=== PATIENT | male | born 1955 | race Caucasian/White ===

== ENCOUNTER → 2016-12-14 | Outpatient (CLI) | payer MEDICARE ==
--- NOTE | 2016-12-15 09:42 | PE ---
Nuclear medicine PET/CT HISTORY: Lymphoma Patient received 13.6 mCi F-18 FDG intravenously. Delayed scanning performed from the skull base thro ugh the mid thighs. Localization and attenuation correction CT scan was performed, exam correlated to prior nuclear medicine PET/CT 08 June 2016 FINDINGS: Neck and chest: There is no evident adenopathy. Dense carotid artery calcifications are present. No m ediastinal, axillary, or hilar adenopathy. Patient is post median sternotomy, dense coronary artery c alcifications are present. There is no evident lung mass. No significant hypermetabolic uptake is sandra dent. ABDOMEN: No retroperitoneal adenopathy. No hypermetabolic uptake. Patient is post cholecystectomy. Pr ostatic calcifications again seen. Osseous structures are unremarkable. No significant interval change. IMPRESSION: Stable exam. No suspicious hypermetabolic uptake is evident. No evident adenopathy or rec urrent disease.
== END | disposition home or self-care (01) ==
LOC: RADPETMAIN 07:23
PROVIDERS: ATTEND Internal Medicine Hematology & Oncology
DX: C85.19 Unspecified B-cell lymphoma, extranodal and solid organ sites (principal)
CPT/HCPCS: 78815; A9552

== ENCOUNTER → 2017-01-17 | Outpatient (CLI) | payer MEDICARE, BC ==
[2017-01-17 12:20] LABS: EKG EKG PERFORMED
[2017-01-17 12:57] LABS: Basophils % (A) 1 %; CH 32.9; Eosinophils # (A) 0.1 k/uL (0-0.7); Eosinophils % (A) 2 %; HCT 37.9 % (39.0-53.0); HDW 3.29; HGB 12.6 gm/dL (13.0-17.5); Luc # (Auto) 0.11; Luc % (Auto) 3; Lymphocytes # (A) 0.8 k/uL (1.0-4.8); Lymphocytes % (A) 20 %; MCH 32.5 pg (25.0-35.0); MCHC 33.3 g/dL (31.0-37.0); MCV 97.4 fL (80.0-100.0); Mean Platelet Volume 6.9; Monocytes # (A) 0.3 k/uL (0-1.0); Monocytes % (A) 9 %; Neutrophils # (A) 2.5 k/uL (1.3-7.7); Neutrophils % (A) 66 %; RBC 3.88 m/uL (4.30-5.90); RDW 15.1 % (11.5-15.5); WBC 3.8 k/uL (3.8-10.6); WBC (Perox) 3.88
[2017-01-17 13:01] LABS: Appearance,Urine Clear (Clear); Bilirubin,Urine Negative (Negative); Glucose,Urine (UA) Negative (Negative); Ketones,Urine Negative (Negative); Leukocyte Esterase,Urine Negative (Negative); Nitrite,Urine Negative (Negative); Protein,Urine Negative (Negative); Specific Gravity,Urine 1.004 (1.001-1.035); UA Billing (MACRO vs. MICRO) CHEM; Urobilinogen,Urine <2.0 mg/dL (<2.0)
[2017-01-17 13:02] LABS: INR 1.1 (<1.1); Partial Thromboplastin Time 23.3 sec (22.0-30.0); Prothrombin Time 10.7 sec (9.0-12.0)
[2017-01-17 13:19] LABS: ALT 31 U/L (21-72); AST 26 U/L (17-59); Alkaline Phosphatase 55 U/L (38-126); Anion Gap 12 mmol/L; Blood Urea Nitrogen 14 mg/dL (9-20); Calcium 9.3 mg/dL (8.4-10.2); Carbon Dioxide 23 mmol/L (22-30); Chloride 105 mmol/L (98-107); Glucose 89 mg/dL (74-99); Non-African American GFR(MDRD) >60 (>60 ml/min/1.73 sqM); Potassium 4.5 mmol/L (3.5-5.1); Sodium 140 mmol/L (137-145); Total Bilirubin 0.7 mg/dL (0.2-1.3)
== END | disposition home or self-care (01) ==
LOC: LABPAT 12:09
PROVIDERS: ATTEND Orthopaedic Surgery Sports Medicine
DX: Z01.810 Encounter for preprocedural cardiovascular examination (principal); Z01.812 Encounter for preprocedural laboratory examination; Z51.81 Encounter for therapeutic drug level monitoring; Z79.01 Long term (current) use of anticoagulants
CPT/HCPCS: 80053; 81003; 85025; 85610; 85730; 87070; 93005

== ENCOUNTER 2017-02-06 09:26 | Inpatient (IN) | payer MEDICARE, BC ==
[~2017-02-06 09:26] MED LIST: ACETAMINOPHEN TAB 500 MG TAB PO ONE; DEXAMETHASONE SOD PHOSPHATE 10 MG/ML 1 ML VIAL IV ONE; HYDROmorphone 1 MG/ML 1 ML SYRINGE IVP PRN; LACTATED RINGERS 1,000 ML IV SCH; MELOXICAM 7.5 MG TAB PO ONE; MIDAZOLAM 2 MG/2 ML VIAL IV PRN; ONDANSETRON 4 MG/2 ML VIAL IVP ONE; TRANEXAMIC ACID 1,000 MG in SODIUM CHLORIDE 0.9% 100 ML IVPB ONE; ceFAZolin 2 GM in SODIUM CHLORIDE 0.9% 100 ML IVPB ONE
[2017-02-06] MEDS ORDERED: LIDOCAINE 1% 20 ML VIAL (10MG/ML) FOR IV START INTRADERMA ONE (09:48)
[2017-02-06] MEDS ORDERED: SUCCINYLCHOLINE CHLORIDE 100 MG/5 ML SYR IV ONE (11:00)
[2017-02-06] MEDS ORDERED: TRANEXAMIC ACID 1,000 MG/10 ML VIAL ONE (11:00)
[2017-02-06] MEDS ORDERED: SODIUM CHLORIDE 0.9% 100 ML BAG ONE (11:00)
[2017-02-06] MEDS ORDERED: HYDROmorphone (PF) 1 MG/ML ONE (11:00)
[2017-02-06] MEDS ORDERED: ROCURONIUM BROMIDE 10 MG/ML 10 ML VIAL IV ONE (11:00)
[2017-02-06] MEDS ORDERED: PROPOFOL 10 MG/ML 20 ML VIAL IV ONE (11:00)
[2017-02-06] MEDS ORDERED: MIDAZOLAM 2 MG/2 ML VIAL ONE (11:00)
[2017-02-06] MEDS ORDERED: ePHEDrine 50 MG/ML 1 ML AMP ONE (11:00)
[2017-02-06] MEDS ORDERED: NEOSTIGMINE 1 MG/ML 10 ML VIAL ONE (11:00)
[2017-02-06] MEDS ORDERED: fentaNYL (PF) 50 MCG/ML 2 ML AMP ONE (11:00)
[2017-02-06] MEDS ORDERED: LIDOCAINE 1% INJ 10MG/ML (20 ML MDV) ONE (11:00)
[2017-02-06] MEDS ORDERED: PHENYLEPHRINE-0.9% NACL SYG 1 MG/10 ML SYRINGE ONE (11:00)
[2017-02-06] MEDS ORDERED: GLYCOPYRROLATE 0.2 MG/ML 2 ML VIAL ONE (11:00)
[2017-02-06] MEDS ORDERED: ceFAZolin 3,000 MG in SODIUM CHLORIDE 0.9% IRRIGATIO 3,000 ML IRRIGATION ONE (11:59)
[2017-02-06] MEDS ORDERED: LACTATED RINGERS 1,000 ML IV ONE ×3 (12:36→14:33)
[2017-02-06] MEDS ORDERED: VANCOMYCIN 1,000 MG VIAL MISCELLANE ONE (12:50)
[2017-02-06] MEDS ORDERED: hydrOXYzine PAMOATE 25 MG CAP PO PRN (13:32)
[2017-02-06] MEDS ORDERED: SENNOSIDES-DOCUSATE SODIUM 1 EACH TAB PO PRN (13:32)
[2017-02-06] MEDS ORDERED: PROCHLORPERAZINE SUPPOSITORY 25 MG SUPP RECTAL PRN (13:32)
[2017-02-06] MEDS ORDERED: METOCLOPRAMIDE 5 MG/ML 2 ML VIAL IVP PRN (13:32)
[2017-02-06] MEDS ORDERED: TEMAZEPAM 15 MG CAP PO PRN (13:32)
[2017-02-06] MEDS ORDERED: HYDROcodone/APAP 5-325MG 1 EACH TAB PO PRN (13:32)
[2017-02-06] MEDS ORDERED: HYDROmorphone 1 MG/ML 1 ML SYRINGE IVP PRN ×2 (13:32)
[2017-02-06] MEDS ORDERED: diphenhydrAMINE 25 MG CAP PO PRN (13:32)
[2017-02-06] MEDS ORDERED: ONDANSETRON 4 MG/2 ML VIAL IVP PRN (13:32)
--- NOTE | 2017-02-06 14:13 | XR ---
Right shoulder HISTORY: Postop alignment Single frontal view of the right shoulder, no comparisons Patient is status post right shoulder arthroplasty. There is a surgical drain in place. Alignment lakhwinder ears near anatomic in this single view. Distal right clavicular resection changes noted. Facet arthro chanel and the cervical spine. There are overlying leads. Vascular calcifications noted incidentally. Lucency in the soft tissues likely due to postop state. IMPRESSION: Orthopedic follow-up
[2017-02-06 15:01] VITALS: BMI 30.1
[2017-02-06] MEDS: ceFAZolin 2 GM in SODIUM CHLORIDE 0.9% 100 ML IVPB SCH (17:17)
[2017-02-06] MEDS: LACTATED RINGERS 1,000 ML IV SCH (17:19)
[2017-02-06] MEDS ORDERED: NITROGLYCERIN SL TABS 0.4 MG TAB SUBLINGUAL PRN (18:17)
[2017-02-06] MEDS ORDERED: HYDROCHLOROTHIAZIDE 12.5 MG CAP PO PRN (18:17)
--- NOTE | 2017-02-06 18:43 | P.ONQ ---
Anesthesiology Proc Note - PNB - Peripheral Nerve Block Performed Right Interscalene Single Time Out Performed: Yes Indication: Acute Post-Operative Pain, Requested by physician Sedation Type: Awake Preparation: Sterile Prep Position: Supine Catheter: None Needle Size: 50mm (2") Needle Gauge: 21 Technique: Ultrasound Injectate: 0.5% Ropivacaine (see comment for volume) (ropi .5% 20cc plus xylo2 % with epi 15cc) Blood Aspirated: No Pain Paresthesia on Injection Noted: No Resistance on Injection: Normal Events: Uneventful and Well Tolerated
[2017-02-06] MEDS: HYDROcodone/APAP 5-325MG 1 EACH TAB PO PRN (19:55)
[2017-02-06] MEDS ORDERED: TICAGRELOR 90 MG TAB PO SCH (21:00)
[2017-02-06] MEDS ORDERED: ATORVASTATIN 80 MG TAB PO SCH (21:00)
[2017-02-06] MEDS ORDERED: amLODIPine 5 MG TAB PO SCH (21:00)
[2017-02-06] MEDS ORDERED: FOLIC ACID 1 MG TAB PO SCH (21:00)
[2017-02-06] MEDS: MORPHINE SULFATE IR 15 MG TABLET PO SCH (22:12)
[2017-02-06] MEDS: TICAGRELOR 90 MG TAB PO SCH (22:13)
[2017-02-06] MEDS: DOXYCYCLINE 50 MG CAP PO SCH (22:13)
[2017-02-06] MEDS: ISOSORBIDE MONONITRATE ER 60 MG TAB.ER.24H PO SCH (22:33)
[2017-02-06] MEDS: RANOLAZINE 500 MG TAB.ER.12H PO SCH (22:34)
[2017-02-06] MEDS: GABAPENTIN 300 MG CAP PO SCH (22:34)
[2017-02-06] MEDS: METOPROLOL TARTRATE 50 MG TAB PO SCH (22:34)
--- NOTE | 2017-02-07 00:01 | OP ---
DATE OF SERVICE: 02/06/2017 SURGEON: OMID THOMAS MD CATERER HELPER: Spenser SIDHU PREOPERATIVE DIAGNOSIS: Right shoulder advanced osteoarthrosis. POSTOPERATIVE DIAGNOSIS: Right shoulder advanced osteoarthrosis with large rotator cuff tear. OPERATION: Right reverse total shoulder arthroplasty. ANESTHESIA: General endotracheal. ESTIMATED BLOOD LOSS: 200 mL DRAINS: One deep drain. SPECIMENS REMOVED: COMPLICATIONS: None apparent. DISPOSITION: Post-Anesthesia Care Unit. OPERATIVE FINDINGS: DESCRIPTION OF PROCEDURE: INDICATIONS: Mr. Batres is a very pleasant 61-year-old gentleman with long-standing right shoulder pain. Workup including x-rays and MRI revealed advanced osteoarthritis of the right shoulder with a full-thickness rotator cuff tear. At this point it is felt that he has failed conservative management and he would like to proceed with operative intervention. The risks of the procedure were discussed with him in detail. These risks include but are not limited to risk of infection, nerve damage, bleeding, pain, instability in the shoulder, loosening of implants and deep infection. There is also a risk of deep vein thrombosis which could lead to fatal prominent pulmonary embolism. The patient understood the risks. All of his questions with regards to the risks were answered to his satisfaction. Appropriate informed consent was obtained. DESCRIPTION OF THE PROCEDURE: The patient was identified in the preoperative holding area. The surgical site was marked by both the patient and myself. He was given 2 grams of Ancef IV for prophylactic purposes. He was then transferred to the operative suite, where he was placed supine on the operating room table. General anesthetic was then administered and dosed by the anesthesia department without apparent complication. Examination under anesthesia was then performed of the right shoulder. He had elevation to 120 degrees, external rotation to the side was to 30 degrees. Patient's right upper extremity was then prepped and draped in the usual sterile fashion. Standard surgical pause was then undertaken to ensure that we were operating on the correct site and that appropriate preoperative antibiotics had been given. All staff in the room were in agreement and we proceeded. The acromion, AC joint, clavicle and coracoid were marked with a surgical pen. He had a previous incision over his clavicle extending distally that was also marked with a surgical pen. A planned incision starting at the level of the clavicle, incorporating his previous incision and extending distally over the deltopectoral interval approximately 1 cm lateral to the coracoid, was then marked with a surgical pen. The incision was then made with a 10 blade scalpel. Dissection was then carried down sharply to the deltoid fascia. The deltopectoral interval was identified at the level of the clavicle. A small band retractor was then placed onto the proximal deltoid. I then released the deltoid fascia on the lateral aspect of the cephalic vein. The vein was protected and left in its bed medially. The cephalic vein was protected throughout the rest of the entire case. I then identified the clavipectoral fascia. It was incised proximally to the level of the coracoacromial ligament. The coracoacromial ligament was left intact. I then used my finger to spread the interval between the conjoined tendon and the subscapularis. I felt for the axillary nerve, which was readily palpable. I then cleared the subacromial and subdeltoid spaces of bursal and scar tissue. I then utilized a Kuamr retractor to hold the deltoid and expose the humeral head. I then proceeded with release of the subscapularis and the anterior/inferior shoulder capsule. The rotator cuff was inspected; a very large tear of the supraspinatus. That was retracted to the mid aspect of the humeral head. The course of the biceps tendon was also identified. I then released subscapularis at the base of the coracoid and then out laterally. The subscapularis and the anterior capsule were then released intratendinously. The subscapularis and the capsule release extended distally in a lazy S fashion, approximately 1 cm medial to the bicipital groove. I then continued to release the capsule along the inferior neck in a vertical fashion to about the 6 o'clock position. Great care was taken to ensure that the capsule was always visualized as it was released to avoid injuring the axillary nerve. I then brought a Guzmán channel cementer insole machine with the arm externally rotated and abducted. I continued to release the capsule inferomedially to the 4 o'clock position. The inferior osteophytes were now removed as well. This was done with a rongeur. I then proceeded with preparation of the humerus. I removed all the inferior goat's hartley osteophytes. I then removed the subchondral plate from the superior aspect of the humeral head utilizing a large rongeur. I then used a starter reamer to gain access to the humeral canal. This was approximately 1 cm medial to the rotator cuff insertion and 1 cm posterior to the bicipital groove. I then prepared the humeral canal with hand reaming. I started with a 6 mm reamer and progressed in 1 mm increments until firm resistance was encountered. This was at 13 mm. Reamer handle was then left in place. I then utilized the humeral resection guide set at 30 degrees of retrotorsion. The cutting block was then set at the insertion of the rotator cuff. I then proceeded to osteotomize the head with an oscillating saw. I removed the resection guide and then completed the osteotomy. I then proceeded with trial stem placement, starting with a 6 mm broach up to a 13 mm broach. A 13 mm trial mini stem was then placed. At this point I did release the biceps tendon. This was tenotomized at the level of the superior labrum. Prior to tenotomizing the biceps, I tenodesed it to the soft tissue about the bicipital groove. A bone hook was then utilized to pull the humerus laterally. I then inspected the joint for any loose bodies. The condition of the cuff was again inspected. He had a very large tear of the supraspinatus. Decision at this point was to go forward with a reverse total shoulder arthroplasty. The Batman retractor was then placed onto the posterior glenoid rim. With the arm placed in approximately 70 to 80 degrees of abduction and slight flexion on the Guzmán stand, I proceeded to remove the hypertrophic labrum to definitively identify the actual glenoid. I then identified the center of the glenoid fossa. The mini glenoid baseplate template was then placed against the glenoid and the pin was placed with 10 degrees of inferior tilt in the center of the glenoid. I then proceeded with reaming. I utilized the mini baseplate reamer and reamed. This preferentially reamed the inferior aspect of the glenoid, again accounting for inferior tilt of the baseplate. I then placed the mini glenoid baseplate and proceeded with placing of the central and peripheral screws. The central screw was a 35 mm central screw. It had excellent purchase in bone. I was able to rotate the scapula through the screwdriver once the screw was firmly seated. I then placed the peripheral screws. The superior and inferior screws were 25 mm locking screws. The anterior and posterior screws were 15 mm locking screws. I then proceeded to place the glenosphere. I selected a 36 standard glenosphere. It was then offset maximally to allow for inferior placement of the glenosphere. The glenosphere was then impacted onto the Maldonado taper of the base plate. I then delivered the proximal humerus out of the wound again. The trial stem was removed. I then trialed the shoulder. I placed a 36 standard baseplate and standard poly. It was very difficult to reduce the shoulder. It was stable throughout. A full range of motion with this tension seemed appropriate. There was no undue tension on the conjoined tendon or on the deltoid. It was then re-dislocated utilizing a bone hook to assist in re-dislocating. I then decided to go forward with a standard baseplate and standard poly. The trial stem was then removed. The maintenance representative open a Biomet 13 mini stem, a standard 36 baseplate and a standard 36 poly. The stem was then inserted in 30 degrees of retrotorsion. The standard poly and baseplate were assembled on the back table and then impacted onto the Maldonado taper of the stem. The shoulder was then reduced. Again it was taken through a full range of motion. It was stable. There was no undue tension on the conjoined tendon or the deltoid. There was no impingement noted throughout the range of motion. I then proceeded with closure. Again the wound was thoroughly irrigated with sterile saline solution via pulse lavage. There was antibiotic added to the saline solution. I then felt for the axillary nerve, which was again readily palpable and intact. I then proceeded with closure of the subscapularis. I was able to repair it. This was then repaired with #1 Vicryl interrupted suture. This was done with the arm in approximately 20 degrees of external rotation. I again felt for the axillary nerve, which was readily palpable and intact. The wound was again thoroughly irrigated with sterile saline solution with antibiotic added. A deep drain was then placed and brought out superiorly away from the incision. Approximately 500 mg of vancomycin powder was then placed within the wound. The deltopectoral interval was then closed with 0 Vicryl interrupted suture. Again the wound was thoroughly irrigated with sterile saline solution with antibiotic added. The remaining 500 mg of vancomycin powder was then placed within the wound. Subcutaneous tissue was then closed with 2-0 Vicryl interrupted suture and the skin was closed with a running 3-0 Quill suture. Dermabond was applied to the incision. Sterile compressive dressing was applied. Patient's right upper extremity was placed into a standard sling. Final components were a Biomet mini baseplate, a 36 standard glenosphere, a 13 mini stem, 36 standard baseplate and a 36 standard poly. All sponge and needle counts were deemed correct prior to closure. The patient tolerated the procedure without apparent complication. He was transferred to the recovery room in stable condition.
[2017-02-07] MEDS: HYDROcodone/APAP 5-325MG 1 EACH TAB PO PRN ×2 (01:43→08:17)
[2017-02-07] MEDS: ceFAZolin 2 GM in SODIUM CHLORIDE 0.9% 100 ML IVPB SCH (01:43)
[2017-02-07] MEDS: HYDROmorphone 1 MG/ML 1 ML SYRINGE IVP PRN ×3 (04:05→09:56)
[2017-02-07] MEDS: LACTATED RINGERS 1,000 ML IV SCH ×2 (04:05→09:56)
--- NOTE | 2017-02-07 07:36 | CONS ---
DATE OF CONSULTATION: REASON FOR CONSULTATION: Advice regarding CAD and other medications requested by Orthopedic Surgery. 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 Elliot Grande in the outpatient setting underwent total right shoulder arthroplasty. The patient improved significantly. There is no significant fever, rigors or chills. There is no history of headache, loss of consciousness, no chest pain, palpitations. Past medical history of CAD, history of COPD, hypertension, hyperlipidemia, history of myocardial infarction, history of DJD, history of sleep apnea. Medications prior to admission include Norvasc 5 mg q.h.s., Brilinta 90 mg p.o. b.i.d., Crestor 40 mg q.h.s., Ranexa 1000 mg p.o. b.i.d., Nitrostat 0.4 sublingual p.r.n., MSIR 50 mg p.o. b.i.d., Lopressor 50 mg p.o. b.i.d., Cozaar 50 mg p.o. daily, Imdur is 120 mg p.o. b.i.d., [place] 5 mg 1 tablet q.4 to 6 p.r.n., HydroDIURIL 12.5 p.o. daily p.r.n., Neurontin 300 mg p.o. b.i.d., folic acid 1 mg q.h.s., Ecotrin 81 mg p.o. daily. ALLERGIES: ADHESIVES. FAMILY HISTORY: History of cancer and hypertension in the family. SOCIAL HISTORY: Previous history of smoking. Occasional alcohol intake. REVIEW OF SYSTEMS: ENT: No diminishing hearing. No diminished vision. CARDIOVASCULAR: No angina or palpitation. RESPIRATION: As mentioned earlier. GI: No nausea. : No dysuria. NERVOUS SYSTEM: No numbness or weakness. ALLERGY/IMMUNOLOGY: No asthma or hayfever. MUSCULOSKELETAL: As mentioned earlier. HEMATOLOGY/ONCOLOGY: As mentioned earlier. ENDOCRINE: No history of diabetes or hypothyroidism. CONSTITUTIONAL: As mentioned earlier. DERMATOLOGY: Negative. RHEUMATOLOGY: Negative. PSYCHIATRY: As mentioned earlier. PHYSICAL EXAM: Patient is alert and oriented x3. Pulse if 67, blood pressure 97/53, respirations 16, temperature is normal. Pulse ox is 95% on 2 L. HEENT: Conjunctivae normal. Oral mucosa moist. NECK: No jugular venous distention. No carotid bruit. No lymph node enlargement. CARDIOVASCULAR SYSTEM: S1, S2. RESPIRATORY: Breath sounds diminished at the bases. No rhonchi, no crackles. Abdomen is soft, nontender, no mass palpable. LEGS: No edema, no swelling. NERVOUS SYSTEM: Higher functions as mentioned earlier, moves all 4 limbs. No focal deficits. LYMPHATICS: No lymph node enlargement. SKIN: No ulcer, rash or bleeding. JOINTS: Status post right shoulder arthroplasty. LABS: Hemoglobin 12.6. Otherwise, the coags are normal. Chemistries, sugar is 147, total protein is 6. ASSESSMENT: 1. Status post right shoulder arthroplasty. 2. History of large diffuse B-cell lymphoma. 3. Coronary artery disease, coronary artery bypass grafting, stent history. 4. History of chest pain, angina. 5. History of chronic obstructive pulmonary disease. 6. Hypertension. 7. Hyperlipidemia. 8. History of myocardial infarction. 9. History of degenerative joint disease. 10. History of sleep apnea. 11. History of depression, not otherwise specified. 12. Remote history of nicotine dependence. 13. History of essential hypertension. RECOMMENDATIONS AND DISCUSSION: In this 61-year-old gentleman who presented with multiple complex medical issues, will monitor the patient closely. Continue with the current medications. Continue with the symptomatic treatment. I recommend resume the home medications and DVT prophylaxis and incentive spirometry. Patient may be asked to follow up with Dr. Grande after discharge and will follow the patient closely. Thank you, Dr. Song for letting us participate in the care of this patient. ALLISON
[2017-02-07 07:45] LABS: Basophils % (A) 0 %; CH 32.9; CHCM 33.5; Eosinophils % (A) 0 %; HDW 3.22; HGB 11.2 gm/dL (13.0-17.5); Luc # (Auto) 0.18; Luc % (Auto) 2; Lymphocytes # (A) 0.6 k/uL (1.0-4.8); Lymphocytes % (A) 5 %; MCH 32.4 pg (25.0-35.0); MCHC 32.8 g/dL (31.0-37.0); MCV 98.8 fL (80.0-100.0); Mean Platelet Volume 6.8; Monocytes # (A) 0.9 k/uL (0-1.0); Monocytes % (A) 8 %; Neutrophils # (A) 9.9 k/uL (1.3-7.7); Neutrophils % (A) 85 %; RBC 3.44 m/uL (4.30-5.90); RDW 15.2 % (11.5-15.5); WBC 11.6 k/uL (3.8-10.6); WBC (Perox) 12.06
[2017-02-07] MEDS ORDERED: LOSARTAN 50 MG TAB PO SCH (08:00)
[2017-02-07] MEDS: TICAGRELOR 90 MG TAB PO SCH (08:16)
[2017-02-07] MEDS: RANOLAZINE 500 MG TAB.ER.12H PO SCH (08:16)
[2017-02-07] MEDS: ISOSORBIDE MONONITRATE ER 60 MG TAB.ER.24H PO SCH (08:16)
[2017-02-07] MEDS: GABAPENTIN 300 MG CAP PO SCH (08:16)
[2017-02-07] MEDS: DOXYCYCLINE 50 MG CAP PO SCH (08:16)
[2017-02-07] MEDS: MORPHINE SULFATE IR 15 MG TABLET PO SCH (08:16)
[2017-02-07] MEDS: METOPROLOL TARTRATE 50 MG TAB PO SCH (08:17)
[2017-02-07] MEDS ORDERED: ASPIRIN 81 MG CHEW PO SCH (09:00)
[2017-02-07] MEDS ORDERED: HYDROcodone/APAP 7.5-325MG 1 EACH TAB PO PRN ×2 (09:37)
--- NOTE | 2017-02-07 11:06 | P.PN ---
Subjective Principal diagnosis: Status post reverse total shoulder arthroplasty Patient is a pleasant 61-year-old male seen at bedside this morning. He is postop day #1 from reverse total shoulder arthroplasty in the right. He has pain at the surgical site as expected. He denies new complaints. He denies numbness or tingling in the right upper extremity, hand or fingers. Review of systems is negative for fever, chills, chest pain, shortness breath, nausea, vomiting, dizziness, headaches, slurred speech or other. Objective - Vital Signs Vital signs: Vital Signs Temp 97.3 F L 02/07/17 07:00 Pulse 71 02/07/17 07:00 Resp 16 02/07/17 07:00 BP 109/62 02/07/17 07:00 Pulse Ox 93 L 02/07/17 07:00 Intake & Output 02/06/17 02/07/17 02/07/17 18:59 06:59 18:59 Intake Total 5430 1340 320 Output Total 1150 40 Balance 4280 1340 280 Weight 82.1 kg Intake: IV 4950 Intake, IV Titration 800 Amount Lactated Ringers 1,000 ml 800 @ 100 mls/hr IV .Q10H CLEMENTE Rx#:[id number] Oral 480 540 320 Output: Drainage 40 Right Shoulder 40 Urine 950 Estimated Blood Loss 200 Other: Voiding Method Toilet Toilet Urinal Urinal - Exam Inspection of right upper extremity shows no evidence of active wound bleeding, dehiscence or drainage. Hemovac drain is in place. Upper extremity is neurologically intact with motor and sensation in the elbow, and wrist and fingers. Sensation to light touch is intact with the right upper extremity. 2 + radial pulses present. Less than 2 second cap refill is present. - Constitutional General appearance: Present: no acute distress - Psychiatric Psychiatric: Present: A&O x's 3, appropriate affect, intact judgment & insight - Labs CBC & Chem 7: 02/07/17 07:00 Labs: Abnormal Lab Results - Last 24 Hours (Table) 02/07/17 Range/Units 07:00 WBC 11.6 H (3.8-10.6) k/uL RBC 3.44 L (4.30-5.90) m/uL Hgb 11.2 L (13.0-17.5) gm/dL Hct 34.0 L (39.0-53.0) % Neutrophils # 9.9 H (1.3-7.7) k/uL Lymphocytes # 0.6 L (1.0-4.8) k/uL Assessment and Plan (1) Status post reverse arthroplasty of right shoulder Narrative/Plan: Patient is doing well postop day #1. I held off on discontinuing his Hemovac as the was placed back on his blood thinner and has had a fair amount of output. Wound is benign. Continue to monitor his pain as he was on preoperative pain medications including [place] and morphine. We'll continue to monitor drain output, hemoglobin and hematocrit. Expect that he should be able to discharge to home tomorrow if okay with internal medicine as well. Status: Acute Time with Patient: Less than 30
--- NOTE | 2017-02-07 13:56 | P.DS ---
Providers Date of admission: 02/06/17 09:26 Expected date of discharge: 02/07/17 Attending physician: Varinder Song Consults: 02/06/17 13:32 Consult Physician Routine Consulting Provider: Moreno Malik Consult Reason/Comments: post op medical management Do you want consulting provider notified?: Yes Primary care physician: Elliot Manzanares Harjinder - Discharge Diagnosis(es) (1) Status post reverse arthroplasty of right shoulder Patient was admitted to the OR on 02/06/2017 to undergo reverse right total shoulder arthroplasty per Dr. Song. He had failed conservative measures as an outpatient and desired to proceed with elective surgery after given informed consent. He underwent the above procedure which she tolerated well without complication. On day of discharge he desires discharge to home. On day of discharge he is afebrile, vital signs stable, wound is benign, labs within acceptable ranges, drains were discontinued, neurovascular status intact with motor and sensation of the right upper extremity, 2+ radial pulse present, abdomen soft nontender, calf soft nontender, tolerating by mouth meds and diet, voiding without difficulty, passing flatus, pain controlled with oral pain medication and denying any new complaints. Review of systems negative for fever , chills, chest pain, shortness breath, nausea, vomiting, dizziness, headaches, slurred speech, numbness tingling, abdominal pain, calf pain or other. Current Visit: Yes Status: Acute Priority: Medium Patient Condition at Discharge: Good Plan - Discharge Summary New Discharge Prescriptions: Doxycycline Hyclate 100 mg PO BID #10 tab HYDROcodone/APAP 7.5-325MG [[place] 7.5-325] 1 - 2 tab PO Q6HR PRN #60 tab PRN Reason: Pain Discharge Medication List Folic Acid 1 mg PO HS 02/23/14 [History] Isosorbide Mononitrate [Imdur] 120 mg PO BID@02/23/14 [History] Losartan [Cozaar] 50 mg PO DAILY@79902/23/14 [History] Ranolazine [Ranexa] 1,000 mg PO BID@799,199902/23/14 [History] Rosuvastatin Calcium [Crestor] 40 mg PO HS 02/23/14 [History] Gabapentin [Neurontin] 300 mg PO TID 04/27/15 [History] Aspirin EC [Ecotrin Low Dose] 81 mg PO DAILY #30 tablet. 08/16/15 [Rx] Nitroglycerin Sl Tabs [Nitrostat] 0.4 mg SUBLINGUAL Q5M PRN #25 tab 08/16/15 [Rx ] Ticagrelor [Brilinta] 90 mg PO BID #60 tab 08/16/15 [Rx] Metoprolol Tartrate [Lopressor] 50 mg PO BID 11/06/15 [History] amLODIPine [Norvasc] 5 mg PO HS #30 11/11/15 [Rx] Hydrochlorothiazide [Hydrodiuril] 12.5 mg PO DAILY PRN 02/03/17 [History] Morphine Sulfate Ir [Msir] 15 mg PO BID 02/03/17 [History] Hydrocodone/Acetaminophen [[place] 5-325] 1 - 2 tab PO Q4HR PRN 02/06/17 [History] Doxycycline Hyclate 100 mg PO BID #10 tab 02/07/17 [Rx] HYDROcodone/APAP 7.5-325MG [[place] 7.5-325] 1 - 2 tab PO Q6HR PRN #60 tab [Rx] Follow up Appointment(s)/Referral(s): Varinder Song MD [STAFF PHYSICIAN] - 10 Days Activity/Diet/Wound Care/Special Instructions: Keep wound clean and dry Maintain sling Take meds as directed Follow up with Dr. Song in office and [id number] Nonweightbearing right upper extremity Discharge Disposition: HOME SELF-CARE
[2017-02-07 14:37] VITALS: TEMP 97.9
[2017-02-07 16:16] VITALS: BP 122/53; PULSE 73; RESP 16
--- NOTE | 2017-02-08 09:00 | PN ---
DATE OF SERVICE: 02/07/2017 This 61-year-old gentleman who was admitted after shoulder arthroplasty, improved significantly. No chest pain, no palpitations. No fever. On exam, alert and oriented x3. Pulse is 48, blood pressure 153/60, respirations 20, temperature 97.9, pulse ox 90% on room air. Pulse is improved to 73. HEENT: Conjunctivae normal. NECK: No jugular venous distention. CARDIOVASCULAR: S1 and S2. RESPIRATORY: Breath sounds diminished at the bases. No rhonchi, no crackles. ABDOMEN: Soft, nontender. LEGS: No edema, no swelling. NERVOUS SYSTEM: No focal deficits. RIGHT SHOULDER: Status post shoulder arthroplasty. LABS: WBC 11, hemoglobin 11.6. ASSESSMENT: 1. Status post right shoulder arthroplasty. 2. Increased WBC, possibly reactive. 3. Anemia, possibly dilutional. 4. History of large diffuse B cell lymphoma. 5. History of coronary artery disease, coronary artery bypass grafting and stent. 6. History of chest pain and angina. 7. History of chronic obstructive pulmonary disease. 8. Hypertension, essential, history. 9. Hyperlipidemia. 10. History of myocardial infarction. 11. History of bradycardia, improved. 12. History of degenerative joint disease. 13. History of sleep apnea. 14. History of depression, not otherwise specified. 15. Remote history of nicotine dependence. 16. History of essential hypertension. 17. FULL CODE. RECOMMENDATIONS AND DISCUSSION: I recommend to continue the current medications, continue monitoring and symptomatic treatment. Continue with incentive spirometry. Otherwise closely follow with the primary physician. Guarded prognosis. Further recommendations to follow.
== END 2017-02-07 16:30 | disposition home or self-care (01) | DRG 483 ==
LOC: 2ORMAIN 09:26 → 3SUR 13:44
PROVIDERS: ADMIT Orthopaedic Surgery Sports Medicine; ATTEND Orthopaedic Surgery Sports Medicine
PROC: 0RRJ00Z Replacement of Right Shoulder Joint with Reverse Ball and Socket Synthetic Substitute, Open Approach (ICD-10-PCS; principal; 2017-02-06 11:00)
DX: M19.011 Primary osteoarthritis, right shoulder (principal); I10 Essential (primary) hypertension; E78.5 Hyperlipidemia, unspecified; D64.9 Anemia, unspecified; G47.30 Sleep apnea, unspecified; I25.10 Atherosclerotic heart disease of native coronary artery without angina pectoris; I25.2 Old myocardial infarction; J44.9 Chronic obstructive pulmonary disease, unspecified; Z79.899 Other long term (current) drug therapy; Z82.49 Family history of ischemic heart disease and other diseases of the circulatory system; Z87.891 Personal history of nicotine dependence; Z95.1 Presence of aortocoronary bypass graft; Z95.5 Presence of coronary angioplasty implant and graft; Z85.72 Personal history of non-Hodgkin lymphomas
CPT/HCPCS: 64415; 85025; 88305; 88311

== ENCOUNTER → 2017-02-12 | Outpatient (CLI) | payer MEDICARE, BC ==
--- NOTE | 2017-02-12 16:33 | US ---
EXAMINATION TYPE: US venous doppler duplex UE RT DATE OF EXAM: 02/12/2017 3:38 PM COMPARISON: NONE CLINICAL HISTORY: RUE Edema R60.0. pt had rt rotator cuff surgery 1 wk ago; currently on thinners SIDE PERFORMED: right Right Arm: neg for RUE dvt Results called to Sallie in the office at the time of the exam. IMPRESSION: No deep venous thrombosis right upper extremity.
== END | disposition home or self-care (01) ==
LOC: RADUSWWP 15:11
PROVIDERS: ATTEND Family Medicine
DX: R60.0 Localized edema (principal)

== ENCOUNTER → 2017-05-03 | Outpatient (CLI) | payer MEDICARE, BC ==
[2017-05-03 10:27] LABS: CH 31.9; CHCM 34.1; HCT 41.4 % (39.0-53.0); HDW 3.19; HGB 14.2 gm/dL (13.0-17.5); MCH 32.2 pg (25.0-35.0); MCHC 34.2 g/dL (31.0-37.0); Mean Platelet Volume 6.9; RBC 4.41 m/uL (4.30-5.90); RDW 15.3 % (11.5-15.5); WBC 5.3 k/uL (3.8-10.6)
--- NOTE | 2017-05-03 10:42 | XR ---
EXAMINATION TYPE: XR chest 2V DATE OF EXAM: 05/03/2017 HISTORY: SOB. REFERENCE: Previous study dated 10/23/2015. FINDINGS: There is a right shoulder arthroplasty in place. There has been a miniscule line sternotomy . The lungs are clear. Pleural spaces are clear. Heart size is within normal limits. IMPRESSION: NO ACUTE INTRATHORACIC ABNORMALITY.
[2017-05-03 10:48] LABS: ALT 38 U/L (21-72); AST 25 U/L (17-59); Alkaline Phosphatase 71 U/L (38-126); Anion Gap 12 mmol/L; Blood Urea Nitrogen 17 mg/dL (9-20); Calcium 9.3 mg/dL (8.4-10.2); Carbon Dioxide 26 mmol/L (22-30); Chloride 101 mmol/L (98-107); Glucose 126 mg/dL (74-99); Non-African American GFR(MDRD) >60 (>60 ml/min/1.73 sqM); Potassium 4.3 mmol/L (3.5-5.1); Sodium 139 mmol/L (137-145); Total Protein 6.5 g/dL (6.3-8.2)
== END ==
LOC: LABWHC1 10:14
PROVIDERS: ATTEND Internal Medicine Cardiovascular Disease
DX: R06.02 Shortness of breath (principal)
CPT/HCPCS: 36415; 71020; 80053; 83880; 85027

== ENCOUNTER 2017-05-05 08:53 | Day surgery (SDC) | payer MEDICARE, BC ==
[~2017-05-05 08:53] MED LIST changes: -ACETAMINOPHEN TAB 500 MG TAB PO ONE; +ALPRAZolam 0.25 MG TAB PO PRN; +ALPRAZolam 0.5 MG TAB PO PRN; +ASPIRIN 325 MG TAB PO STA; +ATORVASTATIN 80 MG TAB PO STA; -DEXAMETHASONE SOD PHOSPHATE 10 MG/ML 1 ML VIAL IV ONE; -HYDROmorphone 1 MG/ML 1 ML SYRINGE IVP PRN; -LACTATED RINGERS 1,000 ML IV SCH; -MELOXICAM 7.5 MG TAB PO ONE; -MIDAZOLAM 2 MG/2 ML VIAL IV PRN; +NITROGLYCERIN SL TABS 0.4 MG TAB SUBLINGUAL PRN; -ONDANSETRON 4 MG/2 ML VIAL IVP ONE; +SODIUM CHLORIDE 0.9% 1,000 ML in EMPTY BAG 1 BAG IV ONE; -TRANEXAMIC ACID 1,000 MG in SODIUM CHLORIDE 0.9% 100 ML IVPB ONE; -ceFAZolin 2 GM in SODIUM CHLORIDE 0.9% 100 ML IVPB ONE
[2017-05-05] MEDS ORDERED: ASPIRIN 81 MG ONE (09:13)
[2017-05-05] MEDS ORDERED: LIDOCAINE 2% INJ 20 MG/ML (20 ML MDV) ONE (12:35)
[2017-05-05] MEDS ORDERED: diphenhydrAMINE 50 MG/ML 1 ML VIAL ONE (12:35)
[2017-05-05] MEDS ORDERED: MIDAZOLAM 2 MG/2 ML VIAL ONE (12:41)
[2017-05-05] MEDS ORDERED: fentaNYL (PF) 50 MCG/ML 2 ML AMP ONE (12:41)
[2017-05-05] MEDS ORDERED: diphenhydrAMINE 50 MG/ML 1 ML VIAL IVP ONE (12:45)
[2017-05-05] MEDS ORDERED: MIDAZOLAM 2 MG/2 ML VIAL IV ONE (12:46)
[2017-05-05] MEDS: fentaNYL (PF) 50 MCG/ML 2 ML AMP IV ONE ×2 (12:46→13:19)
[2017-05-05] MEDS ORDERED: LIDOCAINE 2% INJ 20 MG/ML SQ ONE (12:52)
[2017-05-05] MEDS ORDERED: BIVALIRUDIN BOLUS 250 MG/50 ML IV ONE (13:18)
[2017-05-05] MEDS ORDERED: BIVALIRUDIN 250 MG in SODIUM CHLORIDE 0.9% 50 ML IV ONE (13:19)
[2017-05-05] MEDS: NITROGLYCERIN 1000MCG/10ML SYRINGE INTRACORON ONE ×2 (13:38→13:43)
[2017-05-05] MEDS ORDERED: NITROGLYCERIN SL TABS 0.4 MG TAB SUBLINGUAL PRN (13:50)
[2017-05-05] MEDS ORDERED: IOHEXOL 350 MG/ML 125ML BOTTLE INJ ONE (13:50)
[2017-05-05] MEDS ORDERED: SODIUM CHLORIDE 0.9% 1,000 ML IV SCH (14:00)
[2017-05-05] MEDS ORDERED: HYDROcodone/APAP 10-325MG 1 EACH TAB PO PRN (14:32)
[2017-05-05] MEDS: HYDROcodone/APAP 10-325MG 1 EACH TAB PO PRN ×3 (14:38→22:34)
[2017-05-05 15:38] VITALS: BMI 66.4
[2017-05-05] MEDS ORDERED: ATROPINE SULFATE 0.1 MG/ML 10ML SYRINGE ONE (16:20)
[2017-05-05] MEDS: GABAPENTIN 300 MG CAP PO SCH ×2 (16:59→20:46)
[2017-05-05] MEDS: ISOSORBIDE MONONITRATE ER 60 MG TAB.ER.24H PO SCH (20:46)
[2017-05-05] MEDS: RANOLAZINE 500 MG TAB.ER.12H PO SCH (20:46)
[2017-05-05] MEDS: METOPROLOL TARTRATE 50 MG TAB PO SCH (20:46)
[2017-05-05] MEDS: TICAGRELOR 90 MG TAB PO SCH (20:46)
[2017-05-05] MEDS ORDERED: ATORVASTATIN 80 MG TAB PO SCH (21:00)
[2017-05-05] MEDS ORDERED: amLODIPine 5 MG TAB PO SCH (21:00)
[2017-05-05] MEDS ORDERED: FOLIC ACID 1 MG TAB PO SCH (21:00)
[2017-05-06] MEDS: HYDROcodone/APAP 10-325MG 1 EACH TAB PO PRN (04:56)
[2017-05-06 06:29] LABS: Basophils % (A) 1 %; CH 31.9; Eosinophils # (A) 0.1 k/uL (0-0.7); Eosinophils % (A) 3 %; HCT 37.3 % (39.0-53.0); HDW 3.24; HGB 12.7 gm/dL (13.0-17.5); Luc # (Auto) 0.14; Luc % (Auto) 3; Lymphocytes # (A) 1.1 k/uL (1.0-4.8); Lymphocytes % (A) 23 %; MCH 32.1 pg (25.0-35.0); MCHC 34.1 g/dL (31.0-37.0); MCV 94.4 fL (80.0-100.0); Mean Platelet Volume 7.1; Monocytes # (A) 0.5 k/uL (0-1.0); Monocytes % (A) 10 %; Neutrophils # (A) 2.9 k/uL (1.3-7.7); Neutrophils % (A) 61 %; RBC 3.95 m/uL (4.30-5.90); RDW 15.6 % (11.5-15.5); WBC 4.7 k/uL (3.8-10.6)
[2017-05-06 06:33] LABS: Anion Gap 9 mmol/L; Blood Urea Nitrogen 13 mg/dL (9-20); Calcium 9.1 mg/dL (8.4-10.2); Carbon Dioxide 22 mmol/L (22-30); Chloride 109 mmol/L (98-107); Glucose 82 mg/dL (74-99); Non-African American GFR(MDRD) >60 (>60 ml/min/1.73 sqM); Sodium 140 mmol/L (137-145)
[2017-05-06] MEDS ORDERED: LOSARTAN 50 MG TAB PO SCH (08:00)
[2017-05-06] MEDS: RANOLAZINE 500 MG TAB.ER.12H PO SCH (08:57)
[2017-05-06] MEDS: ISOSORBIDE MONONITRATE ER 60 MG TAB.ER.24H PO SCH (08:57)
[2017-05-06] MEDS: GABAPENTIN 300 MG CAP PO SCH (08:58)
[2017-05-06] MEDS: TICAGRELOR 90 MG TAB PO SCH (08:58)
[2017-05-06] MEDS: METOPROLOL TARTRATE 50 MG TAB PO SCH (08:58)
[2017-05-06] MEDS ORDERED: ASPIRIN 81 MG PO SCH (09:00)
[2017-05-06] MEDS ORDERED: HYDROCHLOROTHIAZIDE 12.5 MG CAP PO SCH (09:00)
[2017-05-06 09:03] VITALS: TEMP 97.6
--- NOTE | 2017-05-06 11:09 | PTCA ---
DATE OF SERVICE: 05/05/17 PERFORMING PHYSICIAN: Juan Carlos Morrison M.D., order processing clerk. PROCEDURE PERFORMED: Successful stenting of the proximal ramus intermedius coronary artery using 2.75 x 12 mm Promus Premier drug eluting stent with good angiographic results. INDICATIONS: This is a pleasant 62 -year-old gentleman who sees Dr. Bev York as an outpatient who is known to have CAD with prior coronary artery bypass grafting as well as stenting of the ramus intermedius was experiencing chest discomfort concerning for angina. He underwent heart catheterization by Dr. York and was found to have critical in stent restenosis of the ramus intermedius. APPROACH: Right common femoral. COMPLICATIONS: None. LEVEL OF SEDATION: Moderate. SEDATION LENGTH: 30 minutes. PROCEDURE DESCRIPTION: After diagnostic heart catheterization was performed by Dr. Bev York and after review of the angiogram, we decided to proceed with intervention of the ramus intermedius. Anticoagulation was initiated using Angio-Max. Subsequently, I did JL4 guide and left main was engaged. Whisper wire was used to wire the ramus intermedius. Subsequently, I did do balloon angioplasty initially using 2.5 mm semi-compliant balloon and then 2.5 Angio sculpt balloon. After that I did deploy 2.75 x 12 mm Promus Premier drug eluting stent where the stent was positioned under fluoroscopic guidance and deployed under 16 atmospheres for 20 seconds. The following angiogram showed good angiographic results. The procedure was completed without any complications. POSTPROCEDURE MANAGEMENT: 1. Dual antiplatelet therapy. 2. Risk factor medications. 3. Follow-up with the patient. ALLISON
[2017-05-06 12:24] VITALS: BP 94/54; PULSE 57; RESP 16
--- NOTE | 2017-05-06 15:40 | P.PN ---
Subjective Principal diagnosis: Discharge Note This is a 62-year-old gentleman with history of coronary artery bypass grafting surgery and prior stent placement, history of hypertension, hyperlipidemia, COPD, sleep apnea, non-Hodgkin's lymphoma, finished chemo in October of this year. He presented to Dr. York's office with symptoms of exertional shortness of breath, he was brought to the hospital on this occasion to undergo cardiac catheterization. Patient was found to have significant disease in the proximal ramus intermedius and underwent angioplasty with stenting of that vessel. Patient was seen and examined this morning, denies any chest pain or difficulty breathing. He had been up ambulating without any difficulty. EKG showed normal sinus rhythm with no changes from post-PCI. Objective - Vital Signs Vital signs: Vital Signs Temp 97.6 F 05/06/17 09:00 Pulse 57 L 05/06/17 12:23 Resp 16 05/06/17 12:23 BP 94/54 05/06/17 12:23 Pulse Ox 94 L 05/06/17 12:23 Intake & Output 05/05/17 05/06/17 05/06/17 18:59 06:59 18:59 Intake Total 1100 600 Output Total 450 Balance 650 600 Weight 181 kg 83.4 kg Intake: IV 1100 400 Sodium Chloride 0.9% 1, 550 400 000 ml @ 100 mls/hr IV . Q10H CLEMENTE Rx#:[id number] Oral 200 Output: Urine 450 Other: # Voids 1 1 2 - Exam PHYSICAL EXAMINATION: HEENT: Head is atraumatic, normocephalic. Pupils equal, round. Neck is supple. There is no elevated jugular venous pressure. HEART EXAMINATION: Heart S1, S2 normal. PMI normal. CHEST EXAMINATION: Lungs are clear to auscultation and precussion. No chest wall tenderness is noted on palpation or with deep breathing. ABDOMEN: Soft, nontender. Bowel sounds are heard. No organomegaly noted. Right groin soft, no evidence of any hematoma. EXTREMITIES: 2+ peripheral pulses with no evidence of peripheral edema and no calf tenderness noted. NEUROLOGIC patient is awake, alert and oriented -3. . - Labs CBC & Chem 7: 05/06/17 05:54 05/06/17 05:54 Labs: Abnormal Lab Results - Last 24 Hours (Table) 05/06/17 05/06/17 Range/Units 05:54 05:54 RBC 3.95 L (4.30-5.90) m/uL Hgb 12.7 L (13.0-17.5) gm/dL Hct 37.3 L (39.0-53.0) % RDW 15.6 H (11.5-15.5) % Chloride 109 H (98-107) mmol/L Assessment and Plan (1) Chest pain Status: Acute (2) Hx of CABG Status: Acute (3) Lymphoma Status: Acute (4) NSTEMI (non-ST elevated myocardial infarction) Status: Acute (5) Status post reverse arthroplasty of right shoulder Status: Acute (6) CAD (coronary artery disease) Status: Chronic (7) HTN (hypertension) Status: Chronic (8) Hyperlipemia Status: Chronic Plan: Patient underwent successful stenting of the proximal ramus intermedius coronary artery. He may be able to be discharged home today. We'll make follow -up appointment to see Dr. ELY In the office post discharge. Patient will be discharged home on Norvasc 5 mg daily, Ecotrin 81 mg daily, Lipitor 80 mg daily , folic acid 1 mg daily, Neurontin 300 mg by mouth 3 times a day, Hytrin diarrheal 12.5 mg daily, Imdur 120 twice a day, Cozaar 50 mg daily, Lopressor 50 mg by mouth twice a day, Ranexa 1000 mg twice a day, Brilinta 90 mg one tablet by mouth twice a day and sublingual nitroglycerin as needed for chest pain., Sublingual nitroglycerin as needed for chest pain.
--- NOTE | 2017-07-01 20:03 | CC ---
CARDIAC CATHETERIZATION REPORT HISTORY: Mr. Batres is a 62-year-old gentleman who was seen in the office with recent onset of exertional chest discomfort and shortness of breath. In view of that, the patient was advised cardiac catheterization to rule out any significant progression of coronary artery disease. PROCEDURE: The right groin was prepped and draped in the usual manner and the skin was infiltrated with Xylocaine. The right femoral artery was entered using Seldinger technique. A 6- Sudanese sheath was placed in. Selective coronary angiography was then performed in multiple projections. Selective injection into the graft to the diagonal branch as well as LEE graft was made. Selective injection of the free radial graft was not done. SELECTIVE CORONARY ANGIOGRAPHY: The left main coronary artery is normal and patent. LAD is totally occluded in its proximal portion. There is a good size intermediate branch which has got in-stent restenosis of about 90%. Proximal circumflex coronary artery has a 70% stenosis and subsequently it is occluded. There is slow filling of the distal obtuse marginal branch noted. Right coronary artery is totally occluded. The saphenous vein graft to the diagonal branch is patent. There is some distal stenosis at the site of the anastomosis. The LEE graft to the LAD is patent. The saphenous vein graft to the right coronary artery and obtuse marginal branch were occluded before. RECOMMENDATIONS: The films were reviewed with Dr. Morrison and we will proceed with a stent to the intermediate coronary artery. The patient's overall long-term prognosis is guarded in view of the multiple stenting. MMODL / IJN: [id number] /
== END 2017-05-06 14:16 | disposition home or self-care (01) ==
LOC: CATHCVL 08:53 → 6SEL 14:55 → CATHCVL 05-06 14:16
PROVIDERS: ATTEND Internal Medicine Cardiovascular Disease
DX: I25.119 Atherosclerotic heart disease of native coronary artery with unspecified angina pectoris (principal); I25.82 Chronic total occlusion of coronary artery; T82.855A Stenosis of coronary artery stent, initial encounter; I10 Essential (primary) hypertension; Z95.1 Presence of aortocoronary bypass graft; Z87.891 Personal history of nicotine dependence; Z95.5 Presence of coronary angioplasty implant and graft; I25.2 Old myocardial infarction; Z82.49 Family history of ischemic heart disease and other diseases of the circulatory system; C85.90 Non-Hodgkin lymphoma, unspecified, unspecified site; E78.5 Hyperlipidemia, unspecified; Z79.02 Long term (current) use of antithrombotics/antiplatelets; Z79.82 Long term (current) use of aspirin; Z79.899 Other long term (current) drug therapy
CPT/HCPCS: 99152; 99153 ×3; 93455; 80048; 85025; C9600; C1769 ×3; C1887; C1725 ×2; C1894; C1874; J2001; J2250; J1200; J3010; J0583; Q9967

== ENCOUNTER → 2017-06-14 | Outpatient (CLI) | payer MEDICARE, BC ==
--- NOTE | 2017-06-16 06:06 | PE ---
EXAMINATION TYPE: PET CT fusion skull to thigh DATE OF EXAM: 06/14/2017 COMPARISON: 12/14/2016 and priors. HISTORY: Lymphoma, follow-up examination. TECHNIQUE: Following the intravenous administration of 12.68 mCi of F-18 FDG, whole body images are performed from the skull base to the midthigh. Images are reviewed on the computer in the coronal, a xial, and sagittal planes. Reconstructed rotating images are created on independent workstation and reviewed on the computer. A localization and attenuation correction CT is performed in conjunction with the PET scan. FINDINGS: NECK AND CHEST: No evidence of adenopathy within the neck or chest. Again three-vessel dense coronar y artery calcifications are present. Mild atheromatous changes are seen of the thoracic aorta. Heart is mildly enlarged. Bibasilar subsegmental atelectasis is seen. Midline sternotomy wires are present. No discrete pulmonary nodule or mass is identified. Tracheobronchial tree is patent. No suspicious hypermetabolic uptake is seen within the chest. MEDIASTINUM, AND HILAR REGION: No adenopathy present. Mediastinal background measures 1.77 max SUV. ABDOMEN AND PELVIS: The liver background measures 2.05 maximum SUV.No suspicious hypermetabolic activ ity is present within the abdomen and pelvis. Specifically no hypermetabolic activity is present with in the spleen or liver, as there is multifocal uptake in the original examination. OSSEOUS STRUCTURES: No suspicious hypermetabolic uptake is present within the osseous structures. Spe cifically no hypermetabolic uptake is present within the spine or pelvic bones were multifocal uptake was seen in the original examination. OTHER CT: Bilateral severe carotid bulb atheromatous changes are again noted. Right internal jugular Mediport has been removed. Cholecystectomy clips reside within the right upper quadrant. Numerous sigmoid diverticula are presen t without pericolonic fat stranding. Moderate calcific atheromatous changes are seen of the abdominal aorta and its branches. Ectasia is again noted at the inferior abdominal aorta measuring 2.3 x 2.6 c m. Mild degenerative changes of the thoracolumbar and lumbosacral spine. Spleen is again normal in si ze. Urinary bladder has circumferentially thickened lee although it is nondistended. Osseous gland is mildly enlarged and heterogenous no central gland calcifications. Right humeral arthroplasty creat es spray artifact. Compression deformity is seen of the T9 vertebral body, unchanged from the prior e xam. IMPRESSION: No suspicious hypermetabolic uptake to suggest lymphoma recurrence. EORTC response criteria: Complete Metabolic Response. MaxSUV < 2.5 or equivalent to background. Primary tumor response WHO category: CR - No radiologically detectable residual tumor.
== END | disposition home or self-care (01) ==
LOC: RADPETMAIN 07:21
PROVIDERS: ATTEND Internal Medicine Hematology & Oncology
DX: C85.19 Unspecified B-cell lymphoma, extranodal and solid organ sites (principal)
CPT/HCPCS: 78815; A9552

== ENCOUNTER 2017-09-17 11:25 | Day surgery (SDC) | payer MEDICARE, BC ==
[2017-09-16 08:35] VITALS: BMI 29.1
[~2017-09-17 11:25] MED LIST changes: -ALPRAZolam 0.25 MG TAB PO PRN; -ALPRAZolam 0.5 MG TAB PO PRN; -ASPIRIN 325 MG TAB PO STA; -ATORVASTATIN 80 MG TAB PO STA; +LACTATED RINGERS 1,000 ML IV SCH; +LIDOCAINE 1% 20 ML VIAL (10MG/ML) FOR IV START INTRADERMA PRN; -NITROGLYCERIN SL TABS 0.4 MG TAB SUBLINGUAL PRN; -SODIUM CHLORIDE 0.9% 1,000 ML in EMPTY BAG 1 BAG IV ONE
[2017-09-17 12:12] VITALS: RESP 16; TEMP 96.7
[2017-09-17] MEDS ORDERED: PROPOFOL 10 MG/ML 20 ML VIAL IV ONE (12:41)
[2017-09-17] MEDS ORDERED: LIDOCAINE 1% INJ 10MG/ML (20 ML MDV) ONE (12:41)
--- NOTE | 2017-09-17 13:05 | P.PCN ---
Date of Procedure: 09/17/17 Procedure(s) Performed: BRIEF HISTORY: Patient is a 62-year-old, pleasant, white male, scheduled for an upper endoscopy as a part of evaluation of dysphagia and odynophagia for the last 2 weeks' duration. He feels that he had a pill that was stuck in his esophagus for a couple of days which happened 2 weeks ago and since then he is been having odynophagia. He never had these symptoms in the past. However for the last 1 week history has some odynophagia but the dysphagia has resolved. His and scheduled for an upper endoscopy with possible dilation today. PROCEDURE PERFORMED: Esophagogastroduodenoscopy with foreign body removal. PREOPERATIVE DIAGNOSIS: Dysphagia and odynophagia of 2 weeks duration. IV sedation per anesthesia. PROCEDURE: After informed consent was obtained, the patient was brought into the endoscopy unit. IV sedation was administered by Anesthesia under continuous monitoring. Initially the Olympus GIF-140 video endoscope was inserted into the mouth. Esophagus intubated without any difficulty. It was gradually advanced into the distal esophagus and at 35 cm from the incisors there was a very as well as foreign body impacted. Initially I tried to remove this using the Estevez net with no success. Subsequently I used a tripod and then a rat-tooth forceps and gently was withdrawn along with the scope. It was a Of the water bottle was impacted in the distal esophagus. Repeat EGD was performed. It was advanced into the distal esophagus and at 35 cm from the incisors there were 2 deep ulcerations on opposite lee at the site of foreign body impaction. The rest of the distal esophagus appeared normal. The scope was then advanced into stomach and duodenum and carefully examined. The bulb and the second part of the duodenum appeared normal. The scope at this time was withdrawn to the stomach, adequately insufflated with air, and upon careful examination, mucosa of the antrum, body, cardia and the fundus appeared normal. The scope was then withdrawn into the esophagus. The GE junction was located at 39 cm from the incisors. Once again the ulcerations were noticed in the distal esophagus. No active bleeding noted. Rest of the esophagus appeared normal and the patient tolerated the procedure well. IMPRESSION: 1. Foreign body impaction in the distal esophagus which was removed as described above. 2. 2 deep ulcerations in the distal esophagus at the site of foreign body impaction.. RECOMMENDATIONS: The findings of this examination were discussed with the patient as well as his family. He was advised to remain on a clear liquid diet for 2 days. He will be started on Prilosec 20 mg twice daily. At any time if he has any pain he was advised to return to the emergency room immediately. He was recommended to be on a soft diet for 2 weeks..
[2017-09-17 13:43] VITALS: BP 115/69; PULSE 58
== END 2017-09-17 14:14 | disposition home or self-care (01) ==
LOC: ORWHC2ENDO 11:25
PROVIDERS: ATTEND Internal Medicine Gastroenterology
DX: T18.198A Other foreign object in esophagus causing other injury, initial encounter (principal); K22.10 Ulcer of esophagus without bleeding; I25.10 Atherosclerotic heart disease of native coronary artery without angina pectoris; I10 Essential (primary) hypertension; I25.2 Old myocardial infarction; E78.5 Hyperlipidemia, unspecified; J44.9 Chronic obstructive pulmonary disease, unspecified; G47.33 Obstructive sleep apnea (adult) (pediatric); Z79.02 Long term (current) use of antithrombotics/antiplatelets; Z79.82 Long term (current) use of aspirin; Z79.899 Other long term (current) drug therapy; Z91.09 Other allergy status, other than to drugs and biological substances
CPT/HCPCS: 43247; J2001; J2704; 44799

== ENCOUNTER → 2017-12-04 | Outpatient (CLI) | payer MEDICARE, BC ==
--- NOTE | 2017-12-04 14:32 | CONS ---
CONSULTATION DATE OF SERVICE: 12/04/2017 62-year-old gentleman has been evaluated in [facility] for obstructive sleep apnea- hypopnea syndrome. HISTORY OF PRESENT ILLNESS/SLEEP WAKE EVALUATION: The patient has been diagnosed with obstructive sleep apnea in 2010. I reviewed results of previous sleep studies. Obstructive sleep apnea was in moderate range with apnea- hypopnea index of 19.7. At that time, recommended treatment with CPAP with a pressure 8 cm of water. The patient used CPAP equipment for several years, but about 4 to 5 years ago he quit treatment, did not feel comfortable with the CPAP. He also lost weight for more than 40 pounds since previous sleep study. At the present time, his sleep schedule from around 10:00 p.m. to 1:00 a.m. to 7:00 or 9:00 a.m. He does have problem with falling asleep. Has TV set in bedroom. He sleeps in different position with snoring awakenings from sleep with a dry mouth and nocturia up to 3 times. No history of hypnagogic hallucinations, sleep paralysis or cataplexy. Clanton Sleepiness Scale significantly increased to 12. He wakes up tired, has difficulties to pay attention, memory and concentration during the day. PAST MEDICAL HISTORY: Positive for non-Hodgkin's lymphoma diagnosed about 3 years ago, underwent chemotherapy at that time. Heart attack 3 years ago. Hypertension, hyperlipidemia, some narrowing of carotid arteries recently. PAST SURGICAL HISTORY: Total right knee replacement 2013. Right eye cataract surgery. Hernia repair, right knee ligament surgery in 2011. MEDICATIONS: Metoprolol, Brilinta, Ranexa, Crestor, losartan, isosorbide, amlodipine, gabapentin, hydrochlorothiazide, nitroglycerin, [place]. SOCIAL HISTORY: Positive for smoking in the past, quit 27 years ago. Alcohol consumption 1 glass of wine with dinner daily. REVIEW OF SYSTEMS: Multiple awakenings from sleep, sleepiness during the day. Mild snoring. FAMILY HISTORY: Hypertension, angina, heart problems, hyperlipidemia, arthritis, sleep apnea, snoring, cancer, bronchitis. PHYSICAL EXAM: GENERAL A 62-year-old, gentleman without distress. VITAL SIGNS BP 113/59, HR 64, RR 16, height 5 feet 5-1/2, weight 189, BMI 33. Neck 15- 1/4 inch circumference. Temperature 97.2, oxygen saturation room air 95%. HEENT PERRLA, EOMI, evaluation of oropharynx showed moderately low position of soft palate. NECK Supple, no JVD. Thyroid is not palpable. LUNGS Clear to percussion and to auscultation. Good air exchange. No wheezing or rhonchi. HEART S1, S2 regular. Systolic murmur more on aorta and pulmonary arteries. ABDOMEN Obese. Soft and nontender. Bowel sounds are present. No organomegaly appreciated. EXTREMITIES No clubbing or cyanosis. DIRECTOR TRANSLATION Awake, alert, and oriented X3. Cranial nerves 2 to 7 intact. There is no fasciculation or atrophy. noted. No focal deficits observed. IMPRESSION: 1. Snoring, multiple awakenings from sleep, moderately low position of soft palate, history of obstructive sleep apnea diagnosed 8 years ago, sleepiness. Clanton Sleepiness Scale increased to 12. Obstructive sleep apnea-hypopnea syndrome. 2. Obesity, BMI 33. 3. History of non-Hodgkin lymphoma diagnosed 3 years ago, status post chemotherapy. 4. History of coronary artery disease, status post myocardial infarction 3 years ago. 5. Hypertension. 6. Hyperlipidemia. 7. Status post hernia repair. 8. Status post right knee surgery in 2011. 9. Status post right knee total replacement 2013. 10.History of narrowing of the carotid arteries with 90% block on the right side and 60% block on the left side. The patient is preparing for surgical correction. PLAN: 1. Polysomnography for evaluation of patient's breathing during sleep. 2. CPAP/BiPAP titration if sleep study confirms obstructive sleep apnea-hypopnea syndrome. 3. Preferable position during sleep on the side. 4. No driving if patient feels any sleepiness. Patient is aware of civil and criminal liability for unsafe driving. 5. I will see patient for follow up visit to explain results of testing and following plan. Thank you very much for allowing me to participate in management of your patient. Sincerely, Jairo Galdamez MD, PhD, FAASM Diplomat of [place] [employer] [place] [employer] [facility] [place] MMODL / KAELAN: [id number] /
== END | disposition home or self-care (01) ==
LOC: SLEEP 13:06
PROVIDERS: ATTEND Internal Medicine
DX: G47.33 Obstructive sleep apnea (adult) (pediatric) (principal); I10 Essential (primary) hypertension; E78.5 Hyperlipidemia, unspecified; I25.2 Old myocardial infarction; F10.20 Alcohol dependence, uncomplicated; I25.10 Atherosclerotic heart disease of native coronary artery without angina pectoris; E66.9 Obesity, unspecified; Z96.651 Presence of right artificial knee joint; Z98.890 Other specified postprocedural states; Z79.891 Long term (current) use of opiate analgesic; Z79.899 Other long term (current) drug therapy; Z87.891 Personal history of nicotine dependence; Z68.33 Body mass index [BMI] 33.0-33.9, adult; Z85.72 Personal history of non-Hodgkin lymphomas; Z92.21 Personal history of antineoplastic chemotherapy; Z86.79 Personal history of other diseases of the circulatory system; Z99.89 Dependence on other enabling machines and devices
CPT/HCPCS: 99211

== ENCOUNTER → 2017-12-27 | Outpatient (CLI) | payer MEDICARE, BC ==
--- NOTE | 2017-12-28 13:21 | PE ---
EXAMINATION TYPE: PET CT fusion skull to thigh DATE OF EXAM: 12/27/2017 CLINICAL HISTORY: 62 year-old male restaging lymphoma. Patient with liver biopsy in April 2015. Last chemotherapy in October 2015. TECHNIQUE: Following the intravenous administration of 12.3 mCi of F-18 FDG, whole body images are performed from the skull base to the midthigh. Images are reviewed on the computer in the coronal, a xial, and sagittal planes. Reconstructed rotating images are created on independent workstation and reviewed on the computer. A localization and attenuation correction CT is performed in conjunction with the PET scan. Glucose level: 87 mg/dL CTDI: 5.27 mGy DLP: 468.95 mGy-cm COMPARISON: 09/10/2017, 06/14/2017. FINDINGS: PET: Some physiologic pharyngeal and vocal fold uptake is present. Physiologic FDG uptake within the chest. Average liver SUV 2.0. There is a focus of borderline moderate FDG uptake along the mesentery of the proximal sigmoid colon that shows no discrete CT abnormality. Uptake here is new and of unclear etiology, max SUV 3.0. A prominent but nonenlarged left external iliac chain lymph node measures 6 mm and shows no FDG uptak e and is unchanged. Somewhat linear distribution of mild uptake involving the right piriformis suggestive of muscular act ivity, max SUV 2.6. Moderate uptake at the gluteal insertions, max SUV 3.9 suggests gluteal insertion al tendinosis or trochanteric bursitis. Compression deformity of T9 was present previously. No discrete FDG uptake here. Findings compatible with remote compression injury. Reverse right total shoulder arthroplasty demonstrated. Variable mild uptake here was present previo usly and could be reactive and may in part represent attenuation artifacts. ATTENUATION CORRECTION CT: Visualized paranasal sinuses and mastoid air cells are clear. No cervical lymphadenopathy. Extensive coronary bifurcation calcifications redemonstrated as further detailed on the neck CT of 09/10/2017. Median sternotomy wires are present with post-CABG clips in the mediastinum. Heart is upper limits of normal in size without pericardial effusion. Aorta is normal caliber with conventional arch vessel b ranching anatomy and mild atherosclerotic calcifications. No thoracic lymphadenopathy evaluation of t he lung shows hazy areas of atelectasis posteriorly in the lungs. No consolidation or pleural effusio n. Cholecystectomy clips. No dilated small bowel, free fluid, or free air. Moderate atherosclerotic calc ifications within the abdominal aorta and iliac arteries. Scattered mild stool. No pericolonic inflam matory change. Circumferential bladder wall thickening may be secondary to nondistention. Prostate gland prominent a t 4.5 cm wide with central calcifications. No abnormal fluid collection in pelvis. Bones: Degenerative spurring at the SI joints. Degenerative changes mid to lower lumbar spine. Scatte red endplate spondylosis within the thoracic spine. Cervical spondylosis. IMPRESSION: 1. A new focus of borderline moderate hypermetabolism along the mesentery of the proximal sigmoid nena ws no CT correlate. This is nonspecific and could represent a small area of inflammation (max SUV 3.0 ). Attention on follow-up to exclude early neoplastic recurrence here. 2. Otherwise, no additional findings to suggest recurrent disease. 3. Correlate for gluteal insertional tendinosis or trochanteric bursitis.
== END | disposition home or self-care (01) ==
LOC: RADPETMAIN 07:30
PROVIDERS: ATTEND Internal Medicine Hematology & Oncology
DX: C85.19 Unspecified B-cell lymphoma, extranodal and solid organ sites (principal)
CPT/HCPCS: 78815; A9552

== ENCOUNTER 2018-01-14 11:02 | Day surgery (SDC) | payer MEDICARE, BC ==
[~2018-01-14 11:02] MED LIST changes: +ALPRAZolam 0.25 MG TAB PO PRN; +ALPRAZolam 0.5 MG TAB PO PRN; +ASPIRIN 325 MG TAB PO STA; -LACTATED RINGERS 1,000 ML IV SCH; -LIDOCAINE 1% 20 ML VIAL (10MG/ML) FOR IV START INTRADERMA PRN; +NITROGLYCERIN SL TABS 0.4 MG TAB SUBLINGUAL PRN; +SODIUM CHLORIDE 0.9% 1,000 ML in EMPTY BAG 1 BAG IV ONE
[2018-01-14] MEDS ORDERED: ASPIRIN 81 MG ONE (11:12)
[2018-01-14] MEDS ORDERED: diphenhydrAMINE 50 MG/ML 1 ML VIAL ONE (12:23)
[2018-01-14] MEDS ORDERED: fentaNYL (PF) 50 MCG/ML 2 ML AMP ONE ×2 (12:23→13:50)
[2018-01-14] MEDS ORDERED: MIDAZOLAM 2 MG/2 ML VIAL ONE (12:27)
[2018-01-14] MEDS ORDERED: diphenhydrAMINE 50 MG/ML 1 ML VIAL IVP ONE (12:28)
[2018-01-14] MEDS ORDERED: fentaNYL (PF) 50 MCG/ML 2 ML AMP IVP ONE ×2 (12:28→16:55)
[2018-01-14] MEDS ORDERED: MIDAZOLAM 2 MG/2 ML VIAL IVP ONE ×2 (12:31→16:55)
[2018-01-14] MEDS ORDERED: LIDOCAINE 2% INJ 20 MG/ML SQ ONE (12:31)
[2018-01-14] MEDS ORDERED: IOPAMIDOL-370 125ML BTL INJ ONE ×2 (13:00→17:12)
--- NOTE | 2018-01-14 13:24 | CC ---
CARDIAC CATHETERIZATION REPORT Mr. Batres was seen in the office with new symptoms of exertional shortness of breath and back pain and shoulder pain suggestive of angina. In view of that, the patient was recommended to have a cardiac catheterization to rule out any significant re-stenosis. The right groin was prepped and draped in the usual manner and the skin was infiltrated with 2% Xylocaine. The right femoral artery was entered using Seldinger technique. A #6- Amharic sheath was placed in. Selective coronary angiography was then performed in multiple projections. Selective injection of the LEE graft was made and selective injection of the vein graft to the diagonal and OM was made with AR1 catheter. CORONARIES: The left main coronary artery is normal and patent. LAD is totally occluded in its proximal portion. There is a good size intermediate branch, which has got in-stent stenosis of 90%. The obtuse marginal branch has approximately 70% to 80% stenosis. Then it is totally occluded and the slow antegrade filling of the small obtuse marginal branch is noted. The LEE graft to the LAD is patent. The vein graft to the obtuse marginal branch is closed. The vein graft to the right coronary artery was closed. Right coronary artery is totally occluded. The saphenous vein graft to the diagonal branch is patent, but very sluggish flow is noted and there is very minimal filling of the small size diagonal branches noted. RECOMMENDATIONS: We will review the films with Dr. Morrison and consider possible stent placement to the intermediate branch. MMODL / IJN: [id number] /
[2018-01-14] MEDS ORDERED: fentaNYL (PF) 50 MCG/ML 2 ML AMP IVP STA (13:48)
[2018-01-14] MEDS ORDERED: HYDROcodone/APAP 10-325MG 1 EACH TAB ONE (13:49)
[2018-01-14] MEDS: SODIUM CHLORIDE 0.9% 1,000 ML IV SCH (16:33)
[2018-01-14] MEDS ORDERED: SODIUM CHLORIDE 0.9% 1,000 ML IV ONE (16:35)
[2018-01-14] MEDS ORDERED: BIVALIRUDIN BOLUS 250 MG/50 ML IV ONE (16:54)
[2018-01-14] MEDS ORDERED: BIVALIRUDIN 250 MG in SODIUM CHLORIDE 0.9% 50 ML IV ONE (16:55)
[2018-01-14] MEDS ORDERED: NITROGLYCERIN SL TABS 0.4 MG TAB SUBLINGUAL PRN ×2 (17:11→17:12)
[2018-01-14] MEDS ORDERED: ATROPINE SULFATE 0.1 MG/ML 10ML SYRINGE IV PRN (17:12)
[2018-01-14] MEDS ORDERED: RX INFO: IV CONTRAST WAS GIVEN 1 EACH MISC MISCELLANE PRN (17:12)
[2018-01-14] MEDS ORDERED: MAG HYDROX/AL HYDROX/SIMETH 30 ML CUP PO PRN (17:12)
[2018-01-14] MEDS ORDERED: ZOLPIDEM 5 MG TAB PO PRN (17:12)
[2018-01-14] MEDS ORDERED: SODIUM CHLORIDE 0.9% 1,000 ML IV SCH (17:15)
[2018-01-14] MEDS: HYDROcodone/APAP 10-325MG 1 EACH TAB PO PRN ×2 (18:09→21:57)
[2018-01-14] MEDS ORDERED: MORPHINE SULFATE 4MG/4ML SYRG IVP ONE (20:34)
[2018-01-14 20:45] VITALS: RESP 18
[2018-01-14] MEDS ORDERED: ATORVASTATIN 80 MG TAB PO SCH (21:00)
[2018-01-14] MEDS ORDERED: FOLIC ACID 1 MG TAB PO SCH (21:00)
[2018-01-14] MEDS: ISOSORBIDE MONONITRATE ER 60 MG TAB.ER.24H PO SCH (21:21)
[2018-01-14] MEDS: amLODIPine 5 MG TAB PO SCH (21:22)
[2018-01-14] MEDS: GABAPENTIN 300 MG CAP PO SCH (21:25)
[2018-01-14] MEDS: METOPROLOL TARTRATE 50 MG TAB PO SCH (21:25)
[2018-01-14] MEDS: TICAGRELOR 90 MG TAB PO SCH (21:25)
[2018-01-14] MEDS: RANOLAZINE 500 MG TAB.ER.12H PO SCH (21:25)
[2018-01-15] MEDS: SODIUM CHLORIDE 0.9% 1,000 ML IV SCH (00:32)
[2018-01-15] MEDS: HYDROcodone/APAP 10-325MG 1 EACH TAB PO PRN (07:05)
[2018-01-15 07:39] VITALS: BP 109/65; PULSE 53; TEMP 97
[2018-01-15] MEDS ORDERED: LOSARTAN 50 MG TAB PO SCH (08:00)
[2018-01-15] MEDS: amLODIPine 5 MG TAB PO SCH (08:32)
[2018-01-15] MEDS: ISOSORBIDE MONONITRATE ER 60 MG TAB.ER.24H PO SCH (08:32)
[2018-01-15] MEDS: GABAPENTIN 300 MG CAP PO SCH (08:32)
[2018-01-15] MEDS: TICAGRELOR 90 MG TAB PO SCH (08:33)
[2018-01-15] MEDS: METOPROLOL TARTRATE 50 MG TAB PO SCH (08:33)
[2018-01-15] MEDS: RANOLAZINE 500 MG TAB.ER.12H PO SCH (08:33)
--- NOTE | 2018-01-15 08:58 | PTCA ---
PERCUTANEOUSTRANS CORORONARY ANGIOGRAPHY Percutaneous coronary intervention report. DATE OF SERVICE: 01/14/2018 PERFORMING PHYSICIAN: Juan Carlos Morrison M.D., laser/electro optics technician. PROCEDURE PERFORMED: 1. Successful stenting of the ramus intermedius coronary artery using 2.75 x 12 mm Xience DARELL with good angiographic results. INDICATION: This is a pleasant 62-year-old gentleman who sees Dr. Jeovany York as an outpatient with a known history of coronary artery disease and prior stenting of the ramus intermedius who was experiencing intermittent episodes of chest discomfort concerning for angina. He did undergo a heart catheterization earlier today with Dr. York and he was found to have critical in-stent restenosis of the ramus intermedius. Because of that, a percutaneous coronary intervention was recommended. APPROACH: Right common femoral artery. COMPLICATION: None. LEVEL OF SEDATION: Moderate with sedation length of 23 minutes. PROCEDURE DESCRIPTION: After diagnostic heart catheterization was performed by Dr. Jeovany York and after reviewing the angiogram, we decided to pursue with intervention on the ramus intermedius and anticoagulation was initiated using Angiomax. Subsequently, I did engage the left main using JL4 guide catheter. After that, I did wire the ramus using a whisper wire balloon angioplasty initially using 2.5 x 12 mm noncompliant balloon where the balloon was inflated under 16 atmospheres for 20 seconds. Subsequently, I did advance 2.75 x 12 mm Xience DARELL where the stent was positioned under fluoroscopic guidance and deployed under 14 atmospheres for 20 seconds with the following angiogram showing good angiographic results without perforation and without dissection. Please note that I tried to advance an AngioSculpt balloon, but the balloon will not cross the lesion. The procedure was completed without any complication. POSTPROCEDURE MANAGEMENT: 1. Dual anti-platelet therapy. 2. Risk factors modifications. 3. Follow up with the patient. MMODL / IJN: [id number] /
[2018-01-15] MEDS ORDERED: ASPIRIN 81 MG PO SCH (09:00)
[2018-01-15] MEDS ORDERED: HYDROCHLOROTHIAZIDE 12.5 MG CAP PO SCH (09:00)
[2018-01-15 09:43] VITALS: BMI 30.9
--- NOTE | 2018-01-15 10:13 | PN ---
PROGRESS NOTE This patient underwent cardiac catheterization yesterday because of the recent symptoms of shortness of breath and a left scapular pain. The patient was found to have a high- grade restenosis in the stented segment of the intermediate coronary artery. The saphenous vein graft to diagonal branch had a very sluggish flow. The patient underwent a stent to intermediate artery. The results were good. He is doing well. Denies any chest pain. Denies any shortness of breath. The patient's vital signs are stable. Creatinine is normal. First and second heart sounds are normal. Lungs are clear to auscultation and percussion. Right groin is normal. The patient will be continued on the current medications. He is going to be admitted next week for further evaluation with arch study and possible carotid stent placement in view of the significant carotid artery stenosis. MMODL / IJN: [id number] /
== END 2018-01-15 10:55 | disposition home or self-care (01) ==
LOC: CATHCVL 11:02 → 6SEL 17:10 → CATHCVL 01-15 10:55
PROVIDERS: ATTEND Internal Medicine Cardiovascular Disease
DX: T82.855A Stenosis of coronary artery stent, initial encounter (principal); I25.10 Atherosclerotic heart disease of native coronary artery without angina pectoris; I25.810 Atherosclerosis of coronary artery bypass graft(s) without angina pectoris; I25.82 Chronic total occlusion of coronary artery; R00.1 Bradycardia, unspecified; Z95.5 Presence of coronary angioplasty implant and graft; Z95.1 Presence of aortocoronary bypass graft; I65.21 Occlusion and stenosis of right carotid artery; I10 Essential (primary) hypertension; E78.2 Mixed hyperlipidemia; I25.2 Old myocardial infarction; Z85.72 Personal history of non-Hodgkin lymphomas; Z82.49 Family history of ischemic heart disease and other diseases of the circulatory system; Z79.02 Long term (current) use of antithrombotics/antiplatelets; Z79.82 Long term (current) use of aspirin; Z79.899 Other long term (current) drug therapy; Z87.891 Personal history of nicotine dependence
CPT/HCPCS: 93455; 82565; C9600; C1760; C1769 ×2; C1887; C1725 ×2; C1894; C1874; J2001; J2250; J1200; J3010; J0583; Q9967; J2270

== ENCOUNTER → 2018-01-22 | Outpatient (CLI) | payer MEDICARE, BC ==
[2018-01-22 11:22] LABS: HGB 12.9 gm/dL (13.0-17.5); MCH 33.8 pg (25.0-35.0); MCHC 35.8 g/dL (31.0-37.0); MCV 94.4 fL (80.0-100.0); Mean Platelet Volume 7.8; Platelet Count 164 k/uL (150-450); RBC 3.81 m/uL (4.30-5.90); WBC 4.5 k/uL (3.8-10.6)
[2018-01-22 11:29] LABS: Anion Gap 13 mmol/L; Blood Urea Nitrogen 17 mg/dL (9-20); Carbon Dioxide 25 mmol/L (22-30); Chloride 105 mmol/L (98-107); Potassium 4.4 mmol/L (3.5-5.1); Sodium 143 mmol/L (137-145)
== END | disposition home or self-care (01) ==
LOC: LABPAT 10:54
PROVIDERS: ATTEND Internal Medicine Interventional Cardiology
DX: Z01.812 Encounter for preprocedural laboratory examination (principal); I77.9 Disorder of arteries and arterioles, unspecified
CPT/HCPCS: 36415; 80051; 82565; 84520; 85027

== ENCOUNTER 2018-01-27 12:00 | Inpatient (IN) | payer MEDICARE, BC ==
[2018-01-21 16:51] VITALS: BMI 30.2
[~2018-01-27 12:00] MED LIST changes: +CLOPIDOGREL 75 MG TAB PO STA
[2018-01-28] MEDS ORDERED: ASPIRIN 81 MG ONE (10:16)
[2018-01-28 10:36] VITALS: RESP 18
[2018-01-28] MEDS ORDERED: LIDOCAINE 2% INJ 20 MG/ML SQ ONE (11:55)
[2018-01-28] MEDS ORDERED: HEPARIN SODIUM 1,000 UN/ML (10ML VL) IV ONE (12:05)
[2018-01-28] MEDS ORDERED: fentaNYL (PF) 50 MCG/ML 2 ML AMP IVP ONE (12:33)
[2018-01-28] MEDS ORDERED: IOPAMIDOL-370 100ML BTL INJ ONE (12:34)
[2018-01-28] MEDS ORDERED: IOPAMIDOL-370 125ML BTL INJ ONE (12:38)
[2018-01-28] MEDS ORDERED: RX INFO: IV CONTRAST WAS GIVEN 1 EACH MISC MISCELLANE PRN (12:59)
[2018-01-28] MEDS ORDERED: SODIUM CHLORIDE 0.9% 1,000 ML IV SCH (13:00)
--- NOTE | 2018-01-28 13:21 | IR ---
EXAMINATION TYPE: IR angio aortic arch DATE OF EXAM: 01/28/2018 COMPARISON: NONE HISTORY: Peripheral vascular occlusive disease. Fluoroscopy was provided to the referring clinician. See dictated report from cardiology.
--- NOTE | 2018-01-28 13:48 | CC ---
CARDIAC CATHETERIZATION REPORT DATE OF SERVICE: January 28, 2018 PERFORMING PHYSICIAN: Juan Carlos Morrison M.D. PROCEDURE PERFORMED: Left coronary angiogram. INDICATION: This is a pleasant 62-year-old gentleman with known history of coronary artery disease and prior stenting of the ramus intermedius multiple times in the past, who was experiencing chest discomfort. He was brought today as a matter of fact to undergo an aortic arch and carotid angiogram, but he was experiencing chest discomfort and I performed a coronary angiogram to assess the patency of the stent in the ramus intermedius. APPROACH: Right common femoral artery. COMPLICATION: None LEVEL OF SEDATION: Moderate, sedation length of 10 minutes. PROCEDURE DESCRIPTION: Please refer to the access description from the carotid angiogram was performed earlier today. After the carotid angiogram was performed, I did selective left coronary angiogram using the JL4 catheter. The procedure was completed without any complication. SELECTIVE CORONARY ANGIOGRAM: 1. The left main appeared to have mild disease only. It bifurcates into left circumflex as well as ramus intermedius. The LAD is occluded. 2. The left circumflex is a moderate caliber vessel with mild disease only. 3. The ramus intermedius is stented and the stent is patent. CONCLUSION: Patent stent in the proximal ramus intermedius coronary artery. POSTPROCEDURE MANAGEMENT: Medical treatment and follow up with the patient. MMODL / IJN: [id number] /
--- NOTE | 2018-01-28 13:48 | LTR ---
DATE OF SERVICE: January 28, [address] Grande: Mr. Evin Batres underwent today a carotid angiogram, as well as a heart catheterization. The carotid angiogram revealed intermediate disease involving the right internal carotid artery does not seems to be flow-limiting. Maximize medical treatment is recommended at this point of time. Regarding the heart catheterization, it did show patent stent in the ramus intermedius coronary artery. Also, maximize medical treatment is recommended and no need for any revascularization. Thank you for allowing us to participate in his care and please do not hesitate to call if you have any questions or concerns. Sincerely, MMODL / IJN: [id number] /
--- NOTE | 2018-01-28 14:05 | AN ---
ANGIOGRAPHY REPORT AORTIC ARCH AND CAROTIC ANGIOGRAM: DATE OF SERVICE: 01/28/2018 PERFORMING PHYSICIAN: Juan Carlos Morrison MD, Pickler Helper. PROCEDURE PERFORMED: 1. An aortic arch angiogram. 2. Selective bilateral carotid artery angiogram. 3. Intracranial angiogram. INDICATION: This is a pleasant 62-year-old gentleman who sees Dr. Bev York as an outpatient, who was found to have severe right carotid disease by CTA. He was brought today to undergo carotid angiogram with possible right carotid stenting. APPROACH: Right common femoral artery. COMPLICATION: None. LEVEL OF SEDATION: Moderate with sedation length of 35 minutes. PROCEDURE DESCRIPTION: After obtaining an informed consent, the patient was brought to the Cardiac [facility]. The right common femoral artery was cannulated using micropuncture technique, the micropuncture wire passed easily, then I placed a 6-Moroccan sheath in the right common femoral artery. I did after that do an aortic arch angiogram using 5-Moroccan pigtail catheter. Subsequently, I did selective right and left carotid angiogram. Right carotid angiogram selectively was performed using JB2 catheter and left carotid angiogram was performed using JR4 catheter. After that, I did also intracranial angiogram through injection with the right and left carotid artery. The procedure was completed without any complication. AORTIC ARCH ANGIOGRAM: The aortic arch angiogram was performed in the [place] projection and using a power injection. The aortic arch is angiographically normal. It is a type 1 arch and also it is a true bovine arch. SELECTIVE RIGHT AND LEFT CAROTID ANGIOGRAM: 1. THE RIGHT CAROTID SYSTEM: The right common carotid artery appeared to be angiographically normal. The takeoff of the right internal carotid artery appeared to have a lesion in the range of 60%. The right external carotid artery was not opacified. 2. THE LEFT CAROTID SYSTEM: The left common carotid artery appeared to be angiographically normal. The left internal carotid artery has mild disease only and the left external carotid artery appeared to have mild disease only. 3. INTRACRANIAL ANGIOGRAM: The intracranial angiogram was performed in the AP projection and through injection from the right and left common carotid. Both the anterior cerebral artery and middle cerebral arteries are open bilaterally. CONCLUSION: 1. A type 1 arch and also true bovine arch. 2. Intermediate disease involving the right internal carotid artery appeared to be in the range of 60% only. 3. Mild disease involving the left internal carotid artery. POSTPROCEDURE MANAGEMENT: 1. Surveillance followup with Doppler. 2. Maximize medical treatment. 3. Follow up with the patient. MMABDIL / IJN: [id number] /
[2018-01-28] MEDS: HYDROcodone/APAP 10-325MG 1 EACH TAB PO PRN ×2 (14:42→17:57)
[2018-01-28 14:54] VITALS: TEMP 98
[2018-01-28] MEDS ORDERED: SODIUM CHLORIDE 0.9% 250 ML IV ONE (17:00)
[2018-01-28 19:35] VITALS: BP 102/56; PULSE 60
== END 2018-01-28 14:28 | disposition home or self-care (01) | DRG 287 ==
LOC: EDSTATUS 12:00 → 2ORMAIN 01-28 09:58
PROVIDERS: ADMIT Internal Medicine Interventional Cardiology; ATTEND Internal Medicine Interventional Cardiology
PROC: B315YZZ Fluoroscopy of Bilateral Common Carotid Arteries using Other Contrast (ICD-10-PCS; 2018-01-28)
PROC: B318YZZ Fluoroscopy of Bilateral Internal Carotid Arteries using Other Contrast (ICD-10-PCS; 2018-01-28)
PROC: B31CYZZ Fluoroscopy of Bilateral External Carotid Arteries using Other Contrast (ICD-10-PCS; 2018-01-28)
PROC: B410YZZ Fluoroscopy of Abdominal Aorta using Other Contrast (ICD-10-PCS; 2018-01-28)
PROC: 4A023N7 Measurement of Cardiac Sampling and Pressure, Left Heart, Percutaneous Approach (ICD-10-PCS; principal; 2018-01-28 11:00)
PROC: B211YZZ Fluoroscopy of Multiple Coronary Arteries using Other Contrast (ICD-10-PCS; 2018-01-28 11:00)
DX: I25.10 Atherosclerotic heart disease of native coronary artery without angina pectoris (principal); I25.82 Chronic total occlusion of coronary artery; I65.21 Occlusion and stenosis of right carotid artery; I10 Essential (primary) hypertension; E78.2 Mixed hyperlipidemia; R40.2363 Coma scale, best motor response, obeys commands, at hospital admission; R40.2143 Coma scale, eyes open, spontaneous, at hospital admission; R40.2253 Coma scale, best verbal response, oriented, at hospital admission; I25.2 Old myocardial infarction; Z79.01 Long term (current) use of anticoagulants; Z79.82 Long term (current) use of aspirin; Z79.899 Other long term (current) drug therapy; Z95.1 Presence of aortocoronary bypass graft; Z95.5 Presence of coronary angioplasty implant and graft; Z85.72 Personal history of non-Hodgkin lymphomas; Z87.891 Personal history of nicotine dependence; Z90.49 Acquired absence of other specified parts of digestive tract; Z82.49 Family history of ischemic heart disease and other diseases of the circulatory system
CPT/HCPCS: 93454

== ENCOUNTER → 2018-03-19 | Outpatient (CLI) | payer MEDICARE, BC ==
--- NOTE | 2018-03-19 13:31 | SFUN ---
SLEEP CENTER FOLLOW UP NOTE DATE OF SERVICE: 03/19/2018 This 62-year-old gentleman had been followed in sleep center for treatment of obstructive and central sleep apnea-hypopnea syndrome. The patient had a polysomnogram and CPAP and BiPAP titration. I discussed results of sleep studies with patient in details. He has severe obstructive and central sleep apnea-hypopnea syndrome. Titration showed that CPAP was not effective. With BiPAP, respiration was under control and subsequently patient was recommended to start treatment with BiPAP. Today, it is his first visit after he received his BiPAP unit. Patient reported that he feels much better with the BiPAP then without treatment. He sleeps better and he feels much better during the day and not so sleepy as before. No sleepiness during the day. [place] Sleepiness Scale today is 10. MEDICATIONS: Metoprolol, Brilinta, Ranexa, Crestor, losartan, isosorbide, amlodipine, gabapentin, hydrochlorothiazide, nitroglycerin, [place], aspirin, folic acid. The patient mentioned that sometimes he has to take a lot of [place] because of significant amount of pain. I checked his BiPAP unit pressure is 10/7 cm of water. Usage is 27/30 nights more than 4 hours. Average usage 8.7 hours, which is perfect compliance. Leak is only 8 L/minute, which is absolutely normal range. Unfortunately, apnea-hypopnea index in the range of 20 with central apnea index 19.0. PHYSICAL EXAMINATION: During physical exam, patient in no distress. VITAL SIGNS: BP 106/56, HR 60, RR 16, weight 198, temp 97.2, oxygen saturation room air 95%. HEENT: PERRLA, EOMI. Oropharynx extremely low position of soft palate. NECK: Supple, no JVD. Thyroid is not palpable. LUNGS: Clear to percussion and to auscultation. Good air exchange. No wheezing or rhonchi. HEART: S1, S2 regular. No murmurs, gallops, or rubs. ABDOMEN: Slightly obese. EXTREMITIES: No clubbing or cyanosis. DATA SYSTEMS ANALYST: Awake, alert, and oriented X3. Cranial nerves 2 to 7 intact. There is no fasciculation or atrophy. noted. No focal deficits observed. IMPRESSION: 1. Obstructive and central sleep apnea-hypopnea syndrome. Apnea-hypopnea index reduced from 51.6 down to 19 on BiPAP. Clinically, patient feels significantly better. Improve his alertness during the day, but reading from the machine still showed significant amount of central abnormalities of respiration. The patient demonstrated great compliance with treatment and benefitting from treatment clinically. 2. Obesity. 3. History of non-Hodgkin's lymphoma diagnosed 3 years ago, status post chemotherapy. 4. Coronary artery disease, status post myocardial infarction 3 years ago. 5. Hypertension. 6. Hyperlipidemia. 7. Status post hernia repair. 8. Status post right knee surgery 2011. 9. Status post right knee total replacement 2013. 10.History of narrowing of carotid artery with 90% block on the right side and 60% block on the left side. Presently after the scope of the right side and left side, it is around 60%. 11.The patient is getting a significant amount of pain medication and some of this medication could be the reason for developing of a central apnea . PLAN: 1. Patient will continue to use BiPAP equipment every night. 2. I will see patient for follow-up visit in 2 to 3 months. 3. If patient will continue to have significant amount of central abnormalities of respiration we will proceed with BiPAP titration with ST mode. 4. Sleep hygiene with regular time in bed for 7-1/2 hours. 5. No driving if feeling sleepiness. Sincerely, Jairo Galdamez MD, PhD, FAASM Diplomat of [place] [employer] [place] [employer] Brim Curler of [facility] [place] MMABDIL / [place]: [id number] /
== END ==
LOC: SLEEP 11:19
PROVIDERS: ATTEND Internal Medicine
DX: G47.33 Obstructive sleep apnea (adult) (pediatric) (principal); E66.9 Obesity, unspecified; I25.2 Old myocardial infarction; I25.10 Atherosclerotic heart disease of native coronary artery without angina pectoris; I10 Essential (primary) hypertension; E78.5 Hyperlipidemia, unspecified; Z99.89 Dependence on other enabling machines and devices; Z79.891 Long term (current) use of opiate analgesic; Z79.82 Long term (current) use of aspirin; Z79.899 Other long term (current) drug therapy; Z85.71 Personal history of Hodgkin lymphoma; Z92.21 Personal history of antineoplastic chemotherapy; Z98.890 Other specified postprocedural states; Z96.651 Presence of right artificial knee joint

== ENCOUNTER → 2018-03-19 | Outpatient (CLI) | payer MEDICARE, BC | END | disposition home or self-care (01) | LOC: LABWHC1 09:25 | PROVIDERS: ATTEND Internal Medicine Cardiovascular Disease | DX: I25.10 Atherosclerotic heart disease of native coronary artery without angina pectoris (principal) | CPT/HCPCS: 36415; 83704 ==

== ENCOUNTER 2018-05-18 14:08 | Emergency (ER) | payer MEDICARE, BC ==
[2018-05-18 15:09] VITALS: BP 101/57; PULSE 54; RESP 16; TEMP 98.1
[2018-05-18] MEDS ORDERED: GELATIN SPONGE,ABSORB (LARGE) 1 EACH SPONGE TOPICAL STA (15:29)
[2018-05-18] MEDS ORDERED: DIPH,PERTUS(ACELL)TETVAC-LF 0.5 ML VIAL IM ONE (15:29)
--- NOTE | 2018-05-18 15:54 | ED ---
Wound/Laceration HPI - General Source: patient, RN notes reviewed Mode of arrival: ambulatory Limitations: no limitations <Carol Ann Chua - Last Filed: 05/18/18 15:54> <Aston Valles - Last Filed: 05/18/18 20:23> - General Chief Complaint: Wound/Laceration Stated Complaint: Lac/Thumb Time Seen by Provider: 05/18/18 15:24 - History of Present Illness Initial Comments: This is a 63-year-old male who presents to the emergency department with chief complaint of left thumb laceration. Patient states he was using a new knife last night at approximately 10 PM. He states he accidentally lacerated the tip of his left thumb. Patient states that he is on Brilinta. Patient states that he has had persistent bleeding. He states that he did wrap it up and apply ice last night. He presented to his primary care provider's office today and they redressed the wound. They told him to come to the emergency department as they did not have any Gelfoam. Patient reports normal sensation and range of motion. Denies any other injuries or trauma. States he is unsure if he is up- to-date with his tetanus vaccination. Denies recent fevers or chills, chest pain or shortness of breath, abdominal pain, nausea or vomiting, numbness or tingling. (Carol Ann Chua) - Related Data Home Medications Medication Instructions Recorded Confirmed Folic Acid 1 mg PO HS 02/23/14 01/28/18 Isosorbide Mononitrate [Imdur] 120 mg PO BID@0800,199902/23/14 01/28/18 Losartan [Cozaar] 50 mg PO DAILY@0800 02/23/14 01/28/18 Rosuvastatin Calcium [Crestor] 40 mg PO HS 02/23/14 01/28/18 Gabapentin [Neurontin] 300 mg PO TID 04/27/15 01/28/18 Metoprolol Tartrate [Lopressor] 50 mg PO BID 11/06/15 01/28/18 Hydrochlorothiazide [Hydrodiuril] 12.5 mg PO DAILY 02/03/17 01/28/18 Ranolazine [Ranexa] 1,000 mg PO BID 09/10/17 01/28/18 amLODIPine [Norvasc] 5 mg PO BID 09/10/17 01/28/18 Hydrocodone/Acetaminophen 1 tab PO Q4HR PRN 01/14/18 01/28/18 [Hydrocodon-Acetaminophn 10-325] Previous Rx's Medication Instructions Recorded Aspirin EC [Ecotrin Low Dose] 81 mg PO DAILY #30 tablet. 08/16/15 Nitroglycerin Sl Tabs [Nitrostat] 0.4 mg SUBLINGUAL Q5M PRN #25 tab 08/16/15 Ticagrelor [Brilinta] 90 mg PO BID #60 tab 08/16/15 Allergies Allergy/AdvReac Type Severity Reaction Status Date / Time adhesive Allergy Rash/Hives, Verified 05/18/18 15:09 RED SKIN Review of Systems ROS Other: All systems not noted in ROS Statement are negative. <Carol Ann Chua - Last Filed: 05/18/18 15:54> ROS Other: All systems not noted in ROS Statement are negative. <Aston Valles - Last Filed: 05/18/18 20:23> ROS Statement: Those systems with pertinent positive or pertinent negative responses have been documented in the HPI. 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 In the process of using a CPAP, rt bicep tendon discomfort, DDD-lumbar, L/S spondylosis. Last Myocardial Infarction Date:: 08/14/15 History of Any Multi-Drug Resistant Organisms: None Reported Past Surgical History: Cholecystectomy, Coronary Bypass/CABG, Heart Catheterization With Stent, Hernia Repair, Joint Replacement, Orthopedic Surgery , Tonsillectomy Additional Past Surgical History / Comment(s): BILAT ROTATOR CUFF REPAIR, CLAVICAL SX, CABG X2 in 1993 and 1997, total 14 stents, RT EYE CATARACT REMOVED , rt wrist surgery, RT TKA, 3 epidural back injections, total rt shoulder replacement and total rt knee repalcement, 2018 Stent to Circ Past Anesthesia/Blood Transfusion Reactions: No Reported Reaction Additional Past Anesthesia/Blood Transfusion Reaction / Comment(s): Blood transfusion July 2015. Date of Last Stent Placement:: January 14 Past Psychological History: Depression Smoking Status: Former smoker Past Alcohol Use History: Occasional Past Drug Use History: None Reported - Past Family History Mother Family Medical History: Cancer, Hypertension Father Family Medical History: Hypertension Brother(s) Family Medical History: Cancer <TomaCarol Ann cr - Last Filed: 05/18/18 15:54> General Exam Limitations: no limitations <Carol Ann Chua - Last Filed: 05/18/18 15:54> <HaiAston - Last Filed: 05/18/18 20:23> - General Exam Comments Initial Comments: General: Awake and alert, well-developed; in no apparent distress. HEENT: Head atraumatic, normocephalic. Pupils are equal, round and reactive to light. Extraocular movements intact. Oropharynx moist without erythema or exudate. Neck: Supple. Normal ROM. Cardiovascular: Regular rate and rhythm. No murmurs, rubs or gallops. Chest symmetrical. Radial pulses are 2+ equal and palpable bilaterally. Respiratory: Lungs clear to auscultation bilaterally. No wheezes, rales or rhonchi. Normal respiratory effort with no use of accessory muscles. Musculoskeletal: Normal ROM bilateral upper and lower extremities. Ambulating normally. Skin: Approximately 1 cm in diameter skin avulsion to the distal tip of the left thumb. Moderate active bleeding. Neurological: Alert and oriented x3. CN II-XII grossly intact. Speech is fluent and answers are appropriate. No focal neuro deficits. Sensation of the tip of the left thumb is intact. Psychiatric: Normal mood and affect. No overt signs of depression or anxiety noted. (Carol Ann Chua) Course <Gokul Chuaistin Mary Kay - Last Filed: 05/18/18 15:54> <Aston Valles - Last Filed: 05/18/18 20:23> Vital Signs 05/18/18 15:07 Temperature 98.1 F Pulse Rate 54 L Respiratory 16 Rate Blood Pressure 101/57 O2 Sat by Pulse 98 Oximetry - Reevaluation(s) Reevaluation #1: 05/18/18 20:23 PA supervision. I have reviewed and agree with the PA findings including all diagnostic interpretations and treatment plans. This is a left otherwise stated. (Aston Valles) Medical Decision Making <Carol Ann Chua - Last Filed: 05/18/18 15:54> <Aston Valles - Last Filed: 05/18/18 20:23> - Medical Decision Making This is a 63-year-old male who presents to the emergency department with chief complaint of left thumb laceration. Patient reports cutting the tip of his thumb last night at 10 PM. He is on blood thinners and has been unable to keep the bleeding under control. Wound was examined, cleansed and Gelfoam was placed. After ensuring no active bleeding, a tube guaze dressing was placed. Recommended the patient keep the Gelfoam in place for the next 72 hours. Patient's vital signs are stable and he is in no acute distress. He will be discharged home at this time. He is in agreement and voices understanding. All questions answered. (Carol Ann Chua) Disposition Is patient prescribed a controlled substance at d/c from ED?: No Time of Disposition: 15:54 <Carol Ann Chua - Last Filed: 05/18/18 15:54> <Aston Valles - Last Filed: 05/18/18 20:23> Clinical Impression: Avulsion of skin of finger Disposition: HOME SELF-CARE Condition: Good Instructions: Skin Avulsion (ED) Additional Instructions: Please keep Gelfoam and dressing in place for the next 72 hours. Please follow up with primary care provider within 1-2 days. Return to emergency department if symptoms should worsen or any concerns arise. Referrals: Elliot Grande MD [Primary Care Provider] - 1-2 days
== END 2018-05-18 16:00 | disposition home or self-care (01) ==
LOC: EC 14:08
DX: S61.012A Laceration without foreign body of left thumb without damage to nail, initial encounter (principal); E78.5 Hyperlipidemia, unspecified; I11.9 Hypertensive heart disease without heart failure; I25.10 Atherosclerotic heart disease of native coronary artery without angina pectoris; G47.30 Sleep apnea, unspecified; I25.2 Old myocardial infarction; Z87.891 Personal history of nicotine dependence; Z79.899 Other long term (current) drug therapy; Z91.048 Other nonmedicinal substance allergy status; Z86.79 Personal history of other diseases of the circulatory system; Z99.89 Dependence on other enabling machines and devices; Z85.72 Personal history of non-Hodgkin lymphomas; Z92.21 Personal history of antineoplastic chemotherapy; Z23 Encounter for immunization; W26.0XXA Contact with knife, initial encounter; Y93.89 Activity, other specified
CPT/HCPCS: 90471; 90715; 99282

== ENCOUNTER → 2018-06-17 | Outpatient (CLI) | payer MEDICARE, BC ==
--- NOTE | 2018-06-17 11:35 | PN ---
PROGRESS NOTE DATE OF SERVICE: 06/17/2018 A 63-year-old gentleman who has been followed in the Sleep Center for treatment of obstructive and central sleep apnea-hypopnea syndrome. During previous visit while patient was on BiPAP with a pressure of 10/7 cm of water, apnea-hypopnea index was in the range of 20 with central apnea index around 19. Patient continued to use BiPAP equipment because that pressure was the best by results of the titration and today he came for followup visit. He sleeps well with the machine and he feels well during the day. [place] Sleepiness Scale although increased slightly to 13. I checked his BiPAP unit, usage is 25/30 nights for more than 4 hours, average 7.7 hours per night. Regimen on BiPAP unit, inspiratory pressure of 10 cm of water maximal and minimal expiratory pressure of 7, pressure support 3. Leak is 1 L/minute. Apnea-hypopnea index reading 14.0 with a central apnea-hypopnea index 12.6. MEDICATIONS: The same, which is metoprolol, Brilinta, Ranexa, Crestor, losartan, isosorbide, amlodipine, gabapentin, hydrochlorothiazide, [place], aspirin, folic acid, nitroglycerin. PHYSICAL EXAM: Patient in no distress. BP 98/55, HR 55, RR 16, height 5 and 5, weight 197.2, body mass index 32.7, temperature 98.7, oxygen saturation at room air 95%. OROPHARYNX: Extremely low position of soft palate. Neck Supple, no JVD. Thyroid is not palpable. LUNGS Clear to percussion and to auscultation. Good air exchange. No wheezing or rhonchi. HEART S1, S2 regular. No murmurs, gallops, or rubs. ABDOMEN Soft and nontender. Bowel sounds are present. No organomegaly appreciated. EXTREMITIES No clubbing or cyanosis. SENIOR HEALTH CONSULTANT Awake, alert, and oriented X3. Cranial nerves 2 to 7 intact. There is no fasciculation or atrophy. noted. No focal deficits observed. IMPRESSION: 1. Obstructive and central sleep apnea-hypopnea syndrome, respiration improved, apnea- hypopnea index 59.6 during diagnostic sleep study, down to 14.0 on the BiPAP now, which is improvement comparing with the previous visit. The patient demonstrated great compliance with treatment. 2. History of non-Hodgkin's lymphoma, diagnosed 3 years ago, status post chemotherapy. 3. Coronary artery disease, status post heart attack 3 years ago. 4. Hypertension. 5. Hyperlipidemia. 6. Status post hernia repair. 7. Status post right knee surgery 2011. 8. Status post right knee total replacement 2013. 9. History of narrowing of carotid artery with 90% block on the right side and 60% block on the left side. 10.Patient is also on significant amount of pain medication at night, which also could be the reason for central apneas. PLAN: 1. I changed regimen in BiPAP unit to minimal expiratory pressure of 5 cm of water, maximal inspiratory pressure of 12 cm of water and pressure support of 4. 2. Patient will continue to use BiPAP equipment every night for the whole night. 3. Losing weight. 4. Sleep hygiene with regular time bed for at least 8 hours. 5. No driving if feeling any sleepiness. 6. I will see patient for followup visit in 2 to 3 months. Thank you very much for allowing me to participate in the management of your patient Sincerely, Jairo Galdamez MD, PhD, FAAS Diplomat of [place] [employer] [place] [employer] Surveillance Officer of [facility] [place] MMODL / IJN: [id number] /
== END | disposition home or self-care (01) ==
LOC: SLEEP 10:22
PROVIDERS: ATTEND Internal Medicine
DX: G47.33 Obstructive sleep apnea (adult) (pediatric) (principal); G47.31 Primary central sleep apnea; I25.10 Atherosclerotic heart disease of native coronary artery without angina pectoris; I25.2 Old myocardial infarction; E78.5 Hyperlipidemia, unspecified; I10 Essential (primary) hypertension; Z99.89 Dependence on other enabling machines and devices; Z85.72 Personal history of non-Hodgkin lymphomas; Z92.21 Personal history of antineoplastic chemotherapy; Z96.651 Presence of right artificial knee joint; Z79.82 Long term (current) use of aspirin; Z79.891 Long term (current) use of opiate analgesic; Z79.899 Other long term (current) drug therapy; Z86.79 Personal history of other diseases of the circulatory system; Z98.890 Other specified postprocedural states

== ENCOUNTER → 2018-09-10 | Outpatient (CLI) | payer MEDICARE, BC ==
--- NOTE | 2018-09-10 11:54 | SFUN ---
SLEEP CENTER FOLLOW UP NOTE DATE OF SERVICE: 09/10/2019 This 63-year-old gentleman has been followed in sleep center for treatment of mostly central and obstructive sleep apnea-hypopnea syndrome. On diagnostic sleep study, it was mostly central apneas, but it was significant amount of hypopneas also. During previous visit, apnea-hypopnea index was 14.0, a central apnea-hypopnea index 12.6, and I increased maximal inspiratory pressure on BiPAP to 12 cm of water from 10 cm of water with pressure support of 3 and minimal expiratory pressure of 5.0 cm of water. Patient continued to use his BiPAP equipment every night without significant problems. He sleeps well with that. [place] Sleepiness Scale today is 15 . I checked his BiPAP unit. The pressure in the machine is 10.8/7.8 average. During the previous visit, it was 10/7, subsequently now is about 1 cm of water more than before. With this regimen, his apnea-hypopnea index for the last month reduced to 12.1 per hour from 14.0 per hour during the previous visit. For the last night, it is 9.9. Subsequently, there is improvement after increasing the pressure. Usage of the machine is 25 out of 30 nights more than 4 hours, 23 out of 30 nights with average usage is 6.4 hours per night. MEDICATIONS: Metoprolol, Brilinta, Ranexa, Crestor, losartan, isosorbide, amlodipine, gabapentin, hydrochlorothiazide, [place], aspirin, folic acid, nitroglycerin. PHYSICAL EXAMINATION: During physical exam, patient in no distress. VITAL SIGNS: BP 125/62, HR 58, RR 16, height 5 feet 5 inches, weight 196.0, body mass index 32.6, temperature 97.5, oxygen saturation at room air 94%. HEENT: PERRLA, EOMI. Oropharynx extremely low position of soft palate. NECK: Supple, no JVD. Thyroid is not palpable. LUNGS: Clear to percussion and to auscultation. Good air exchange. No wheezing or rhonchi. HEART: S1, S2 regular. No murmurs, gallops, or rubs. ABDOMEN: Slightly obese. EXTREMITIES: No clubbing or cyanosis. SOAPING DEPARTMENT SUPERVISOR: Awake, alert, and oriented X3. Cranial nerves 2 to 7 intact. There is no fasciculation or atrophy. noted. No focal deficits observed. IMPRESSION: 1. Severe central and obstructive sleep apnea-hypopnea syndrome, improved on BiPAP. The patient demonstrated great compliance with treatment, benefitting from treatment, respiration improved, but not to the ideal numbers. 2. History of non-Hodgkin's lymphoma, status post chemotherapy. 3. Coronary artery disease, status post heart attack 3 years ago. 4. Hypertension. 5. Hyperlipidemia. 6. Status post hernia repair. 7. Status post total right knee replacement in 2013. 8. History of narrowing of carotid artery with 60% block bilaterally. 9. Patient is on a significant amount of medications at night, which also could be contributing to his central respiratory abnormalities. PLAN: 1. I will change regimen to the CPAP, with increasing maximal pressure to 15 cm of water. 2. Patient will continue to use CPAP equipment every night. 3. Sleep hygiene with regular time in bed for least 8 hours. 4. No driving if feeling any sleepiness. 5. Followup visit in 2 months. Thank you very much for allowing me to participate in management of your patient. Sincerely, Jairo Galdamez MD, PhD, FAASM Diplomat of [employer] Oceanographer Physical of [facility] [place] MMODL / IJN: [id number] /
== END ==
LOC: SLEEP 10:44
PROVIDERS: ATTEND Internal Medicine
DX: G47.33 Obstructive sleep apnea (adult) (pediatric) (principal); I25.10 Atherosclerotic heart disease of native coronary artery without angina pectoris; I10 Essential (primary) hypertension; E78.5 Hyperlipidemia, unspecified; Z98.890 Other specified postprocedural states; Z96.651 Presence of right artificial knee joint; Z86.79 Personal history of other diseases of the circulatory system; Z99.89 Dependence on other enabling machines and devices; Z85.72 Personal history of non-Hodgkin lymphomas; Z92.21 Personal history of antineoplastic chemotherapy

== ENCOUNTER → 2018-11-12 | Outpatient (CLI) | payer MEDICARE, BC ==
--- NOTE | 2018-11-12 11:35 | SFUN ---
SLEEP CENTER FOLLOW UP NOTE DATE OF SERVICE: 11/12/2018 A 63-year-old gentleman had been followed in sleep center for treatment of central and obstructive sleep apnea-hypopnea syndrome in severe range. Apnea-hypopnea index on diagnostic sleep study 51.6. During the previous visit, I changed regimen of his machine from BiPAP to CPAP and with the range of pressure 5 to 15 cm of water. Patient still has some problems related to most probably humidification, has some sounds from the machine, sometimes feels his breathing sounds through the machine. I checked his PAP unit maximal pressure of 15, minimal of 5 most of the time pressure is 12.4 cm of water. Usage is 29 out of 30 nights and 17 out of 30 nights more than 4 hours, average usage 4.9 hours per night. Leak is only 2 L/minute, which is perfect. Apnea-hypopnea index for the month 6.9. For the last night, only 2.7, which is perfect. [place] Sleepiness Scale today is 11. PHYSICAL EXAMINATION: During physical exam, patient in no distress. VITAL SIGNS: BP 114/54, HR 52, RR 16, height 5 feet 5-1/2 inches, weight 195 pounds, body mass index 31.9, temperature 96.9, oxygen saturation at room air 95%. HEENT: PERRLA, EOMI. Oropharynx extremely low position of soft palate. NECK: Supple, no JVD. Thyroid is not palpable. LUNGS: Clear to percussion and to auscultation. Good air exchange. No wheezing or rhonchi. HEART: S1, S2 regular. No murmurs, gallops, or rubs. ABDOMEN: Slightly obese. EXTREMITIES: No clubbing or cyanosis. AUTO MACHINIST: Awake, alert, and oriented X3. Cranial nerves 2 to 7 intact. There is no fasciculation or atrophy. noted. No focal deficits observed. IMPRESSION: 1. Central and obstructive sleep apnea-hypopnea syndrome, most on control with CPAP, average pressure 12.4 cm of water. The patient still has some problems mostly with humidification, but there is a significant improvement comparing with the previous visit, benefitting from treatment. 2. History of non-Hodgkin's lymphoma, status post chemotherapy. 3. Coronary artery disease, status post heart attack 3 years ago. 4. Hypertension. 5. Hyperlipidemia. 6. Status post hernia repair. 7. Status post total right knee replacement in 2013. 8. History of narrowing carotid artery with 60% block bilaterally. PLAN: 1. Patient will continue to use PAP equipment every night for the whole night. 2. He should put his PAP unit lower than his head at least 1 to 2 feet, now it is at about the same level. 3. Sleep hygiene with regular time in bed for at least 7-1/2 to 8 hours. 4. No driving if feeling any sleepiness. Thank you very much for allowing me to participate management of your patient. Sincerely, Jairo Galdamez MD, PhD, FAASM Diplomat of [employer] Leak Detector of [facility] [place] MMODL / IJN: [id number] /
== END | disposition home or self-care (01) ==
LOC: SLEEP 10:15
PROVIDERS: ATTEND Internal Medicine
DX: G47.33 Obstructive sleep apnea (adult) (pediatric) (principal); G47.31 Primary central sleep apnea; I10 Essential (primary) hypertension; E78.5 Hyperlipidemia, unspecified; Z99.89 Dependence on other enabling machines and devices; Z85.72 Personal history of non-Hodgkin lymphomas; Z92.21 Personal history of antineoplastic chemotherapy; Z98.890 Other specified postprocedural states; Z96.651 Presence of right artificial knee joint; Z86.79 Personal history of other diseases of the circulatory system

== ENCOUNTER → 2018-12-04 | Outpatient (CLI) | payer MEDICARE, BC ==
--- NOTE | 2018-12-04 16:01 | XR ---
EXAMINATION TYPE: XR shoulder complete LT DATE OF EXAM: 12/04/2018 COMPARISON: NONE HISTORY: Pain TECHNIQUE: Three views are submitted. FINDINGS: The osseous structures are intact. There is widening of the AC joint which measures 1.9 cm there is elevation of the clavicle relative the acromion. Arthropathy of the glenohumeral joint noted. Spur ex tending off the acromium noted. Sternotomy wires incidentally noted. IMPRESSION: 1. Widening of the AC joint with slight elevation of clavicle correlate for history of trauma and AC joint separation. Recommend follow-up MRI. 2. Glenohumeral humeral joint arthropathy. 3. Spur extending off the acromium can result in chronic rotator cuff disease.
--- NOTE | 2018-12-05 08:03 | XR ---
EXAMINATION TYPE: XR cervical spine comp DATE OF EXAM: 12/04/2018 TECHNIQUE: Frontal, lateral, oblique, swimmers, and open mouth view of the cervical spine are obtaine d. HISTORY: M50.30 cervical disc degeneration . Left-sided neck pain. COMPARISON: 03/20/2015 FINDINGS: The cervical spine is visualized in its entirety from C1 thru the top of T1 level, it is s atisfactory in alignment without evidence of acute fracture or dislocation. There is interval worseni ng of degenerative disc disease in comparison to the prior of 2014. Multilevel facet arthropathy, unc overtebral hypertrophy, intervertebral disc space narrowing and anterior osteophytes are seen. Athero sclerosis of the carotid arteries is incidentally noted. The pre-vertebral soft tissue appears within normal limits. The C1-C2 articulation is within normal limits on the open mouth view. The oblique images demonstrate mild neural foraminal narrowing radiographically at C4-5 on the right and at C3-4 on as well as C6-7 on the left. Partial visualization of postsurgical changes of the mediastinum are noted. IMPRESSION: 1. No acute fracture or malalignment of the cervical spine. 2. Interval worsening of the degenerative disc disease in comparison the prior 2014 throughout the ce rvical spine. 3. Moderate multilevel degenerative disc disease resulting in at least mild radiographic neural grace inal narrowing on the right at C4-C5 and on the left at C3-C4 and C6-C7.
== END ==
LOC: RADXRMAIN 15:18
PROVIDERS: ATTEND Family Medicine
DX: M19.012 Primary osteoarthritis, left shoulder (principal); M75.92 Shoulder lesion, unspecified, left shoulder; M48.02 Spinal stenosis, cervical region; M50.30 Other cervical disc degeneration, unspecified cervical region
CPT/HCPCS: 72050

== ENCOUNTER → 2018-12-24 | Outpatient (CLI) | payer MEDICARE, BC ==
--- NOTE | 2018-12-24 19:42 | MR ---
EXAMINATION TYPE: MR shoulder LT wo con DATE OF EXAM: 12/24/2018 COMPARISON: Left shoulder x-ray December 04, 2018. HISTORY: Neck pain into left shoulder TECHNIQUE: Multiplanar, multisequence imaging of the left shoulder is performed without contrast. FINDINGS: Rotator Cuff: Distal supraspinatus and infraspinatus tendons are intact. Distal subscapularis tendon. Intact. Rotator cuff muscle bulk is preserved. Acromioclavicular Joint: There is widening of the acromioclavicular joint space suggesting prior surg amparo, susceptibility artifact at this level is present. Suspect partial removal of acromion with small size residual acromion noted. Underlying fat plane is maintained. Glenohumeral Joint: Moderate to severe narrowing with moderate size spur inferior medial femoral head coronal image 14 is present. Synovial thickening is seen. Moderate joint effusion is present. Labrum: The labrum appears grossly intact given limitation of non-arthrogram study. Biceps Tendon: The long head of biceps is in normal location within bicipital groove. Bone marrow signal: No focal abnormal marrow signal is appreciated. Other: No additional significant abnormality is appreciated. IMPRESSION: Evidence of prior surgery at AC joint. No rotator cuff tear. Moderate to severe glenohume ral joint arthropathy noted.
--- NOTE | 2018-12-24 19:46 | MR ---
MRI CERVICAL SPINE: CLINICAL HISTORY: Cervical disc degeneration per order. Neck pain into left shoulder. TECHNIQUE: Multiplanar, multisequence imaging of the cervical spine is performed without and with IV contrast, 7.5 cc of gadolinium was given intravenously. COMPARISON: MRI cervical spine April 08, 2015. FINDINGS: Sagittal images of the cervical spine show the craniocervical junction to appear within nor mal limits. The cervical and upper thoracic spinal cord is normal in course, caliber, and signal. V ertebral alignment is stable and anatomic. [id number] disc space narrowing C6-C7 level is redem onstrated. The vertebral body and intravertebral disk heights otherwise remain normal. Small posterio r disc herniation C5-C6 level is again seen on sagittal images. The bone marrow signal intensity is w ithin normal limits. Mild to moderate anterior spurring lower cervical spine is redemonstrated. No hahn spicious enhancement is seen. Axial images show the C2-C3 level to appear within normal limits. Axial images at C3-C4 levels uncovertebral facet degenerative changes causing mild to moderate right greater than left bilateral neural foraminal narrowing. Axial images at C4-C5 level shows a new left paracentral/foraminal disc protrusion effacing the anter olateral thecal sac axial image 32 and causing moderate left-sided neural foraminal narrowing with so me uncovertebral facet degenerative change present. Axial images at C5-C6 level show more prominent broad-based central disc protrusion effacing anterior thecal sac up to ventral surface of spinal cord and causing [id number] left-sided neural grace inal narrowing. Right-sided neural foramen is patent. Axial images at C6-C7 level show mild broad disc protrusion minimally effacing anterior thecal sac, t here is persistent mild left-sided neural foraminal narrowing due to uncovertebral facet degenerative change. Axial images at C7-T1 level demonstrates mild left-sided neural foraminal narrowing due to uncoverteb ral facet degenerative change. IMPRESSION: Multilevel degenerative changes in cervical spine as detailed above. Findings remain most prominent at C5-C6 level. New degenerative changes C4-C5 level are noted.
== END | disposition home or self-care (01) ==
LOC: RADMRIMAIN 09:35
PROVIDERS: ATTEND Family Medicine
DX: M47.812 Spondylosis without myelopathy or radiculopathy, cervical region (principal); M19.012 Primary osteoarthritis, left shoulder
CPT/HCPCS: 72156; 73221; A9585

== ENCOUNTER → 2019-01-02 | Outpatient (CLI) | payer MEDICARE, BC ==
--- NOTE | 2019-01-03 17:39 | PE ---
EXAMINATION TYPE: PET CT fusion skull to thigh DATE OF EXAM: 01/02/2019 COMPARISON: 09/10/2017 CT neck soft tissue Prior PET/CT: 12/27/2017 HISTORY: Lymphoma TECHNIQUE: Following the intravenous administration of 14.12 mCi of F-18 FDG, whole body images are performed from the skull base to the midthigh. Images are reviewed on the computer in the coronal, a xial, and sagittal planes. Reconstructed rotating images are created on independent workstation and reviewed on the computer. A localization and attenuation correction CT is performed in conjunction with the PET scan. DLP: 528.02 mGycm SCAN: Subsequent Blood glucose: 102 mg/dL Average Mediastinum SUV: 1.09 Average Liver SUV: 1.7 FINDINGS: NECK: There is some vague uptake within the posterior right muscle within the right upper extremity. PET Image 33. This is nonspecific with an SUV value 1.8. Focal radiotracer is unusual within the mu scle. THORAX: No abnormal uptake ABDOMEN: No abnormal uptake PELVIS: No abnormal uptake OSSEOUS STRUCTURES: No abnormal uptake LOCALIZATION CT: No suspicious adenopathy is evident. Mucosal thickening is through the maxillary sin uses. The left maxillary sinus appears opacified. The ascending thoracic aorta at the level of main p ulmonary artery is 3.2 cm patent main pulmonary artery the bifurcation is 2.9 cm. Moderate vascular c alcification is within the aorta. COMPARISON: The uptake within the right upper extremity is new IMPRESSION: 1. There is a small focus of radiotracer accumulation within the muscle of the right upper extremity at the edge the [id number]. This is of uncertain clinical significance. This is atypical muscle ac tivity uptake being focal. The SUV value is intermediate. This would be an unusual location for a panfilo itary recurrence of lymphoma. 2. Radiotracer distribution throughout the remaining visualized [id number] appears within normal l imits. No suspicious recurrent or metastatic disease otherwise evident
== END ==
LOC: RADPETMAIN 07:45
PROVIDERS: ATTEND Internal Medicine Hematology & Oncology
DX: C85.89 Other specified types of non-Hodgkin lymphoma, extranodal and solid organ sites (principal)
CPT/HCPCS: 78815; A9552

== ENCOUNTER 2019-02-17 07:39 | Day surgery (SDC) | payer MEDICARE, BC ==
[2019-02-12 15:18] VITALS: BMI 31.6
[~2019-02-17 07:39] MED LIST changes: -ALPRAZolam 0.25 MG TAB PO PRN; -ALPRAZolam 0.5 MG TAB PO PRN; -ASPIRIN 325 MG TAB PO STA; -CLOPIDOGREL 75 MG TAB PO STA; +LACTATED RINGERS 1,000 ML IV SCH; -NITROGLYCERIN SL TABS 0.4 MG TAB SUBLINGUAL PRN; -SODIUM CHLORIDE 0.9% 1,000 ML in EMPTY BAG 1 BAG IV ONE
--- NOTE | 2019-02-17 07:58 | P.GSHP ---
History of Present Illness H&P Date: 02/17/19 CHIEF COMPLAINT: Colon screen HISTORY OF PRESENT ILLNESS: The patient is a 63-year-old male who presents for colon screen. Lower endoscopy was offered for further evaluation and management. PAST MEDICAL HISTORY: Please see list. PAST SURGICAL HISTORY: Please see list. MEDICATIONS: Please see list. ALLERGIES: Please see list. SOCIAL HISTORY: No illicit drug use FAMILY HISTORY: No reports of Crohn disease or ulcerative colitis. REVIEW OF ORGAN SYSTEMS: CONSTITUTIONAL: No reports of fevers or chills. PHYSICAL EXAM: VITAL SIGNS: Stable GENERAL: Well-developed pleasant in no acute distress. HEENT: No scleral icterus. Extraocular movements grossly intact. Moist buccal mucosa. NECK: Supple without lymphadenopathy. CHEST: Unlabored respirations. Equal bilateral excursions. CARDIOVASCULAR: Regular rate and rhythm. Distal 2+ pulses. ABDOMEN: Soft, nontender, nondistended. MUSCULOSKELETAL: No clubbing, cyanosis, or edema. ASSESSMENT: 1. Colon screen. PLAN: 1. 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 Last Myocardial Infarction Date:: 08/14/15 History of Any Multi-Drug Resistant Organisms: None Reported Past Surgical History: Cholecystectomy, Coronary Bypass/CABG, Heart Catheterization With Stent, Hernia Repair, Joint Replacement, Orthopedic Surgery, Tonsillectomy Additional Past Surgical History / Comment(s): BILAT ROTATOR CUFF REPAIR, RT CLAVICAL SX, CABG X2 in 1993 and 1997, total 14 stents, RT EYE CATARACT REMOVED, rt wrist surgery, Rt knee replacement, 3 epidural back injections, total rt shoulder replacement Past Anesthesia/Blood Transfusion Reactions: No Reported Reaction Additional Past Anesthesia/Blood Transfusion Reaction / Comment(s): . Date of Last Stent Placement:: January 14/2018 Smoking Status: Former smoker - Past Family History Mother Family Medical History: Cancer Father Family Medical History: Hypertension Brother(s) Family Medical History: Cancer Medications and Allergies Home Medications Medication Instructions Recorded Confirmed Type Folic Acid 1 mg PO HS 05/28/14 05/17/19 History Isosorbide Mononitrate [Imdur] 120 mg PO BID 02/23/14 02/12/19 History Losartan [Cozaar] 50 mg PO QAM 02/23/14 02/12/19 History Rosuvastatin Calcium [Crestor] 40 mg PO HS 02/23/14 02/12/19 History Gabapentin [Neurontin] 300 mg PO TID 04/27/15 02/12/19 History Aspirin EC [Ecotrin Low Dose] 81 mg PO DAILY #30 tablet.dr 08/16/15 02/12/19 Rx Nitroglycerin Sl Tabs [Nitrostat] 0.4 mg SUBLINGUAL Q5M PRN #25 tab 08/16/15 02/12/19 Rx Ticagrelor [Brilinta] 90 mg PO BID #60 tab 08/16/15 02/12/19 Rx Metoprolol Tartrate [Lopressor] 50 mg PO BID 11/06/15 02/12/19 History Hydrochlorothiazide [Hydrodiuril] 12.5 mg PO DAILY 02/03/17 02/12/19 History Ranolazine [Ranexa] 1,000 mg PO BID 09/10/17 02/12/19 History amLODIPine [Norvasc] 5 mg PO BID 09/10/17 02/12/19 History Hydrocodone/Acetaminophen 1 tab PO Q4HR PRN 01/14/18 02/12/19 History [Hydrocodon-Acetaminophn 10-325] Allergies Allergy/AdvReac Type Severity Reaction Status Date / Time adhesive Allergy Rash/Hives, Verified 02/12/19 15:05 RED SKIN
[2019-02-17] MEDS ORDERED: LIDOCAINE 1% 20 ML VIAL (10MG/ML) FOR IV START INTRADERMA ONE (08:13)
[2019-02-17 08:14] VITALS: TEMP 97.7
[2019-02-17] MEDS ORDERED: PROPOFOL 10 MG/ML 20 ML VIAL IV ONE (08:28)
[2019-02-17] MEDS ORDERED: LIDOCAINE 1% INJ 10MG/ML (20 ML MDV) ONE (08:28)
--- NOTE | 2019-02-17 08:52 | P.PCN ---
Date of Procedure: 02/17/19 Description of Procedure: PREOPERATIVE DIAGNOSIS: Colonoscopy screening Family history of colon polyps, brother POSTOPERATIVE DIAGNOSIS: Colonoscopy screening Family history of colon polyps, brother Colon polyp, descending colon Internal/External hemorrhoids, grade 3. OPERATION: Colonoscopy to the ileocecal valve and appendiceal orifice. Colonoscopy with cold forceps biopsy SURGEON: Nataliia Anders MD. ANESTHESIA: MAC. INDICATIONS: The patient is a 63-year-old female who presents for colonoscopy screening. Last colonoscopy over 10 years ago. Benefits and risks were described and informed consent was obtained. DESCRIPTION OF PROCEDURE: The patient had undergone Gatorade, MiraLAX and Dulcolax prep. He had been brought into the operating room and laid in the left lateral decubitus position. After adequate intravenous sedation, the rectum was examined with 2% lidocaine jelly. External hemorrhoids were encountered. The rectal tone was within normal limits. No lesions were palpated in the rectal vault. An Olympus colonoscope was advanced until the ileocecal valve and appendiceal orifice were clearly viewed. The prep was good with visualization of the mucosal folds. The scope was removed with visualization of each mucosal fold. No scattered diverticulosis was encountered. Descending colon polyp, 50 cm from the anal verge, 3 mm in size was found and cold forcep biopsy. No evidence of focal colitis was found. Retroflexion of the scope demonstrated grade 3 internal hemorrhoids without active bleeding or inflammation. The colon was desufflated. The patient had tolerated the procedure well. Withdrawal time was over 6 minutes. FINDINGS: Aronchick preparation quality scale 2 (1-5) Internal hemorrhoids, grade 3 External hemorrhoids, grade 3. No arteriovenous malformations. No diverticulosis. - Cold forceps biopsy at 50 cm from the anal verge, 3 mm polyp, descending colon No focal colitis. RECOMMENDATIONS: Repeat colonoscopy in 5 years, 2023 Plan - Discharge Summary New Discharge Prescriptions: No Action Losartan [Cozaar] 50 mg PO QAM Rosuvastatin Calcium [Crestor] 40 mg PO HS Folic Acid 1 mg PO HS Isosorbide Mononitrate [Imdur] 120 mg PO BID Gabapentin [Neurontin] 300 mg PO TID Aspirin EC [Ecotrin Low Dose] 81 mg PO DAILY #30 tablet. Nitroglycerin Sl Tabs [Nitrostat] 0.4 mg SUBLINGUAL Q5M PRN #25 tab PRN Reason: Chest Pain Ticagrelor [Brilinta] 90 mg PO BID #60 tab Metoprolol Tartrate [Lopressor] 50 mg PO BID Hydrochlorothiazide [Hydrodiuril] 12.5 mg PO DAILY Ranolazine [Ranexa] 1,000 mg PO BID amLODIPine [Norvasc] 5 mg PO BID Hydrocodone/Acetaminophen [Hydrocodon-Acetaminophn 10-325] 1 tab PO Q4HR PRN PRN Reason: Moderate Pain Discharge Medication List Folic Acid 1 mg PO HS 02/23/14 [History] Isosorbide Mononitrate [Imdur] 120 mg PO BID 02/23/14 [History] Losartan [Cozaar] 50 mg PO QAM 02/23/14 [History] Rosuvastatin Calcium [Crestor] 40 mg PO HS 02/23/14 [History] Gabapentin [Neurontin] 300 mg PO TID 04/27/15 [History] Aspirin EC [Ecotrin Low Dose] 81 mg PO DAILY #30 tablet. 08/16/15 [Rx] Nitroglycerin Sl Tabs [Nitrostat] 0.4 mg SUBLINGUAL Q5M PRN #25 tab 08/16/15 [Rx] Ticagrelor [Brilinta] 90 mg PO BID #60 tab 08/16/15 [Rx] Metoprolol Tartrate [Lopressor] 50 mg PO BID 11/06/15 [History] Hydrochlorothiazide [Hydrodiuril] 12.5 mg PO DAILY 02/03/17 [History] Ranolazine [Ranexa] 1,000 mg PO BID 09/10/17 [History] amLODIPine [Norvasc] 5 mg PO BID 09/10/17 [History] Hydrocodone/Acetaminophen [Hydrocodon-Acetaminophn 10-325] 1 tab PO Q4HR PRN 01/14/18 [History] Follow up Appointment(s)/Referral(s): Nataliia Anders MD [STAFF PHYSICIAN] - As Needed Patient Instructions/Handouts: Colorectal Polyps (DC) Activity/Diet/Wound Care/Special Instructions: Repeat colonoscopy 5 years, 2023. RE-START BLOOD THINNER ON FRIDAY, FEBRUARY 19 Discharge Disposition: HOME SELF-CARE
[2019-02-17 09:11] VITALS: BP 92/51; PULSE 55; RESP 16
== END 2019-02-17 09:21 | disposition home or self-care (01) ==
LOC: ORWHC2ENDO 07:39
PROVIDERS: ATTEND Surgery Plastic and Reconstructive Surgery
DX: Z12.11 Encounter for screening for malignant neoplasm of colon (principal); D12.4 Benign neoplasm of descending colon; K64.2 Third degree hemorrhoids; I25.119 Atherosclerotic heart disease of native coronary artery with unspecified angina pectoris; I11.9 Hypertensive heart disease without heart failure; Z83.71 Family history of colonic polyps; Z87.891 Personal history of nicotine dependence; J44.9 Chronic obstructive pulmonary disease, unspecified; E78.5 Hyperlipidemia, unspecified; I25.2 Old myocardial infarction; M19.90 Unspecified osteoarthritis, unspecified site; M47.9 Spondylosis, unspecified; G47.30 Sleep apnea, unspecified; Z99.89 Dependence on other enabling machines and devices; Z85.72 Personal history of non-Hodgkin lymphomas; Z95.1 Presence of aortocoronary bypass graft; Z95.5 Presence of coronary angioplasty implant and graft; Z90.49 Acquired absence of other specified parts of digestive tract; Z79.891 Long term (current) use of opiate analgesic; Z79.02 Long term (current) use of antithrombotics/antiplatelets; Z79.82 Long term (current) use of aspirin; Z79.899 Other long term (current) drug therapy; Z91.09 Other allergy status, other than to drugs and biological substances
CPT/HCPCS: 88305; 45380; J2001; J2704

== ENCOUNTER → 2019-11-12 | Outpatient (CLI) | payer MEDICARE, BC ==
--- NOTE | 2019-11-12 09:47 | US ---
EXAMINATION TYPE: US carotid duplex BILAT DATE OF EXAM: 11/12/2019 COMPARISON: NONE CLINICAL HISTORY: Z13.6 screening for cardiovascular disorders. Stenosis EXAM MEASUREMENTS: RIGHT: Peak Systolic Velocity (PSV) cm/sec ----- Right CCA: 53.2 ----- Right ICA: 135.0 ----- Right ECA: Occluded ICA/CCA ratio: 2.5 RIGHT: End Diastole cm/sec ----- Right CCA: 19.8 ----- Right ICA: 39.7 ----- Right ECA: Occluded LEFT: Peak Systolic Velocity (PSV) cm/sec ----- Left CCA: 68.8 ----- Left ICA: 104.3 ----- Left ECA: 164.0 ICA/CCA ratio: 1.5 LEFT: End Diastole cm/sec ----- Left CCA: 23.6 ----- Left ICA: 38.1 ----- Left ECA: 15.3 VERTEBRALS (direction of flow): Right Vertebral: Antegrade Left Vertebral: Antegrade Rhythm: Normal Right ECA 100% occluded. Bilateral plaque visualized. IMPRESSION: 1. Total occlusion of the right external carotid artery. 2. Stenosis of 50-69% within the right internal carotid artery. 3. No hemodynamically significant stenosis of the left common carotid or internal carotid artery. Criteria for Assigning % of Stenosis / Diameter reduction (Estimation based on the indirect measurements of the internal carotid artery velocities (ICA PSV). 1. Normal (no stenosis)=ICA PSV < 125 cm/s: ratio < 2.0: ICA EDV<40 cm/s. 2. Less than 50% stenosis=ICA PSV < 125 cm/s: ratio < 2.0: ICA EDV<40 cm/s. 3. 50 to 69% stenosis=ICA PSV of 125 to 230 cm/s: ration 2.0 ? 4.0: ICA EDV 40-100 cm/s. 4. Greater than 70% stenosis to near occlusion= ICA PSV > 230 cm/s: ratio > 4.0: ICA EDV > 100 cm/s. 5. Near occlusion= ICA PSV velocities may be low or undetectable: variable ratio and ICA EDV. 6. Total occlusion=unable to detect flow.
--- NOTE | 2019-11-12 09:48 | US ---
EXAMINATION TYPE: US duplex aorta DATE OF EXAM: 11/12/2019 COMPARISON: NONE CLINICAL HISTORY: Z13.6 screening for cardiovascular disorders. Screening. EXAM MEASUREMENTS: Abdominal Aorta: Proximal: 2.1 x 2.1 cm Mid: 1.4 x2.1 cm Distal: 2.0 x 1.1 cm Bifurcation: 1.3cm 1.4cm IMPRESSION: No sonographic evidence of abdominal aortic aneurysm in the visualized portions of the ab dominal aorta.
== END | disposition home or self-care (01) ==
LOC: RADUSMAIN 08:43
PROVIDERS: ATTEND Family Medicine
DX: I65.21 Occlusion and stenosis of right carotid artery (principal); Z13.6 Encounter for screening for cardiovascular disorders
CPT/HCPCS: 93880; 93979

== ENCOUNTER → 2020-01-14 | Outpatient (CLI) | payer MEDICARE, BC ==
--- NOTE | 2020-01-14 14:11 | PE ---
"Nuclear medicine PET/CT HISTORY: Lymphoma, subsequent, C 83.09 Patient received 12.1 mCi F-18 FDG intravenously in delayed scanning was performed from the skull bas e to the mid thighs. Localization and attenuation correction CT scan was performed. Correlation to prior nuclear medicine PET/CT 01/02/2019 neck And chest: There is no evident cervical or supraclavicular adenopathy. No axillary, mediastinal, or hilar adenopathy. Patient is post median sternotomy, dense coronary artery calcifications are pre sent. No pleural or pericardial effusion. Suspect some gynecomastia changes. Posterior left pleural c alcification present in the mid chest. No suspicious hypermetabolic uptake. No evident lung mass. ABDOMEN: Patient is post cholecystectomy. No retroperitoneal adenopathy or ascites. No evident liver mass. Adjacent to the sigmoid colon, axial image #206 there is a focus of low-attenuation present whi ch shows apparent mass effect on the underlying colon, punctate foci of air present. There is associa sal hypermetabolic uptake present. This is an interval finding. No pelvic adenopathy or free fluid. P rostatic calcifications are present. Dense vascular calcifications present in the aortoiliac location . Right lower quadrant shows a focus of colonic uptake may be physiologic. Osseous structures are stable. Postop changes are noted to the right shoulder, there is some streak a rtifact present. IMPRESSION: Findings may represent a small mural abscess, difficult to exclude colon carcinoma, consi sherri follow-up, colonoscopy. No evident lymphoma recurrence. A Yellow level critical message alert has been initiated for Marques Katz MD via the [employer] 36 0 | Critical Results System on 01/14/2020 2:08 PM. This message alert has been sent to Marques Ktaz MD via the preferences provided by the clinician for the receipt of Radiology Critical Findings. [facility] ID [id number]."
== END | disposition home or self-care (01) ==
LOC: RADPETMAIN 07:25
PROVIDERS: ATTEND Internal Medicine Hematology & Oncology
DX: C83.09 Small cell B-cell lymphoma, extranodal and solid organ sites (principal)
CPT/HCPCS: 78815; A9552

== ENCOUNTER → 2020-02-08 | Outpatient (CLI) | payer MEDICARE, BC | END | disposition home or self-care (01) | LOC: LABWHC1 10:06 | PROVIDERS: ATTEND Internal Medicine Gastroenterology | DX: U07.1 COVID-19 (principal) | CPT/HCPCS: 87635 ==

== ENCOUNTER 2020-02-11 07:17 | Day surgery (SDC) | payer MEDICARE, BC ==
[2020-02-10 09:31] VITALS: BMI 31.6
[~2020-02-11 07:17] MED LIST changes: +LIDOCAINE 1% (10MG/ML) FOR IV START INTRADERMA PRN
[2020-02-11 07:31] VITALS: RESP 16; TEMP 97
[2020-02-11] MEDS ORDERED: PROPOFOL 10 MG/ML 20 ML VIAL IV ONE (07:50)
[2020-02-11] MEDS ORDERED: LIDOCAINE 1% INJ 10MG/ML (20 ML MDV) ONE (07:50)
--- NOTE | 2020-02-11 08:07 | P.PCN ---
Date of Procedure: 02/11/20 Procedure(s) Performed: BRIEF HISTORY: Patient is a 64-year-old pleasant white male scheduled for an elective colonoscopy as a part of evaluation of abnormal PET scan that showed increased uptake in the sigmoid colon. PROCEDURE PERFORMED: Colonoscopy with snare polypectomy PREOPERATIVE DIAGNOSIS: Abnormal PET scan showing increased uptake in the sigmoid colon. IV sedation per Anesthesia. PROCEDURE: After informed consent was obtained, the patient, was brought into the endoscopy unit. IV sedation was administered by Anesthesia under continuous monitoring. Digital rectal examination was normal. Initially the Olympus CF-160 flexible video colonoscope was then inserted in the rectum, gradually advanced into the cecum without any difficulty. Careful examination was performed as the scope was gradually being withdrawn. Ileocecal valve and the appendiceal orifice were visualized and appeared normal. Prep was excellent. Mucosa of the cecum, appeared normal. In the ascending colon there was a 5 mm sessile polyp that was removed by snare polypectomy. Rest of the ascending colon, transverse colon, descending colon, sigmoid colon, and rectum appeared normal. Scattered sigmoidal diverticulosis seen. Retroflexion was performed in the rectum and grade 2 internal hemorrhoids were seen. The patient tolerated the procedure well. IMPRESSION: 5 mm ascending colon polyp status post polypectomy Scattered sigmoidal diverticulosis Grade 2 internal hemorrhoids RECOMMENDATIONS: Findings of this examination were discussed with the patient as well as his family. Was advised to follow with the biopsy results. If the biopsy shows an adenoma he can have a repeat colonoscopy in 5 years..
[2020-02-11 08:23] VITALS: BP 102/56; PULSE 55
== END 2020-02-11 08:44 | disposition home or self-care (01) ==
LOC: ORWHC2ENDO 07:17
PROVIDERS: ATTEND Internal Medicine Gastroenterology
DX: D12.2 Benign neoplasm of ascending colon (principal); K57.30 Diverticulosis of large intestine without perforation or abscess without bleeding; K64.1 Second degree hemorrhoids; I25.2 Old myocardial infarction; I10 Essential (primary) hypertension; E78.5 Hyperlipidemia, unspecified; G47.33 Obstructive sleep apnea (adult) (pediatric); J44.9 Chronic obstructive pulmonary disease, unspecified; M19.90 Unspecified osteoarthritis, unspecified site; Z91.048 Other nonmedicinal substance allergy status; Z87.891 Personal history of nicotine dependence; Z79.899 Other long term (current) drug therapy; Z79.82 Long term (current) use of aspirin; Z95.1 Presence of aortocoronary bypass graft; Z95.5 Presence of coronary angioplasty implant and graft
CPT/HCPCS: 45385; J2001; J2704; 88305

== ENCOUNTER 2020-08-23 09:13 | Observation (INO) | payer MEDICARE, BC ==
[2020-08-23 09:42] LABS: Basophils % (A) 0 %; Eosinophils # (A) 0.1 k/uL (0-0.7); Eosinophils % (A) 2 %; HCT 38.6 % (39.0-53.0); HGB 13.1 gm/dL (13.0-17.5); Lymphocytes # (A) 1.3 k/uL (1.0-4.8); Lymphocytes % (A) 19 %; MCH 33.9 pg (25.0-35.0); MCHC 33.8 g/dL (31.0-37.0); MCV 100.1 fL (80.0-100.0); Mean Platelet Volume 7.3; Monocytes # (A) 0.6 k/uL (0-1.0); Monocytes % (A) 10 %; Neutrophils # (A) 4.6 k/uL (1.3-7.7); Neutrophils % (A) 69 %; Platelet Count 160 k/uL (150-450); RBC 3.86 m/uL (4.30-5.90); RDW 14.3 % (11.5-15.5); WBC 6.8 k/uL (3.8-10.6)
--- NOTE | 2020-08-23 09:49 | XR ---
EXAMINATION TYPE: XR chest 2V DATE OF EXAM: 08/23/2020 COMPARISON: May 03, 2017 HISTORY: Shortness of breath TECHNIQUE: Frontal and lateral views of the chest are obtained. FINDINGS: Scattered senescent parenchymal changes noted. Hyperinflation compatible with COPD. No evidence for infiltrate. No evidence for atelectasis. Heart size is stable. Mediastinal structures are stable and grossly unremarkable. No evidence for hilar prominence. Degenerative changes dorsal spine. IMPRESSION: 1. No evidence for acute pulmonary disease.
[2020-08-23 10:03] LABS: ALT 29 U/L (4-49); AST 44 U/L (17-59); African American GFR (CKD) >90 (>60 ml/min/1.73 sqM); Albumin 3.6 g/dL (3.5-5.0); Alkaline Phosphatase 56 U/L (38-126); Anion Gap 5 mmol/L; Blood Urea Nitrogen 15 mg/dL (9-20); Calcium 8.3 mg/dL (8.4-10.2); Carbon Dioxide 21 mmol/L (22-30); Chloride 109 mmol/L (98-107); Glucose 110 mg/dL (74-99); Lipase 53 U/L (23-300); Magnesium 1.8 mg/dL (1.6-2.3); Non-African American GFR(CKD) >90 (>60 ml/min/1.73 sqM); Potassium 3.9 mmol/L (3.5-5.1); Sodium 135 mmol/L (137-145); Total Bilirubin 0.7 mg/dL (0.2-1.3)
[2020-08-23 10:07] LABS: INR 0.9 (<1.2); Prothrombin Time 9.9 sec (9.0-12.0)
[2020-08-23 10:08] LABS: Partial Thromboplastin Time 21.2 sec (22.0-30.0)
--- NOTE | 2020-08-23 10:12 | ED ---
Chest Pain HPI - General Chief Complaint: Chest Pain Stated Complaint: chest pain Time Seen by Provider: 08/23/20 09:25 Source: patient, EMS Mode of arrival: EMS Limitations: no limitations - History of Present Illness Initial Comments: Patient is a 65-year-old male with past medical history of coronary artery disease, status post CABG with multiple additional stents who presents emergency Department with reported chest pain. Patient states that his pain was sudden onset this morning while he was watching TV. Denies any radiation of the pain. Normally states that he is able to take a nitro and his pain will completely improved. States that he took 3 nitro this morning and did not have improvement in his symptoms and therefore called EMS. He also took 1 baby aspirin this morning and for additional baby aspirins when he called EMS. Patient reports that his last cath was several years ago. Denies any active chest pain upon arrival to the emergency room. Admits to associated nausea and diaphoresis. No vomiting. No ripping or tearing sensation to his back. Denies any numbness, tingling or weakness in his extremities. Does admit to associated shortness of breath. No other alleviating, precipitating or modifying factors - Related Data Home Medications Medication Instructions Recorded Confirmed Isosorbide Mononitrate [Imdur] 120 mg PO BID 02/23/14 08/23/20 Losartan [Cozaar] 50 mg PO QAM 02/23/14 08/23/20 Rosuvastatin Calcium [Crestor] 40 mg PO HS 02/23/14 08/23/20 Metoprolol Tartrate [Lopressor] 50 mg PO BID 11/06/15 08/23/20 hydroCHLOROthiazide [Hydrodiuril] 12.5 mg PO DAILY 02/03/17 08/23/20 Ranolazine [Ranexa] 1,000 mg PO BID 09/10/17 08/23/20 amLODIPine [Norvasc] 5 mg PO BID 09/10/17 08/23/20 Hydrocodone/Acetaminophen 1 tab PO Q4HR PRN 01/14/18 08/23/20 [Hydrocodone/Acetaminophen 10-325] methocarbamoL [Robaxin] 750 mg PO QID 02/10/20 08/23/20 Gabapentin 600 mg PO TID 08/23/20 08/23/20 Lidocaine 5% Patch [Lidoderm 5% 1 patch TOPICAL DAILY 08/23/20 08/23/20 Patch] Ticagrelor [Brilinta] 60 mg PO BID 08/23/20 08/23/20 Previous Rx's Medication Instructions Recorded Aspirin EC [Ecotrin Low Dose] 81 mg PO DAILY #30 tablet. 08/16/15 Nitroglycerin Sl Tabs [Nitrostat] 0.4 mg SUBLINGUAL Q5M PRN #25 tab 08/16/15 Allergies Allergy/AdvReac Type Severity Reaction Status Date / Time adhesive Allergy Rash/Hives, Verified 08/23/20 10:25 RED SKIN ezetimibe [From Zetia] Allergy Unknown Verified 08/23/20 10:25 Review of Systems ROS Statement: Those systems with pertinent positive or pertinent negative responses have been documented in the HPI. ROS Other: All systems not noted in ROS Statement are negative. EKG Findings - EKG Comments: EKG Findings:: EKG demonstrates sinus bradycardia with a ventricular rate of 53. SC interval 194. QRS 108. QTC of 446. 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 Last Myocardial Infarction Date:: 08/14/15 History of Any Multi-Drug Resistant Organisms: None Reported Past Surgical History: Coronary Bypass/CABG, Heart Catheterization With Stent Additional Past Surgical History / Comment(s): BILAT ROTATOR CUFF REPAIR, RT CLAVICAL SX, CABG X2 in 1993 and 1997, total 14 stents, RT EYE CATARACT REMOVED, rt wrist surgery, Rt knee replacement, 3 epidural back injections, total rt shoulder replacement. Hearth cath with stents-pt states total 13 stents Past Anesthesia/Blood Transfusion Reactions: No Reported Reaction Additional Past Anesthesia/Blood Transfusion Reaction / Comment(s): . Date of Last Stent Placement:: January 14/2018 Past Psychological History: No Psychological Hx Reported Smoking Status: Former smoker Past Alcohol Use History: Occasional Past Drug Use History: None Reported - Past Family History Mother Family Medical History: Cancer Father Family Medical History: Hypertension Brother(s) Family Medical History: Cancer General Exam Limitations: no limitations General appearance: alert, in no apparent distress Head exam: Present: atraumatic, normocephalic, normal inspection Eye exam: Present: normal appearance, PERRL, EOMI. Absent: scleral icterus, conjunctival injection, periorbital swelling ENT exam: Present: normal exam, mucous membranes moist Neck exam: Present: normal inspection. Absent: tenderness, meningismus, lymphadenopathy Respiratory exam: Present: normal lung sounds bilaterally. Absent: respiratory distress, wheezes, rales, rhonchi, stridor Cardiovascular Exam: Present: regular rate, normal rhythm, normal heart sounds. Absent: systolic murmur, diastolic murmur, rubs, gallop, clicks GI/Abdominal exam: Present: soft, normal bowel sounds. Absent: distended, tenderness, guarding, rebound, rigid Extremities exam: Present: normal inspection, full ROM, normal capillary refill. Absent: tenderness, pedal edema, joint swelling, calf tenderness Back exam: Present: normal inspection Neurological exam: Present: alert, oriented X3, CN II-XII intact Psychiatric exam: Present: normal affect, normal mood Skin exam: Present: warm, dry, intact, normal color. Absent: rash Course Vital Signs 08/23/20 08/23/20 09:24 10:08 Pulse Rate 54 L 50 L Respiratory 18 18 Rate Blood Pressure 138/74 103/54 O2 Sat by Pulse 98 96 Oximetry Chest Pain MDM - MDM On arrival patient is placed into room 7. A thorough history and physical exam was performed. Patient is hooked up to continuous pulse ox and cardiac monitoring. 12-lead EKG was performed. Laboratory studies are conducted. Results are discussed with the patient. Because of his significant cardiac history did recommend hospitalization for which the patient did agree to. Discussed the case with Dr. Malik who agreed to admit the patient. He remained in stable condition and was transported to the floor Disposition Clinical Impression: Hx of CABG, Chest pain Disposition: ADMITTED IP TO THIS HOSP Condition: Stable Is patient prescribed a controlled substance at d/c from ED?: No Decision to Admit Reason: Admit from EC Decision Date: 08/23/20 Decision Time: 10:42
[2020-08-23] MEDS ORDERED: MORPHINE SULFATE 4 MG/ML SYRINGE IVP STA (10:41)
[2020-08-23] MEDS ORDERED: NALOXONE 0.4 MG/ML 1 ML VIAL IV PRN (10:42)
[2020-08-23] MEDS ORDERED: MORPHINE SULFATE 4 MG/ML SYRINGE IVP SCH (12:00)
[2020-08-23] MEDS ORDERED: ALPRAZolam 0.5 MG TAB PO PRN (14:34)
[2020-08-23] MEDS ORDERED: ALPRAZolam 0.25 MG TAB PO PRN (14:34)
[2020-08-23] MEDS ORDERED: NITROGLYCERIN SL TABS 0.4 MG TAB SUBLINGUAL PRN (14:34)
[2020-08-23] MEDS ORDERED: SODIUM CHLORIDE 0.9% 1,000 ML in EMPTY BAG 1 BAG IV ONE (14:34)
[2020-08-23] MEDS ORDERED: ATORVASTATIN 80 MG TAB PO STA (14:34)
[2020-08-23] MEDS ORDERED: ASPIRIN 325 MG TAB PO STA (14:34)
--- NOTE | 2020-08-23 14:48 | P.CRDCN ---
History of Present Illness Consult date: 08/23/20 Consult reason: chest pain Chief complaint: Chest pain History of present illness: This is a pleasant 65-year-old gentleman well known to our practice. He used to follow with Dr. VC oYrk in the office, he now sees Dr. Barcenas. Patient has a history of coronary artery disease with prior bypass surgery as well as multiple stent placements. Hypertension, hyperlipidemia, sleep apnea, osteoarthritis, COPD, large B-cell non-Hodgkin's lymphoma which was diagnosed in 2014, patient's most recent cardiac catheterization was performed in 2018 which revealed that the left main artery appeared to have mild disease only. It bifurcates into left circumflex as well as ramus intermedius. The LAD is occluded. The left circumflex is a moderate caliber vessel with mild disease only. If intermedius is stented and the stent is patent. Overall, according to the patient he's been doing fairly well. He presents to the hospital on this occasion with symptoms of midsternal chest tightness with associated diaphores is, shortness of breath. Patient states he took a total of 3 sublingual nitroglycerin with minimal relief. He also felt as though he was going to pass out. Patient has had episodes of chest discomfort in the past, but according to the patient he felt that this was quite severe and he was very concerned. His chest x-ray did not reveal any evidence for acute pulmonary disease. EKG showed normal sinus rhythm with no acute changes. Blood pressure 120/70, heart rate in the 50s, respirations 18. Afebrile. White blood cell count 6.8, hemoglobin 13.1, platelet count 160. Sodium 135, potassium 3.9, BUN 15, creatinine 0.7. Troponins 0.0122. BNP level 312. Coronavirus testing negative in January. 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 Last Myocardial Infarction Date:: 08/14/15 History of Any Multi-Drug Resistant Organisms: None Reported Past Surgical History: Coronary Bypass/CABG, Heart Catheterization With Stent Additional Past Surgical History / Comment(s): BILAT ROTATOR CUFF REPAIR, RT CLAVICAL SX, CABG X2 in 1993 and 1997, total 13 stents, RT EYE CATARACT REMOVED, rt wrist surgery, Rt knee replacement, 3 epidural back injections, total rt shoulder replacement. Hearth cath with stents-pt states total 13 stents Past Anesthesia/Blood Transfusion Reactions: No Reported Reaction Additional Past Anesthesia/Blood Transfusion Reaction / Comment(s): . Date of Last Stent Placement:: January 14/2018 Past Psychological History: No Psychological Hx Reported Smoking Status: Former smoker Past Alcohol Use History: Occasional Additional Past Alcohol Use History / Comment(s): QUIT SMOKING 1993, smoked for 15 yrs, 3 PPD Past Drug Use History: None Reported - Past Family History Mother Family Medical History: Cancer Father Family Medical History: Hypertension Brother(s) Family Medical History: Cancer Medications and Allergies Home Medications Medication Instructions Recorded Confirmed Type Isosorbide Mononitrate [Imdur] 120 mg PO BID 02/23/14 08/23/20 History Losartan [Cozaar] 50 mg PO QAM 02/23/14 08/23/20 History Rosuvastatin Calcium [Crestor] 40 mg PO HS 02/23/14 08/23/20 History Aspirin EC [Ecotrin Low Dose] 81 mg PO DAILY #30 tablet.dr 08/16/15 08/23/20 Rx Nitroglycerin Sl Tabs [Nitrostat] 0.4 mg SUBLINGUAL Q5M PRN #25 tab 08/16/15 08/23/20 Rx Metoprolol Tartrate [Lopressor] 50 mg PO BID 11/06/15 08/23/20 History hydroCHLOROthiazide [Hydrodiuril] 12.5 mg PO DAILY 02/03/17 08/23/20 History Ranolazine [Ranexa] 1,000 mg PO BID 09/10/17 08/23/20 History amLODIPine [Norvasc] 5 mg PO BID 09/10/17 08/23/20 History Hydrocodone/Acetaminophen 1 tab PO Q4HR PRN 01/14/18 08/23/20 History [Hydrocodone/Acetaminophen 10-325] methocarbamoL [Robaxin] 750 mg PO QID 02/10/20 08/23/20 History Gabapentin 600 mg PO TID 08/23/20 08/23/20 History Lidocaine 5% Patch [Lidoderm] 1 patch TOPICAL DAILY 08/23/20 08/23/20 History Ticagrelor [Brilinta] 60 mg PO BID 08/23/20 08/23/20 History Allergies Allergy/AdvReac Type Severity Reaction Status Date / Time adhesive Allergy Rash/Hives, Verified 08/23/20 10:25 RED SKIN ezetimibe [From Zetia] Allergy Unknown Verified 08/23/20 10:25 Physical Exam Vitals: Vital Signs Temp Pulse Pulse Resp BP BP Pulse Ox 08/23/20 13:07 50 L 18 08/23/20 12:07 97.9 F 50 L 18 121/70 96 08/23/20 10:08 50 L 18 103/54 96 08/23/20 09:24 54 L 18 138/74 98 Intake and Output 08/22/20 08/23/20 08/23/20 22:59 06:59 14:59 Intake Total 200 Balance 200 Intake: Oral 200 Other: Voiding Method Toilet Weight 86.183 kg PHYSICAL EXAMINATION: GENERAL: 65-year-old gentleman in no acute distress at the time of my examination HEENT: Head is atraumatic, normocephalic. Pupils equal, round. Sclera anict charles. Conjunctiva are clear. Mucous membranes of the mouth are moist. Neck is supple. There is no elevated jugular venous pressure. Carotid bruit is heard. HEART EXAMINATION: Heart S1, S2 normal. No murmur or gallop heard. CHEST EXAMINATION: Lungs are clear to auscultation and precussion. No chest wall tenderness is noted on palpation or with deep breathing. ABDOMEN: Soft, nontender. Bowel sounds are heard. No organomegaly noted. EXTREMITIES: 2+ peripheral pulses with no evidence of peripheral edema and no calf tenderness noted. NEUROLOGIC patient is awake, alert and oriented 3 . Results 08/23/20 09:30 08/23/20 09:30 Cardiac Enzymes 08/23/20 08/23/20 08/23/20 Range/Units 09:30 09:30 12:56 AST 44 (17-59) U/L Troponin I <0.012 <0.012 (0.000-0.034) ng/mL Coagulation 08/23/20 Range/Units 09:30 PT 9.9 (9.0-12.0) sec APTT 21.2 L (22.0-30.0) sec CBC 11/25/20 Range/Units 09:30 WBC 6.8 (3.8-10.6) k/uL RBC 3.86 L (4.30-5.90) m/uL Hgb 13.1 (13.0-17.5) gm/dL Hct 38.6 L (39.0-53.0) % Plt Count 160 (150-450) k/uL Comprehensive Metabolic Panel 08/23/20 Range/Units 09:30 Sodium 135 L (137-145) mmol/L Potassium 3.9 (3.5-5.1) mmol/L Chloride 109 H (98-107) mmol/L Carbon Dioxide 21 L (22-30) mmol/L BUN 15 (9-20) mg/dL Creatinine 0.77 (0.66-1.25) mg/dL Glucose 110 H (74-99) mg/dL Calcium 8.3 L (8.4-10.2) mg/dL AST 44 (17-59) U/L ALT 29 (4-49) U/L Alkaline Phosphatase 56 (38-126) U/L Total Protein 6.0 L (6.3-8.2) g/dL Albumin 3.6 (3.5-5.0) g/dL Current Medications Generic Name Dose Route Start Last Admin Trade Name Freq PRN Reason Stop Dose Admin Aspirin 325 mg 08/23/20 14:34 Aspirin 325 Mg Tab PO 08/23/20 14:35 ONCE STA Morphine Sulfate 4 mg 08/23/20 13:11 Morphine Sulfate 4 Mg/Ml Syringe IVP Q4HR PRN Moderate to Severe Pain Naloxone HCl 0.2 mg 08/23/20 10:42 Naloxone 0.4 Mg/Ml 1 Ml Vial IV Q2M PRN Opioid Reversal Nitroglycerin 0.4 mg 08/23/20 14:34 Nitroglycerin Sl Tabs 0.4 Mg Tab SUBLINGUAL Q5M PRN Chest Pain Intake and Output 08/22/20 08/23/20 08/23/20 22:59 06:59 14:59 Intake Total 200 Balance 200 Intake: Oral 200 Other: Voiding Method Toilet Weight 86.183 kg Patient Weight 08/24/20 06:59 Weight 86.183 kg 08/23/20 09:30 08/23/20 09:30 EKG Interpretations (text) EKG shows a sinus bradycardia with no acute changes. Assessment and Plan Plan: Assessment and plan #1 chest pain, suggestive of angina, troponins negative 2, EKG shows a sinus bradycardia with no acute changes. #2 known history of coronary artery disease with prior bypass surgery as well as multiple stent placements #3 hypertension #4 hyperlipidemia #5 history of non-Hodgkin's lymphoma #6 family history of smoking #7 family history of premature coronary artery disease Plan Patient has been advised to undergo cardiac catheterization, the risks and the benefits were explained to the patient in the and he is willing to proceed. This will be performed today by Dr. Barcenas. DNP note has been reviewed, I agree with a documented findings and plan of care. Patient was seen and examined.
[2020-08-23] MEDS: MORPHINE SULFATE 4 MG/ML SYRINGE IVP PRN ×2 (15:02→19:00)
[2020-08-23] MEDS ORDERED: TEMAZEPAM 15 MG CAP PO PRN (15:09)
[2020-08-23 16:02] VITALS: RESP 16
[2020-08-23] MEDS: GABAPENTIN 300 MG CAP PO SCH ×2 (16:14→21:22)
[2020-08-23] MEDS ORDERED: LIDOCAINE 1% INJ 10MG/ML (20 ML MDV) ONE (16:32)
--- NOTE | 2020-08-23 16:33 | HP ---
HISTORY AND PHYSICAL DATE OF SERVICE: 08/23/2020 CHIEF COMPLAINT: Chest pain. HISTORY OF PRESENT ILLNESS: This is a 65-year-old gentleman with a past medical history of multiple medical problems including CAD, CABG x2, history of non-Hodgkin lymphoma, large diffuse B-cell lymphoma in remission, history of CAD, about 13 of 14 stents, history of cataracts, being followed by Dr. Elliot Grande in the outpatient setting, complaining of chest pain. The pain was felt in the back of the chest which was constricting, mild to moderate intensity without much radiation. The patient apparently took 3 nitros and because of no relief, the patient came to [facility] and was admitted for further evaluation and treatment. There is no history of fever, chills or rigors. No history of headache, loss of consciousness, seizures, no history any hematochezia or melena at this time. No history of any associated symptoms like any headache, loss of consciousness, seizures. The patient did have some nausea and diaphoresis also. Initial troponins are negative, initial EKG which I reviewed personally showed diffuse ST-T changes. Low-voltage complex. The patient admitted for evaluation and treatment. PAST MEDICAL HISTORY: History of CAD, CABG, history of multiple stents, history of smoking. MEDICATIONS: Crestor, Nitrostat, Lidoderm, Robaxin, HydroDIURIL, Norvasc, Imdur, hydrocodone, gabapentin, Ecotrin, Brilinta, Ranexa, Lopressor, Cozaar. ALLERGIES: ZETIA. FAMILY HISTORY: History of cancer in the family. SOCIAL HISTORY: History of occasional alcohol intake. Remote history of nicotine dependence. REVIEW OF SYSTEMS: ENT: No diminished hearing, no diminished vision. CARDIOVASCULAR: As mentioned earlier. GI: As mentioned earlier. : No dysuria. NERVOUS SYSTEM: No numbness or weakness. ALLERGY/IMMUNOLOGY: No asthma or hayfever. MUSCULOSKELETAL: As mentioned earlier. DERMATOLOGY: As mentioned earlier. ENDOCRINE: No history of diabetes or hypothyroid. CONSTITUTIONAL: As mentioned earlier. DERMATOLOGY: Negative. RHEUMATOLOGY: Negative. PSYCHIATRY/ As mentioned earlier. PHYSICAL EXAMINATION: Patient is alert and oriented x3. Pulse is 50, blood pressure 121/70, respiration 18, temperature 97.9, pulse ox 98% on room air. HEENT: Conjunctivae normal. NECK: Normal. CARDIOVASCULAR SYSTEM: S1, S2, muffled. RESPIRATION: Breath sounds diminished at the bases, no rhonchi, no crackles. ABDOMEN: Soft, obese, nontender. No mass palpable. LEGS: No edema, no swelling. NERVOUS SYSTEM: Higher functions as mentioned earlier. Moves all 4 limbs. No focal motor or sensory deficits. SKIN: No ulcer, no bruises, no bleeding. JOINTS: No active deforming arthropathy. LABS: WBC 6.8, hemoglobin 13.1, sodium 135. Other labs are noted. ASSESSMENT: 1. Chest pain, possible unstable angina. 2. Hyponatremia. 3. Increased MCV. 4. History of coronary artery disease, coronary artery bypass graft and stent. 5. History of non-Hodgkin lymphoma. 6. History of degenerative joint disease and bilateral rotator cuff repair. 7. Remote history of nicotine dependence. 8. FULL CODE. RECOMMENDATION: In this 65-year-old gentleman who presented with multiple complex medical issues, will monitor the patient closely, continue with the current management and will initiate home medications. Unstable angina protocol. Cardiology consultation. Possible cardiac catheterization. The prognosis guarded because of the multiple complex medical issues. Further recommendations to follow. A copy of this will be forwarded to Dr. Elliot Grande who is the primary physician. MMODL / IJN: [id number] / ALLISON
[2020-08-23] MEDS ORDERED: SODIUM CHLORIDE 0.9% 1,000 ML IV ONE (16:47)
[2020-08-23] MEDS ORDERED: LIDOCAINE 1% INJ 10MG/ML (20 ML MDV) SQ ONE (16:59)
[2020-08-23] MEDS ORDERED: MIDAZOLAM 2 MG/2 ML VIAL IV ONE (16:59)
[2020-08-23] MEDS ORDERED: IOPAMIDOL-370 125ML BTL INJ ONE (17:11)
[2020-08-23] MEDS ORDERED: RX INFO: IV CONTRAST WAS GIVEN 1 EACH MISC MISCELLANE PRN (17:21)
[2020-08-23] MEDS ORDERED: SODIUM CHLORIDE 0.9% 1,000 ML IV SCH (17:30)
[2020-08-23] MEDS: methocarbamoL 750 MG TAB PO SCH ×2 (18:16→21:22)
[2020-08-23] MEDS: HYDROcodone/APAP 10-325MG 1 EACH TAB PO PRN (18:21)
[2020-08-23] MEDS: METOPROLOL TARTRATE 50 MG TAB PO SCH (21:21)
[2020-08-23] MEDS: amLODIPine 5 MG TAB PO SCH (21:22)
[2020-08-23] MEDS: ISOSORBIDE MONONITRATE ER 60 MG TAB.ER.24H PO SCH (21:22)
--- NOTE | 2020-08-23 23:21 | CC ---
CARDIAC CATHETERIZATION REPORT DATE OF SERVICE: August 23, 2020 PERFORMING PHYSICIAN: Juan Carlos Morrison MD. PROCEDURE PERFORMED: 1. Selective left and right coronary angiogram. 2. LEE to LAD angiogram. INDICATION: This is a 65-year-old gentleman with coronary artery disease and prior coronary artery bypass grafting and stenting with the last heart catheterization showing occluded LAD with patent LEE to LAD as well as patent stent in the ramus intermedius and occluded left circumflex and occluded RCA with the occlusion of all vein grafts, presented to the hospital complaining of chest discomfort. The symptoms were concerning for angina and because of that, a heart catheterization was advised. APPROACH: Right common femoral artery. COMPLICATION: None. LEVEL OF SEDATION: Moderate with sedation length of 17 minutes. PROCEDURE DESCRIPTION: After obtaining an informed consent, the patient was brought to cardiac earthmoving labourer. The right common femoral artery was cannulated using micropuncture technique. The micropuncture wire passed easily and then I placed a 6-Korean sheath 11 cm in the right common femoral artery. Selective right and left coronary angiogram performed using JL4 and JR4 catheters. LEE to LAD angiogram performed using an IM catheter. The procedure was completed without any complication. SELECTIVE CORONARY ANGIOGRAM: 1. The left main appeared to have mild to moderate disease only. 2. The left circumflex is occluded. 3. The ramus intermedius is stented and the stent is patent. 4. The LAD is occluded. 5. The RCA is occluded as well. CORONARY BYPASSES ANGIOGRAM: The LEE to LAD is patent. CONCLUSION: 1. Severe triple-vessel coronary artery disease. 2. Patent LEE to LAD. 3. Patent stents in the ramus intermedius coronary artery. 4. The occlusion of all vein grafts. POSTPROCEDURE MANAGEMENT: Given the above anatomy which is unchanged compared to before, recommend maximize medical treatment and continue risk factors modifications and follow up with the patient. MMODL / IJN: [id number] /
[2020-08-24] MEDS: MORPHINE SULFATE 4 MG/ML SYRINGE IVP PRN (01:30)
[2020-08-24] MEDS ORDERED: PANTOPRAZOLE 40 MG TABLET PO SCH (07:30)
[2020-08-24] MEDS: METOPROLOL TARTRATE 50 MG TAB PO SCH (08:10)
[2020-08-24] MEDS: methocarbamoL 750 MG TAB PO SCH (08:10)
[2020-08-24] MEDS: amLODIPine 5 MG TAB PO SCH (08:10)
[2020-08-24] MEDS: GABAPENTIN 300 MG CAP PO SCH (08:10)
[2020-08-24] MEDS: ISOSORBIDE MONONITRATE ER 60 MG TAB.ER.24H PO SCH (08:11)
[2020-08-24] MEDS: HYDROcodone/APAP 10-325MG 1 EACH TAB PO PRN ×2 (08:15→11:50)
[2020-08-24 08:19] LABS: Basophils % (A) 0 %; Eosinophils # (A) 0.1 k/uL (0-0.7); Eosinophils % (A) 1 %; HCT 36.5 % (39.0-53.0); HGB 12.4 gm/dL (13.0-17.5); Lymphocytes # (A) 0.9 k/uL (1.0-4.8); Lymphocytes % (A) 13 %; MCH 33.6 pg (25.0-35.0); MCHC 33.9 g/dL (31.0-37.0); MCV 99.1 fL (80.0-100.0); Mean Platelet Volume 7.5; Monocytes # (A) 0.5 k/uL (0-1.0); Monocytes % (A) 8 %; Neutrophils # (A) 5.3 k/uL (1.3-7.7); Neutrophils % (A) 77 %; Platelet Count 166 k/uL (150-450); RBC 3.68 m/uL (4.30-5.90); RDW 14.3 % (11.5-15.5); WBC 6.8 k/uL (3.8-10.6)
[2020-08-24 08:30] LABS: African American GFR (CKD) >90 (>60 ml/min/1.73 sqM); Anion Gap 5 mmol/L; Blood Urea Nitrogen 15 mg/dL (9-20); Calcium 8.9 mg/dL (8.4-10.2); Carbon Dioxide 25 mmol/L (22-30); Chloride 108 mmol/L (98-107); Glucose 112 mg/dL (74-99); Non-African American GFR(CKD) >90 (>60 ml/min/1.73 sqM); Potassium 4.1 mmol/L (3.5-5.1); Sodium 138 mmol/L (137-145)
[2020-08-24] MEDS ORDERED: hydroCHLOROthiazide 12.5 MG CAP PO SCH (09:00)
[2020-08-24] MEDS ORDERED: LIDOCAINE 5% PATCH TOPICAL SCH (09:00)
[2020-08-24] MEDS ORDERED: LOSARTAN 50 MG TAB PO SCH (09:00)
[2020-08-24 10:10] VITALS: BP 102/55; PULSE 69; TEMP 97.8
--- NOTE | 2020-08-24 10:28 | PN ---
PROGRESS NOTE Mr. Batres is a 65-year-old male with known history of coronary artery disease status post coronary artery bypass grafting and percutaneous revascularization who presented with symptoms of episode of chest discomfort. He was evaluated by Dr. Morrison and underwent cardiac catheterization and was found to have patent stent with occluded saphenous vein graft. He is doing well this morning. His breathing is stable. He denies any dizziness or palpitation. He denies any nausea. He is complaining predominantly of his back discomfort. He continued to be on amlodipine 5 mg twice a day, Lipitor 80 mg daily, isosorbide mononitrate 120 mg twice a day, losartan 50 mg daily, metoprolol tartrate 50 mg twice a day. PHYSICAL EXAMINATION: VITAL SIGNS: Blood pressure 112/50 with a heart rate in the 60s. LUNGS: Clear. HEART: Heart rate rhythm S1, S2. No S3 with systolic ejection murmur heard at the base. No diastolic murmur. No rub. ABDOMEN: Soft, nontender, positive bowel sounds, no organomegaly. EXTREMITIES: No edema. Right groin no hematoma. LAB DATA: Revealed a hemoglobin 12.4 BUN creatinine of 15and 0.8. IMPRESSION: 1. Chest discomfort with no evidence of myocardial infarction. No evidence of progression of disease with patent stent and occluded saphenous vein graft. 2. Hypertension. 3. Hyperlipidemia. RECOMMENDATION: Patient should be able to be discharged home today and followed as an outpatient with Dr. Morrison. MMODL / IJN: [id number] /
[2020-08-24] MEDS ORDERED: RANOLAZINE 500 MG TAB.ER.12H PO SCH (21:00)
[2020-08-24] MEDS ORDERED: ATORVASTATIN 80 MG TAB PO SCH (21:00)
--- NOTE | 2020-08-25 08:28 | DS ---
DISCHARGE SUMMARY FINAL DIAGNOSES: 1. Chest pain, possible unstable angina, status post negative cardiac cath. 2. Hyponatremia. 3. Increased MCV. 4. History of coronary artery disease, coronary artery bypass graft and stent. 5. History of non-Hodgkin lymphoma. 6. History of degenerative joint disease and bilateral rotator cuff repair. 7. Remote history of nicotine dependence. 8. FULL CODE. DISCHARGE DISPOSITION: The patient will be discharged in stable condition with guarded prognosis. HISTORY OF PRESENT ILLNESS: This 65-year-old gentleman has a past medical is multiple medical problems was admitted chest pain. Myocardial infarction ruled out. Cardiology performed a cardiac cath which showed patent stents and previous triple-vessel disease. The patient was treated symptomatically, improved significantly. Patient discharged home in stable condition with guarded prognosis with the following condition. Diet is cardiac diet. Activity is limited until followup. Follow up with Dr. Grande in 2-3 days. Follow up with [facility] in 1 week. DISCHARGE MEDICATIONS: 1. Brilinta 60 mg p.o. b.i.d. 2. Cozaar 50 mg q.a.m. 3. Crestor 40 mg q.h.s. 4. Gabapentin 600 mg t.i.d. 5. Hydrocodone p.r.n. 6. HydroDIURIL 12.5 mg daily. 7. Imdur 120 mg p.o. b.i.d. 8. Lidocaine patch topically. 9. Lopressor 50 mg p.o. b.i.d. 10.Norvasc 5 mg p.o. b.i.d. 11.Ranexa 1000 mg p.o. b.i.d. 12.Robaxin 750 mg q.i.d. 13.Aspirin 81 mg p.o. daily. 14.Nitrostat 0.4 mg p.r.n. Once again the patient will be discharged in stable condition with guarded prognosis. MMODL / IJN: [id number] /
[2020-08-25] MEDS ORDERED: ASPIRIN 81 MG PO SCH (09:00)
== END 2020-08-24 13:23 | disposition home or self-care (01) ==
LOC: EC 09:13 → 1SOBS 10:42
PROVIDERS: ADMIT Hospitalist; ATTEND Hospitalist
DX: R07.89 Other chest pain (principal); R11.0 Nausea; R61 Generalized hyperhidrosis; R06.02 Shortness of breath; R00.1 Bradycardia, unspecified; I25.2 Old myocardial infarction; I25.10 Atherosclerotic heart disease of native coronary artery without angina pectoris; E87.1 Hypo-osmolality and hyponatremia; I25.810 Atherosclerosis of coronary artery bypass graft(s) without angina pectoris; M51.36 Other intervertebral disc degeneration, lumbar region; M47.897 Other spondylosis, lumbosacral region; G47.30 Sleep apnea, unspecified; I10 Essential (primary) hypertension; E78.5 Hyperlipidemia, unspecified; M19.90 Unspecified osteoarthritis, unspecified site; J44.9 Chronic obstructive pulmonary disease, unspecified; Z95.1 Presence of aortocoronary bypass graft; Z95.5 Presence of coronary angioplasty implant and graft; Z79.899 Other long term (current) drug therapy; Z79.02 Long term (current) use of antithrombotics/antiplatelets; Z79.891 Long term (current) use of opiate analgesic; Z79.82 Long term (current) use of aspirin; Z88.8 Allergy status to other drugs, medicaments and biological substances; Z91.048 Other nonmedicinal substance allergy status; Z85.72 Personal history of non-Hodgkin lymphomas; Z92.21 Personal history of antineoplastic chemotherapy; Z96.611 Presence of right artificial shoulder joint; Z96.651 Presence of right artificial knee joint; Z87.891 Personal history of nicotine dependence; Z82.49 Family history of ischemic heart disease and other diseases of the circulatory system; Z80.9 Family history of malignant neoplasm, unspecified; Z84.89 Family history of other specified conditions
CPT/HCPCS: 96374; 99285; 36415; 93005; 93455; 83880; 80053; 80048; 83690; 83735; 84484; 85025 ×2; 85610; 85730; 71046; G0378 ×2; C1760; C1894; C1769 ×2; J2250; J2270 ×2; J2001; Q9967

== ENCOUNTER → 2021-01-12 | Outpatient (CLI) | payer MEDICARE, BC ==
--- NOTE | 2021-01-15 11:28 | PE ---
EXAMINATION TYPE: PET CT fusion skull to thigh DATE OF EXAM: 01/12/2021 COMPARISON: Prior PET/CT January 14, 2020 and older studies. HISTORY: Non-Hodgkin lymphoma originally diagnosed June 18, 2015 completed chemotherapy 2015. TECHNIQUE: Following the intravenous administration of 12.09 mCi of F-18 FDG, whole body images are performed from the skull base to the midthigh. Images are reviewed on the computer in the coronal, a xial, and sagittal planes. Reconstructed rotating images are created on independent workstation and reviewed on the computer. A localization and attenuation correction CT is performed in conjunction with the PET scan. Blood glucose level equals 97. SCAN: Subsequent Scan FINDINGS: Mean SUV mediastinum: 0.81 Mean SUV liver: 1.81 SKULL BASE AND NECK: No new abnormal hypermetabolic lymph nodes. CHEST, MEDIASTINUM, AND HILAR REGION: No new areas of abnormal hypermetabolic uptake. ABDOMEN AND PELVIS: Redemonstration of left-sided pelvic deposit along posterior aspect sigmoid colon , this measures 2.2 x 2.1 cm current study image [id number] similar in size to prior, Max SUV is 5.64. The m ax SUV is not provided on prior report. No new areas of abnormal hypermetabolic uptake. Normal excretion is seen. OSSEOUS STRUCTURES: No new areas of abnormal hypermetabolic uptake. OTHER CT: Moderate to severe calcified plaque bilateral carotid bulb level. Metallic hardware from ri ght shoulder arthroplasty causes streak artifact limiting evaluation of the upper thoracic structures . Post-CABG changes with mediastinal clips and sternal wires is redemonstrated. Small degree of bilater al subareolar gynecomastia again seen. Cardiomegaly is redemonstrated. Cholecystectomy clips are redemonstrated. There is moderate calcified plaque of the aorta extending i nto branch vessels. Bladder poorly distended with severe concentric wall thickening. Prominent semina l vesicles and mildly enlarged prostate gland with central calcifications. Stable mild to moderate co mpression type fracture deformity T9 level. IMPRESSION: Stable suspicious pelvic lesion in the region of the sigmoid colon. No new metastatic dis ease identified.
== END | disposition home or self-care (01) ==
LOC: RADPETMAIN 10:23
PROVIDERS: ATTEND Internal Medicine Hematology & Oncology
DX: C85.29 Mediastinal (thymic) large B-cell lymphoma, extranodal and solid organ sites (principal)
CPT/HCPCS: 78815; A9552

== ENCOUNTER → 2021-01-25 | Outpatient (CLI) | payer MEDICARE, BC ==
--- NOTE | 2021-01-25 19:41 | MR ---
EXAMINATION TYPE: MR cspine/lspine wo/w con DATE OF EXAM: 01/25/2021 COMPARISON: PET/CT 01/12/2021, MR cervical spine 12/24/2018 plain film lumbar spine 07/23/2015, lumbar MRI 08/08/2014 HISTORY: Chronic pain, cervical disc degeneration, degeneration of lumbar spine TECHNIQUE: Multiplanar, multisequence images of the cervical and lumbar spine is performed without and with IV c ontrast, utilizing 8.5 mL intravenous Gadavist FINDINGS: Cervical spine MRI: Cervical vertebral bodies show stable height, alignment, and bone marrow signal, there is multilevel spondylosis, loss of disc height signal at intervertebral levels especially C5-6, C6-7, is endplate discogenic marrow signal change. Cervical cord signal is maintained. There is some artifact on the exam. C2-3, C3-4 show similar appearance, there is uncovertebral joint hypertrophy and facet arthropathy ca using foraminal encroachment left greater than right at C3-4. No evident disc herniation at either le jennifer. No significant central stenosis. C4-5 shows left-sided foraminal encroachment due to uncovertebral joint hypertrophy and facet arthrop athy similar appearance are exam. No significant central stenosis. C5-6: Posterior extension endplate disc complex results in some mild central stenosis similar to prio r exam. No significant foraminal encroachment. C6-7 shows some mild left-sided foraminal encroachment, no significant central stenosis or evident di sc herniation. C7-T1: There is left-sided foraminal encroachment contributed by facet arthropathy change, uncoverteb ral joint hypertrophy similar to prior exam. No significant central stenosis, and there is a minimal posterior disc bulge present. There is no abnormal enhancement following contrast administration. IMPRESSION: Essentially stable degenerative disc disease, facet arthropathy greatest at C5-6 as on pr ior exam with associated foraminal encroachment. Lumbar spine MRI: Lumbar vertebral bodies show stable height, alignment, there is endplate discogenic marrow signal change, multilevel spondylosis, retrolisthesis grade 1 L5-S1. Loss of disc height sign al is greatest at L5-S1 consistent with disc desiccation and degenerative disc disease. Hypertrophic changes have progressed at L1 to is compared to prior exam. The conus is stable and shows an unremark able appearance. L5-S1: Posterior extension endplate disc complex contacts the anterior thecal sac. Circumferential ex tension endplate disc complex causes bilateral foraminal encroachment. There is facet arthropathy wit h hypertrophy ligamentum flavum. No significant spinal stenosis. L4-5: Posterior circumferential disc bulge is laterally oriented towards the right extending to cause some foraminal encroachment, endplate disc complex is noted. No central stenosis. There is some face t arthropathy change. L3-4: There is similar appearance, there is facet arthropathy change. Circumferential extension endpl ate disc complex encroaches upon the inferior aspect of the neural foramen greater on the left, minim al posterior disc bulge causes slight anterior mass effect on the thecal sac. L2-3: Posterior disc bulge causes only slight anterior mass effect on the thecal sac. No significant central stenosis or foraminal encroachment. L1-2: Posterior disc bulge causes only minimal anterior mass effect on the thecal sac. Circumferentia l extension endplate disc complex causes some right-sided foraminal encroachment. There is no abnormal enhancement following contrast administration. IMPRESSION: Degenerative disc disease, facet arthropathy, multilevel foraminal encroachment is simila r old exam.
== END | disposition home or self-care (01) ==
LOC: RADMRIMAIN 15:30
PROVIDERS: ATTEND Family Medicine
DX: M51.36 Other intervertebral disc degeneration, lumbar region (principal); M51.26 Other intervertebral disc displacement, lumbar region; M47.816 Spondylosis without myelopathy or radiculopathy, lumbar region; M99.73 Connective tissue and disc stenosis of intervertebral foramina of lumbar region; M50.322 Other cervical disc degeneration at C5-C6 level; M47.812 Spondylosis without myelopathy or radiculopathy, cervical region; M99.71 Connective tissue and disc stenosis of intervertebral foramina of cervical region
CPT/HCPCS: 72156; 72158; A9585

== ENCOUNTER 2021-02-02 13:23 | Emergency (ER) | payer MEDICARE, BC ==
[2021-02-02 13:30] VITALS: BP 157/89; PULSE 61; RESP 18; TEMP 98
[2021-02-02] MEDS ORDERED: GELATIN SPONGE,ABSORB (SMALL) 1 EACH SPONGE TOPICAL STA (14:12)
--- NOTE | 2021-02-02 14:14 | ED ---
General Adult HPI - General Chief complaint: Extremity Injury, Upper Stated complaint: Finger lac Time Seen by Provider: 02/02/21 14:03 Source: patient, RN notes reviewed Mode of arrival: ambulatory Limitations: no limitations - History of Present Illness Initial comments: 65-year-old male with a past medical history of MS, CAD, non-Hodgkin's lymphoma, degenerative disc disease presents to the emergency room for a chief complaint of laceration to the left finger. Patient states he was using a table saw to cut through the tip of his finger. Patient is up-to-date on tetanus from 2019. Patient denies any difficulty moving the finger. Patient denies any other injuries. Patient reports that he already took [place] and has morphine at home, does not want any additional pain medication at this time.Patient has no other complaints at this time including shortness of breath, chest pain, abdominal pain, nausea or vomiting, headache, or visual changes. - Related Data Home Medications Medication Instructions Recorded Confirmed Isosorbide Mononitrate [Imdur] 120 mg PO BID 02/23/14 08/23/20 Losartan [Cozaar] 50 mg PO QAM 02/23/14 08/23/20 Rosuvastatin Calcium [Crestor] 40 mg PO HS 02/23/14 08/23/20 Metoprolol Tartrate [Lopressor] 50 mg PO BID 11/06/15 08/23/20 hydroCHLOROthiazide [Hydrodiuril] 12.5 mg PO DAILY 02/03/17 08/23/20 Ranolazine [Ranexa] 1,000 mg PO BID 09/10/17 08/23/20 amLODIPine [Norvasc] 5 mg PO BID 09/10/17 08/23/20 Hydrocodone/Acetaminophen 1 tab PO Q4HR PRN 01/14/18 08/23/20 [Hydrocodone/Acetaminophen 10-325] methocarbamoL [Robaxin] 750 mg PO QID 02/10/20 08/23/20 Gabapentin 600 mg PO TID 08/23/20 08/23/20 Lidocaine 5% Patch [Lidoderm 5% 1 patch TOPICAL DAILY 08/23/20 08/23/20 Patch] Ticagrelor [Brilinta] 60 mg PO BID 08/23/20 08/23/20 Previous Rx's Medication Instructions Recorded Aspirin EC [Ecotrin Low Dose] 81 mg PO DAILY #30 tablet. 08/16/15 Nitroglycerin Sl Tabs [Nitrostat] 0.4 mg SUBLINGUAL Q5M PRN #25 tab 08/16/15 Cephalexin [Keflex] 500 mg PO Q6HR 5 Days #20 cap 02/02/21 Allergies Allergy/AdvReac Type Severity Reaction Status Date / Time adhesive Allergy Rash/Hives, Verified 02/02/21 13:31 RED SKIN ezetimibe [From Zetia] Allergy Unknown Verified 02/02/21 13:31 Review of Systems ROS Statement: Those systems with pertinent positive or pertinent negative responses have been documented in the HPI. ROS Other: All systems not noted in ROS Statement are negative. 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 Hearth cath with stents-pt states total 13 stents, Past Anesthesia/Blood Transfusion Reactions: No Reported Reaction Additional Past Anesthesia/Blood Transfusion Reaction / Comment(s): . Date of Last Stent Placement:: January 14/2018 Past Psychological History: No Psychological Hx Reported Smoking Status: Former smoker Past Alcohol Use History: Occasional Past Drug Use History: None Reported - Past Family History Mother Family Medical History: Cancer Father Family Medical History: Hypertension Brother(s) Family Medical History: Cancer General Exam Limitations: no limitations General appearance: alert, in no apparent distress Head exam: Present: atraumatic, normocephalic, normal inspection Eye exam: Present: normal appearance, PERRL, EOMI. Absent: scleral icterus, conjunctival injection, periorbital swelling ENT exam: Present: normal exam, mucous membranes moist Neck exam: Present: normal inspection. Absent: tenderness, meningismus, lymphadenopathy Respiratory exam: Present: normal lung sounds bilaterally. Absent: respiratory distress, wheezes, rales, rhonchi, stridor Cardiovascular Exam: Present: regular rate, normal rhythm, normal heart sounds. Absent: systolic murmur, diastolic murmur, rubs, gallop, clicks Extremities exam: Present: full ROM (Full range of motion of all digits.), normal capillary refill (Cap Refill less than 2 seconds in all digits. Hemostasis achieved upon arrival.), other (sensation intact all digits L hand). Absent: normal inspection (Patient has superficial avulsion of the dorsal aspect of distal fingertip L second digit involving nail bed. Does not involve bone.) Course Vital Signs 02/02/21 13:27 Temperature 98.0 F Pulse Rate 61 Respiratory 18 Rate Blood Pressure 157/89 O2 Sat by Pulse 95 Oximetry Medical Decision Making - Medical Decision Making X-ray of the left finger shows mild spurring without fracture seen. Over patient will be covered with antibiotics as this is a table saw wound. Tetanus was arty up-to-date. The avulsion involves the distal aspect of the distal phalanx left second digit. Dorsal aspect only, there is nail bed involvement. However the distal part of the nail is avulsed. Gelfoam applied without any complications. Discussed care providers are discussed going up with his doctor. He will return here for any worsening symptoms. Disposition Clinical Impression: Avulsion of skin of finger, Nail avulsion, finger Disposition: HOME SELF-CARE Condition: Good Instructions (If sedation given, give patient instructions): Nail Avulsion (ED), Laceration (ED) Additional Instructions: Please take antibiotic as directed. Keep the area clean and dry. Soak off Gelfoam in 2 days. Follow-up with your doctor. Return to the emergency room for any worsening symptoms such as spreading or streaking redness, drainage, or fever. Prescriptions: Cephalexin [Keflex] 500 mg PO Q6HR 5 Days #20 cap Is patient prescribed a controlled substance at d/c from ED?: No Referrals: Elliot Grande MD [Primary Care Provider] - 1-2 days Time of Disposition: 14:47
--- NOTE | 2021-02-02 14:32 | XR ---
EXAMINATION TYPE: XR finger LT DATE OF EXAM: 02/02/2021 COMPARISON: NONE HISTORY: Pain laceration TECHNIQUE: 3 views FINDINGS: There is some mild spurring at the DIP joint of the index finger. I see no evidence of radi opaque foreign body. There is no sign of fracture nor dislocation. IMPRESSION: Mild spurring. No fracture seen.
== END 2021-02-02 15:02 | disposition home or self-care (01) ==
LOC: EC 13:23
DX: S61.217A Laceration without foreign body of left little finger without damage to nail, initial encounter (principal); I25.10 Atherosclerotic heart disease of native coronary artery without angina pectoris; I25.2 Old myocardial infarction; Z95.1 Presence of aortocoronary bypass graft; Z87.891 Personal history of nicotine dependence; Z95.5 Presence of coronary angioplasty implant and graft; W31.2XXA Contact with powered woodworking and forming machines, initial encounter
CPT/HCPCS: 99283

== ENCOUNTER → 2022-07-16 | Outpatient (CLI) | payer MEDICARE, BC ==
--- NOTE | 2022-07-16 12:23 | XR ---
EXAMINATION TYPE: XR cervical spine 5 views comp, XR lumbar spine 3 views, XR thoracic spine 3 views DATE OF EXAM: 07/16/2022 COMPARISON: Correlation PET/CT 01/12/2021 HISTORY: 67-year-old male with chronic back pain, M50.30, M51.9 FINDINGS: CERVICAL SPINE: Median sternotomy wires. Dense atherosclerotic calcifications in the region of the bilateral carotid bulbs. Hypertrophic facet and uncovertebral joint arthropathy is present throughout. Moderate bony ne uroforaminal narrowing on the left at C3-C4 and C5-C6. Mild additional levels. Mild bony neuroforamin al narrowing on the right at C3-C4, C4-C5, C5-C6. Moderate disc/endplate degenerative change througho ut the mid and lower cervical spine. There is preserved alignment of the cervical spine. No predental space widening or prevertebral soft tissue swelling. Degenerative change of the C1 dens articulation . THORACIC SPINE: Median sternotomy wires with post-CABG clips. 12 rib bearing thoracic vertebral bodies. All pedicles are visualized. There is mild anterior wedging of T9 vertebral body with approximately 15% overall he ight loss, unchanged from the PET/CT of 01/12/2021. Mild to moderate degenerative disc disease midthor acic spine. Remaining vertebral body heights are preserved as is the alignment. Reverse right shoulde r arthroplasty noted. LUMBAR SPINE: Scattered mild to moderate degenerative disc disease and endplate spondylosis throughout. Vertebral b tomas heights are preserved and alignment is maintained. Dense episodic calcifications throughout the a bdominal aorta and iliac arteries. Facet arthropathy throughout. Cholecystectomy clips. IMPRESSION: 1. Cervical spine: Moderate multilevel spondylotic change. Moderate bony neuroforaminal narrowing on the left at C3-C4 and C5-C6. No malalignment. 2. Thoracic spine: Chronic mild compression deformity of T9. Mild degenerative disc disease thoracic spine. No malalignment. 3. Lumbar spine: Mild to moderate disc/endplate degenerative change throughout with facet arthropathy . No vertebral compression collapse or malalignment.
== END | disposition home or self-care (01) ==
LOC: RADXRMAIN 10:29
PROVIDERS: ATTEND Family Medicine
DX: M51.9 Unspecified thoracic, thoracolumbar and lumbosacral intervertebral disc disorder (principal); M47.812 Spondylosis without myelopathy or radiculopathy, cervical region; M48.061 Spinal stenosis, lumbar region without neurogenic claudication; M47.816 Spondylosis without myelopathy or radiculopathy, lumbar region; M51.34 Other intervertebral disc degeneration, thoracic region
CPT/HCPCS: 72050; 72070; 72100

== ENCOUNTER → 2022-09-07 | Outpatient (CLI) | payer MEDICARE, BC ==
--- NOTE | 2022-09-09 09:28 | CT ---
EXAMINATION TYPE: CT lumbar spine wo con DATE OF EXAM: 09/07/2022 8:03 AM COMPARISON: HISTORY: Low back pain and bilateral leg numbness. CT DLP: 1004.6 mGycm Automated exposure control for dose reduction was used. Unenhanced CT of the lumbar spine was performed. Bone and soft tissue window settings are submitted as well as coronal and sagittal reconstructions. L1-L2: Normal disc space height. No disc herniation protrusion or central stenosis. No facet joint arthropathy. No evidence for foraminal encroachment. L2-L3: Mild degenerative disc space narrowing. Far lateral and to the left disc herniation with left foraminal encroachment as well as left lateral recess stenosis. L3-L4: Moderate disc desiccation with circumferential disc bulge greatest posteriorly. Mild central s tenosis. Left greater than right neural foraminal encroachment. Facet joint arthropathy and ventral s pondylosis. L4-L5: Moderate disc desiccation with circumferential disc bulge greatest posteriorly. Mild to modera te central stenosis. Left greater than right neural foraminal encroachment. Facet joint arthropathy a nd ventral spondylosis. L5-S1: Severe degenerative disc space narrowing with endplate sclerosis and ventral spondylosis. Post erior disc bulge with mild effacement ventral thecal sac. No evidence for central stenosis or disc he rniation. Facet joint arthropathy with bilateral foraminal encroachment. IMPRESSION: 1. Multilevel degenerative disc disease with central stenosis noted at L3-4 and L4-5. 2. Far lateral into the left disc herniation at L2-3 with left lateral recess stenosis and left grace inal encroachment.
== END | disposition home or self-care (01) ==
LOC: RADCTMAIN 07:43
PROVIDERS: ATTEND Physical Medicine & Rehabilitation
DX: M43.16 Spondylolisthesis, lumbar region (principal); M51.36 Other intervertebral disc degeneration, lumbar region; M48.061 Spinal stenosis, lumbar region without neurogenic claudication; M99.73 Connective tissue and disc stenosis of intervertebral foramina of lumbar region
CPT/HCPCS: 72131

== ENCOUNTER → 2023-02-12 | Outpatient (CLI) | payer MEDICARE, BC ==
--- NOTE | 2023-02-13 10:59 | MR ---
EXAMINATION TYPE: MR Prostate wo/w con DATE OF EXAM: 02/12/2023 10:07 AM COMPARISON: None. CLINICAL INDICATION:Male, 67 years old with history of R97.20 ELEVATED PROSTATE SPECIFIC ANTIGEN; TECHNIQUE: Multi-planar, multi-sequence imaging of the pelvis is performed prior to and following the uncomplicated administration of bolus intravenous gadolinium. CONTRAST: 9 Gadavist Interpretive Criteria: PI-RADS v2.1 SERUM PSA: 3.2 on 12/10/2022 3.2 on 02/06/2023 SURGICAL PATHOLOGY: No data available. FINDINGS: Prostatic dimensions: 4.5 x 3.5 x 2.5 cm. "Bullet" Volume: 25.77 (PSA density=0.12 ng/mL/mL) CENTRAL GLAND (Central and Transition Zones/CZ+TZ): Multiple bilateral, heterogenous appearing hypertrophic stromal nodules, without suspicious lesion. ( PI-RADS 2) PERIPHERAL ZONE (PZ): Lesion within the left mid gland/apex measuring 6 mm with subtle high DWI signal in this region to be present. (PI-RADS 3) No additional evidence of masslike abnormality, or localized perfusional hypervascularity, to further suggest a focus of clinically significant prostate cancer. SEMINAL VESICLES (SV): Symmetric and unremarkable. PERIPROSTATIC TISSUES: Unremarkable. LYMPH NODES: No enlarged pelvic lymph node. REMAINING PELVIS: Bladder wall is within normal limits given distention. Mild trabeculations which are felt due to unde rdistention. No abnormal free or organized intrapelvic fluid collection. No pathologic bowel dilation or mural thickening. OSSEOUS STRUCTURES: No suspicious osseous abnormality. IMPRESSION: Small PI-RADS 3 lesion left peripheral zone mid gland/apex measuring 6 mm.
== END | disposition home or self-care (01) ==
LOC: RADMRIMAIN 08:36
PROVIDERS: ATTEND Urology
DX: N42.9 Disorder of prostate, unspecified (principal); R97.20 Elevated prostate specific antigen [PSA]
CPT/HCPCS: 72197; A9585

== ENCOUNTER → 2023-03-28 | Outpatient (CLI) | payer MEDICARE, BC ==
[2023-03-28 11:21] LABS: HCT 37.7 % (39.6-50.0); HGB 12.5 d/dL (12.0-15.0); MCHC 33.2 d/dL (32.0-37.0); MCV 105.6 FL (80.0-97.0); Mean Platelet Volume 10.7 FL (9.5-12.2); NRBC Per 100 WBC 0 X 10*3/uL (0.00-0.01); Platelet Count 200 X 10*3/uL (140-440); RBC 3.57 X 10*6/uL (4.40-5.60); RDW 14.1 % (11.5-14.5); WBC 5.14 X 10*3/uL (4.50-10.00)
[2023-03-28 11:22] LABS: Blood Urea Nitrogen 16.4 mg/dL (9.0-27.0); Carbon Dioxide 24.9 mmol/L (21.6-31.8); Chloride 105 mmol/L (96-109); Potassium 4.6 mmol/L (3.5-5.5); Sodium 141 mmol/L (135-145)
[2023-03-28 12:14] LABS: Basophils # (A) 0.02 X 10*3/uL (0.00-0.10); Basophils % (A) 0.4 %; Elliptocytes 2+; Eosinophils # (A) 0.02 X 10*3/uL (0.04-0.35); Eosinophils % (A) 0.4 %; Lymphocytes # (A) 0.96 X 10*3/uL (0.90-5.00); Lymphocytes % (A) 18.7 %; Macrocytosis (M) 2+; Monocytes # (A) 0.65 X 10*3/uL (0.20-1.00); Monocytes % (A) 12.6 %; Neutrophils # (A) 3.47 X 10*3/uL (1.80-7.70); Neutrophils % (A) 67.5 %
== END | disposition home or self-care (01) ==
LOC: LABWHC1 07:53
PROVIDERS: ATTEND Internal Medicine Interventional Cardiology
DX: Z01.812 Encounter for preprocedural laboratory examination (principal); R07.9 Chest pain, unspecified
CPT/HCPCS: 80051; 82565; 84520; 85025

== ENCOUNTER 2023-04-08 10:52 | Day surgery (SDC) | payer MEDICARE, BC ==
[2023-04-04 09:45] VITALS: BMI 33.3
[~2023-04-08 10:52] MED LIST changes: +ALPRAZolam 0.25 MG TAB PO PRN; +ALPRAZolam 0.5 MG TAB PO PRN; +ASPIRIN 325 MG TAB PO STA; +ATORVASTATIN 80 MG TAB PO STA; +HEPARIN SODIUM,PORCINE 10,000 UNIT in SODIUM CHLORIDE 0.9% 1,000 ML IRRIGATION PRN; +HEPARIN SODIUM,PORCINE 2,500 UNIT in SODIUM CHLORIDE 0.9% 250 ML IRRIGATION PRN; -LACTATED RINGERS 1,000 ML IV SCH; -LIDOCAINE 1% (10MG/ML) FOR IV START INTRADERMA PRN; +NITROGLYCERIN SL TABS 0.4 MG TAB SUBLINGUAL PRN; +SODIUM CHLORIDE 0.9% 1,000 ML in EMPTY BAG 1 BAG IV SCH
[2023-04-08] MEDS ORDERED: SODIUM CHLORIDE 0.9% 1,000 ML IV ONE (11:04)
[2023-04-08 11:16] VITALS: RESP 16; TEMP 98.2
[2023-04-08] MEDS ORDERED: ASPIRIN 81 MG ONE (11:25)
[2023-04-08] MEDS ORDERED: HYDROcodone/APAP 10-325MG 1 EACH TAB PO ONE ×2 (11:30→15:57)
[2023-04-08] MEDS ORDERED: HYDROcodone/APAP 10-325MG 1 EACH TAB ONE (11:32)
[2023-04-08] MEDS ORDERED: MIDAZOLAM 2 MG/2 ML VIAL IVP ONE (13:09)
[2023-04-08] MEDS ORDERED: LIDOCAINE 1% INJ 10MG/ML (20 ML MDV) SQ ONE (13:10)
[2023-04-08] MEDS ORDERED: IOPAMIDOL-370 100ML BTL INJ ONE (13:29)
[2023-04-08] MEDS ORDERED: RX INFO: IV CONTRAST WAS GIVEN 1 EACH MISC MISCELLANE PRN (13:35)
[2023-04-08] MEDS ORDERED: SODIUM CHLORIDE 0.9% 1,000 ML IV SCH (13:45)
[2023-04-08 16:26] VITALS: BP 119/65; PULSE 67
--- NOTE | 2023-04-08 21:25 | P.PCN ---
Date of Procedure: 04/08/23 Operative Findings: CARDIAC CATHETERIZATION PERFORMING PHYSICIAN: Juan Carlos Morrison MD, RPVI PROCEDURE PERFORMED: 1. Selective right and left coronary angiogram 2. Left heart catheterization 3. LEE into LAD angiogram 4. SVG to diagonal angiogram and SVG to LCx angiogram 5. Ultrasound-guided access of the right common femoral artery 6. Right common femoral artery angiogram INDICATION: Chest discomfort concerning for unstable angina and this 68-year-old gentleman who is known to have CAD. He underwent myocardial perfusion imaging stress test and that came in to be of normal COMPLICATION: None APPROACH: Right common femoral artery LEVEL OF SEDATION: Moderate with sedation in length of 30 minutes PROCEDURE DESCRIPTION: After obtaining an informed consent, the patient was brought to cardiac clinical genetics laboratory chief. Local anesthesia was performed using lidocaine subcutaneously. The right common femoral artery was cannulated using Seldinger technique, the guidewire passed easily, following that we advanced a 6 Filipino sheath dilator assembly, the wire and dilator were removed and sheath was flushed. Selective right and left coronary angiogram using a 6-Filipino JR4 and JL catheters. Following that we did left heart catheterization using 6-Filipino pigtail catheter. The procedure was completed there was no complication. SELECTIVE CORONARY ANGIOGRAM: The right coronary artery: Is chronically occluded Left main: Has mild disease only. The left circumflex: Is chronically occluded The ramus intermedius: Is a stented and the stent is patent The left anterior descending artery: Is also chronically occluded. The mid LAD appears to have mild disease only. Coronary bypasses angiogram: The LEE to LAD is patent The SVG to diagonal is occluded The SVG to LCx is occluded HEMODYNAMICS: The LVEDP was 8 mmHg was no significant gradient across aortic valve CONCLUSION: 1. Severe triple-vessel CAD 2. Patent LEE to LAD 3. Patent stent in the ramus intermedius 4. Occluded all vein grafts POSTPROCEDURE MANAGEMENT: Medical treatment and follow-up with the patient
== END 2023-04-08 17:29 | disposition home or self-care (01) ==
LOC: CATHCVL 10:52
PROVIDERS: ATTEND Internal Medicine Interventional Cardiology
DX: I25.119 Atherosclerotic heart disease of native coronary artery with unspecified angina pectoris (principal); I25.82 Chronic total occlusion of coronary artery; Z95.5 Presence of coronary angioplasty implant and graft; Z95.1 Presence of aortocoronary bypass graft; I25.2 Old myocardial infarction; E78.5 Hyperlipidemia, unspecified; I10 Essential (primary) hypertension; F17.210 Nicotine dependence, cigarettes, uncomplicated; Z82.49 Family history of ischemic heart disease and other diseases of the circulatory system; Z79.82 Long term (current) use of aspirin; Z79.899 Other long term (current) drug therapy
CPT/HCPCS: 93459; 76937; 99152; 99153; C1760; C1769 ×2; C1894; J2250; J2001; Q9967

== ENCOUNTER → 2023-12-16 | Outpatient (CLI) | payer MEDICARE, BC | END | disposition home or self-care (01) | LOC: LABWHC1 08:39 | PROVIDERS: ATTEND Urology | DX: N40.2 Nodular prostate without lower urinary tract symptoms (principal) | CPT/HCPCS: 36415; 84153 ==

== ENCOUNTER → 2023-12-19 | Outpatient (CLI) | payer MEDICARE, BC ==
[2023-12-19 10:11] LABS: African American GFR (CKD) >90 (>60 ml/min/1.73 sqM); Blood Urea Nitrogen 20 mg/dL (9-20); Non-African American GFR(CKD) 87 (>60 ml/min/1.73 sqM)
--- NOTE | 2023-12-20 10:37 | CT ---
EXAMINATION TYPE: CT brain wo/w con CT DLP: 2163.20 mGycm, Automated exposure control for dose reduction was used. DATE OF EXAM: 12/19/2023 10:40 AM COMPARISON: None. CLINICAL INDICATION:Male, 68 years old with history of G44.009; PHH, cluster headaches x2 weeks TECHNIQUE: CT brain was performed without and following IV contrast administration. Multiplanar reformats were g enerated. Contrast used:100ml of Isovue 300 , Oral contrast used: none. FINDINGS: Extra-axial spaces: No abnormal extra-axial fluid collections. Ventricular system: Dilatation in proportion to cerebral atrophy. Cerebral parenchyma: Mild generalized atrophy. No acute intraparenchymal hemorrhage or mass effect. The gordon-white distinction appears maintained. Scattered hypoattenuating areas are seen within the wh ite matter, nonspecific but likely mild chronic microvascular ischemic changes. No mass or other abno rmal enhancement is seen after the administration of intravenous contrast. Cerebellum: Unremarkable. Mass effect: No evidence of midline shift. Intracranial vasculature: unremarkable Soft tissues: Normal. Calvarium/osseous structures: No evidence of calvarial fracture or focal osseous lesion. Paranasal sinuses and mastoid air cells: Clear. Visualized orbits: Globes appear intact. Previous right lens surgery is likely been performed. No sandra dence of intraorbital mass. IMPRESSION: 1. No evidence of mass or acute intracranial process. 2. Mild atrophy and chronic microvascular ischemic changes.
== END | disposition home or self-care (01) ==
LOC: RADCTMAIN 08:54
PROVIDERS: ATTEND Family Medicine
DX: G44.009 Cluster headache syndrome, unspecified, not intractable (principal); I67.82 Cerebral ischemia; G31.9 Degenerative disease of nervous system, unspecified
CPT/HCPCS: 82565; 84520; 70470; 36415; Q9967

== ENCOUNTER → 2024-01-21 | Outpatient (CLI) | payer MEDICARE, BC ==
--- NOTE | 2024-01-21 10:48 | MR ---
EXAMINATION TYPE: MR brain and iac wo/w con DATE OF EXAM: 01/21/2024 7:57 AM CLINICAL INDICATION:Male, 68 years old with history of R51.9 HEADACHE, UNSPECIFIED; PHH, Headaches, h x Non-Hodgkin's Lymphoma 2016. COMPARISON: CT brain 12/19/2023 TECHNIQUE: Multi planar, multi sequence imaging was performed through the brain. Specialized thin s equences were obtained through the internal auditory canals. Pre-and post gadolinium sequences were obtained. MR contrast: IV Contrast: 9.5 cc Gadobutrol FINDINGS: The gordon-white junctions, ventricular system, and cisterns appear unremarkable. Scattered foci of h igh T2 signal intensity are seen within the periventricular white matter. Midline structures show no abnormality. Diffusion-weighted imaging shows no evidence of restricted diffusion. The susceptibility weighted images do not reveal any evidence for micro-hemorrhage. The bone marrow signal is within normal limits. Paranasal sinuses and mastoid air cells: Mild scattered paranasal sinus disease and moderately pronou nced left mastoid air cell effusion. Visualized orbits: Orbital contents are intact. After administration of gadolinium, no abnormal enhancement is seen. The internal auditory canal sequences demonstrate no significant irregularity. The 7th cranial nerve s, 8 cranial nerves, and cerebellar pontine angles appear unremarkable. After the administration bree olinium, no abnormal enhancement is seen within the internal auditory canals. Vascular loop: None. IMPRESSION: No evidence of intracranial mass nor acute/subacute CVA. No evidence of internal auditory canal abnormality. Left mastoid air cell effusion.
== END | disposition home or self-care (01) ==
LOC: RADMRIMAIN 06:56
PROVIDERS: ATTEND Family Medicine
DX: G93.6 Cerebral edema (principal)
CPT/HCPCS: 70553; A9585

== ENCOUNTER → 2024-02-13 | Outpatient (CLI) | payer MEDICARE, BC ==
--- NOTE | 2024-02-13 10:20 | MR ---
EXAMINATION TYPE: MR Prostate wo/w con DATE OF EXAM: 02/13/2024 7:42 AM COMPARISON: 02/12/2023.. CLINICAL INDICATION:Male, 68 years old with history of N40.2 NODULAR PROSTATE WITHOUT LOWER URINARY T RACT; Nodular prostate without lower urinary tract symptoms. TECHNIQUE: Multi-planar, multi-sequence imaging of the pelvis is performed prior to and following the uncomplicated administration of bolus intravenous gadolinium. CONTRAST: 9.5 Gadavist Interpretive Criteria: PI-RADS v2.1 SERUM PSA: 3.24 in 12-16-2023 3.42 on 06/11/2023 3.2 on 12/10/2022 3.2 on 02/06/2023 SURGICAL PATHOLOGY: No data available. FINDINGS: Prostatic dimensions: 4.3 x 3.5 x 2.5 cm. "Bullet" Volume:29.38 (PSA density=0.11 ng/mL/mL) CENTRAL GLAND (Central and Transition Zones/CZ+TZ): Multiple bilateral, heterogenous appearing hypertrophic stromal nodules, without suspicious lesion. ( PI-RADS 2) PERIPHERAL ZONE (PZ): Lesion within the left mid gland/apex measuring 6 mm with subtle high DWI signal has more of a streak y appearance on today's exam and felt to represent scarring change. No suspicious lesions. (PI-RADS 2 ) No additional evidence of masslike abnormality, or localized perfusional hypervascularity, to further suggest a focus of clinically significant prostate cancer. SEMINAL VESICLES (SV): Symmetric and unremarkable. PERIPROSTATIC TISSUES: Unremarkable. LYMPH NODES: No enlarged pelvic lymph node. REMAINING PELVIS: Bladder wall is within normal limits given distention. Mild trabeculations which are felt due to unde rdistention. No abnormal free or organized intrapelvic fluid collection. No pathologic bowel dilation or mural thickening. OSSEOUS STRUCTURES: No suspicious osseous abnormality. IMPRESSION: Prior lesion in the left peripheral zone mid gland/apex measuring 6 mm not significantly changed in a ppearance more like scarring on today's exam. No suspicious lesions. 1. No specific features for high-risk prostate cancer. Maximum PI-RADS score: 2. 2. BPH, estimated gland volume xx mL. 4. No suspicious osseous lesion. No lymphadenopathy. No evidence of prostate adenocarcinoma involving the periprostatic tissues.
== END | disposition home or self-care (01) ==
LOC: RADMRIMAIN 06:30
PROVIDERS: ATTEND Urology
DX: N40.0 Benign prostatic hyperplasia without lower urinary tract symptoms (principal)
CPT/HCPCS: 72197; A9585

== ENCOUNTER → 2024-03-25 | Outpatient (CLI) | payer MEDICARE, BC ==
[2024-03-25 08:32] LABS: African American GFR (CKD) >90 (>60 ml/min/1.73 sqM); Blood Urea Nitrogen 17 mg/dL (9-20); Non-African American GFR(CKD) 88 (>60 ml/min/1.73 sqM)
--- NOTE | 2024-03-25 11:14 | CT ---
EXAMINATION TYPE: CT angio head neck DATE OF EXAM: 03/25/2024 HISTORY: frequent ROTHMAN COMPARISON: None CT DLP: 1614.2 mGycm. Automated Exposure Control for Dose Reduction was Utilized. TECHNIQUE: CTA scan of the head and neck is performed without and with IV Contrast, patient injected with 65 mL of Isovue 370, axial images are obtained, coronal and sagittal reformatted images are rev iewed. 3D reconstructed images are created on an independent workstation and reviewed. FINDINGS: There are moderate scattered calcified plaques involving the brachiocephalic origins, carotid bifurca tions cavernous and petrous segments of the internal carotid arteries. The brachiocephalic origins are widely patent and no significant stenosis. There is a greater than 70% stenosis of the proximal right internal carotid artery. There is an appro ximate 50-60% stenosis of the left internal carotid artery. Intracranially, there is no stenosis, segmental occlusion, sizable aneurysm sac or vascular malformat ion. IMPRESSION:. 1. Greater than 70% stenosis of the proximal right internal carotid artery. 2. Moderate 50-60% stenosis of left internal carotid artery. 3. No significant stenosis intracranially. No sizable aneurysm sac or vascular malformation intracran ially. NASCET criteria was used in interpretation of this exam?
== END | disposition home or self-care (01) ==
LOC: RADCTMAIN 07:42
PROVIDERS: ATTEND Psychiatry & Neurology Neurology
DX: R51.9 Headache, unspecified (principal); I65.23 Occlusion and stenosis of bilateral carotid arteries; M54.12 Radiculopathy, cervical region; Z13.9 Encounter for screening, unspecified; Z79.899 Other long term (current) drug therapy
CPT/HCPCS: 82565; 84520; 70496; 70498; 36415; Q9967

== ENCOUNTER → 2024-06-09 | Outpatient (CLI) | payer MEDICARE, BC ==
[2024-06-10 02:50] LABS: HCT 39.1 % (39.6-50.0); HGB 12.5 g/dL (13.0-17.0); MCH 34.4 pg (27.0-32.0); MCV 107.7 FL (80.0-97.0); Mean Platelet Volume 10.8 FL (9.5-12.2); NRBC Per 100 WBC 0 X 10*3/uL (0.00-0.01); Platelet Count 221 X 10*3/uL (140-440); RBC 3.63 X 10*6/uL (4.40-5.60); RDW 14.6 % (11.5-14.5); WBC 6.17 X 10*3/uL (4.50-10.00)
[2024-06-10 03:39] LABS: Basophils # (A) 0.01 X 10*3/uL (0.00-0.10); Basophils % (A) 0.2 %; Eosinophils # (A) 0.04 X 10*3/uL (0.04-0.35); Eosinophils % (A) 0.6 %; Lymphocytes % (A) 21.1 %; Macrocytosis (M) 2+; Monocytes # (A) 0.91 X 10*3/uL (0.20-1.00); Monocytes % (A) 14.7 %; Neutrophils # (A) 3.88 X 10*3/uL (1.80-7.70); Neutrophils % (A) 62.9 %
[2024-06-10 04:34] LABS: Blood Urea Nitrogen 18.7 mg/dL (9.0-27.0); Calcium 9.5 mg/dL (8.7-10.3); Carbon Dioxide 27.1 mmol/L (21.6-31.8); Chloride 103 mmol/L (96-109); Glucose 91 mg/dL (70-110); Potassium 4.7 mmol/L (3.5-5.5); Sodium 141 mmol/L (135-145)
== END | disposition home or self-care (01) ==
LOC: LABWHC1 15:27
PROVIDERS: ATTEND Urology
DX: Z01.812 Encounter for preprocedural laboratory examination (principal); C61 Malignant neoplasm of prostate
CPT/HCPCS: 36415; 80048; 85025; 86850; 86900; 86901

== ENCOUNTER 2024-06-17 05:49 | Day surgery (SDC) | payer MEDICARE, BC ==
[2024-06-10 16:18] VITALS: BMI 33.3
[~2024-06-17 05:49] MED LIST changes: -ALPRAZolam 0.25 MG TAB PO PRN; -ALPRAZolam 0.5 MG TAB PO PRN; -ASPIRIN 325 MG TAB PO STA; -ATORVASTATIN 80 MG TAB PO STA; -HEPARIN SODIUM,PORCINE 10,000 UNIT in SODIUM CHLORIDE 0.9% 1,000 ML IRRIGATION PRN; -HEPARIN SODIUM,PORCINE 2,500 UNIT in SODIUM CHLORIDE 0.9% 250 ML IRRIGATION PRN; +HEPARIN SODIUM,PORCINE 5,000 UNIT/ML 1 ML VIAL SQ PRN; -NITROGLYCERIN SL TABS 0.4 MG TAB SUBLINGUAL PRN; -SODIUM CHLORIDE 0.9% 1,000 ML in EMPTY BAG 1 BAG IV SCH
[2024-06-17] MEDS ORDERED: LIDOCAINE 1% (10MG/ML) FOR IV START INTRADERMA PRN (05:51)
[2024-06-17] MEDS ORDERED: fentaNYL (PF) 50 MCG/ML 2 ML AMP IVP PRN (05:51)
[2024-06-17] MEDS: IV FLUID CONTINUATION 1,000 ML IV ONE ×3 (06:49→17:24)
[2024-06-17] MEDS: DEXAMETHASONE SOD PHOSPHATE 4 MG/ML 1 ML VIAL IV ONE (07:01)
[2024-06-17] MEDS: ONDANSETRON 4 MG/2 ML VIAL IVP ONE (07:01)
[2024-06-17] MEDS: LACTATED RINGERS 1,000 ML IV SCH (07:02)
--- NOTE | 2024-06-17 08:05 | P.HPIHPCON ---
History of Present Illness H&P Date: 06/17/24 Chief Complaint: Prostate cancer This is a 69-year-old male with history of [place] 7 prostate cancer. Option of radiation therapy versus a robotic prostatectomy was discussed with him in detail. Risk benefit of each approach were discussed. He agreed to proceed with a robotic radical prostatectomy, aware the risk which includes but not limited to bleeding, infection, urinary incontinence, erectile dysfunction. Discussed also risk of injury to nearby organs, risk of cancer recurrence and the potential need for additional treatment was also discussed. Consent for Procedure: I have explained the operation/procedure to the patient, including the risks, benefits, side effects, alternative therapies (including not receiving the proposed treatment or service), the likelihood of the patient achieving his/her goals, and potential recuperation problems for the procedure/sedation/analgesia, as well as any blood products, if indicated. I also explained to the patient the risks, benefits and side effects of the alternatives, as well as the risks related to not receiving the proposed procedure, care, treatment, or services. 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 Hearth cath with stents-pt states total 13 stents, Past Anesthesia/Blood Transfusion Reactions: No Reported Reaction Additional Past Anesthesia/Blood Transfusion Reaction / Comment(s): . Date of Last Stent Placement:: January 14/2018 Additional Psychological History / Comment(s): denies Past Alcohol Use History: Occasional Additional Past Alcohol Use History / Comment(s): QUIT SMOKING 1993, smoked for 15 yrs, 3 PPD - Past Family History Mother Family Medical History: Cancer Additional Family Medical History / Comment(s): breast CA Father Family Medical History: Hypertension Additional Family Medical History / Comment(s): "heart issues" Brother(s) Family Medical History: Cancer Additional Family Medical History / Comment(s): one brother had prostate CA. one brother passed from mesothelioma Sister(s) Family Medical History: Cancer Additional Family Medical History / Comment(s): lymphoma Medications and Allergies Home Medications Medication Instructions Recorded Confirmed Type Isosorbide Mononitrate [Imdur] 120 mg PO BID 02/23/14 06/10/24 History Losartan [Cozaar] 50 mg PO QAM 02/23/14 06/17/24 History Rosuvastatin Calcium [Crestor] 40 mg PO HS 02/23/14 06/10/24 History Aspirin EC [Ecotrin Low Dose] 81 mg PO DAILY #30 tablet. 08/16/15 06/10/24 Rx Nitroglycerin Sl Tabs [Nitrostat] 0.4 mg SUBLINGUAL Q5M PRN #25 tab 08/16/15 06/17/24 Rx hydroCHLOROthiazide [Hydrodiuril] 12.5 mg PO DAILY 02/03/17 06/17/24 History Ranolazine [Ranexa] 1,000 mg PO BID 09/10/17 06/10/24 History amLODIPine [Norvasc] 5 mg PO BID 09/10/17 06/10/24 History Hydrocodone/Acetaminophen 1 tab PO QID PRN 01/14/18 06/17/24 History [Hydrocodone/Acetaminophen 10-325] methocarbamoL [Robaxin-750] 750 mg PO QID 02/10/20 06/10/24 History Gabapentin 600 mg PO TID 08/23/20 06/10/24 History Lidocaine 5% Patch [Lidoderm 5% 1 patch TOPICAL DAILY 08/23/20 06/17/24 History Patch] Metoprolol Tartrate [Lopressor] 25 mg PO BID 04/04/23 06/10/24 History Allergies Allergy/AdvReac Type Severity Reaction Status Date / Time adhesive Allergy Rash/Hives, Verified 06/17/24 06:21 RED SKIN ezetimibe [From Zetia] Allergy "FELT Verified 06/17/24 06:21 WEIRD AND SICK" Surgical - Exam Vital Signs Temp Pulse Resp BP Pulse Ox 97.7 F 60 18 144/69 96 06/17/24 06:22 06/17/24 06:22 06/17/24 06:22 06/17/24 06:22 06/17/24 06:22 - General no distress, no pain - Eyes normal ocular movement, no pale - ENT normal nares, normal mucosa - Respiratory normal expansion, normal respiratory effort Assessment and Plan Assessment: OR for robotic radical prostatectomy
[2024-06-17] MEDS ORDERED: NITROGLYCERIN SL TABS 0.4 MG TAB SUBLINGUAL PRN (08:25)
[2024-06-17] MEDS: fentaNYL (PF) 50 MCG/ML 2 ML AMP IVP ONE (11:36)
[2024-06-17] MEDS: MIDAZOLAM 2 MG/2 ML VIAL IV PRN (12:26)
[2024-06-17] MEDS ORDERED: ONDANSETRON 4 MG/2 ML VIAL ONE (13:25)
[2024-06-17] MEDS ORDERED: fentaNYL (PF) 50 MCG/ML 2 ML AMP ONE (13:25)
[2024-06-17] MEDS ORDERED: ROCURONIUM 10 MG/ML (5 ML VIAL) IV ONE (13:25)
[2024-06-17] MEDS ORDERED: ETOMIDATE 2 MG/ML 10 ML VIAL ONE (13:25)
[2024-06-17] MEDS ORDERED: ROPIVACAINE 5 MG/ML 30 ML VIAL ONE (13:25)
[2024-06-17] MEDS ORDERED: NEOSTIGMINE 1 MG/ML 10 ML VIAL ONE (13:25)
[2024-06-17] MEDS ORDERED: HEPARIN SODIUM,PORCINE 5,000 UNIT/ML 1 ML VIAL ONE (13:25)
[2024-06-17] MEDS ORDERED: SUCCINYLCHOLINE CHLORIDE 200 MG/10 ML VIAL IV ONE (13:25)
[2024-06-17] MEDS ORDERED: PROPOFOL 10 MG/ML 20 ML VIAL IV ONE (13:25)
[2024-06-17] MEDS ORDERED: LIDOCAINE 1% INJ 10MG/ML (20 ML MDV) ONE (13:25)
[2024-06-17] MEDS ORDERED: SODIUM CHLORIDE 0.9% (PF) 10 ML VIAL ONE (13:25)
[2024-06-17] MEDS ORDERED: HYDROmorphone (PF) 1 MG/ML ONE (13:25)
[2024-06-17] MEDS ORDERED: DEXAMETHASONE SOD PHOSPHATE 4 MG/ML 1 ML VIAL ONE (13:25)
[2024-06-17] MEDS ORDERED: GLYCOPYRROLATE 0.2 MG/ML 2 ML VIAL ONE (13:25)
[2024-06-17] MEDS: BUPIVACAINE (PF) 0.25% 30 ML VIAL SQ ONE ×2 (13:30→16:08)
--- NOTE | 2024-06-17 16:08 | P.OP ---
Date of Procedure: 06/17/24 Preoperative Diagnosis: Prostate cancer Postoperative Diagnosis: Same Procedure(s) Performed: Robotic assisted laparoscopic radical prostatectomy Implants: None Anesthesia: MERLIN Surgeon: Ari Marques Estimated Blood Loss (ml): 100 Pathology: other (Prostate and bilateral seminal vesicles) Condition: stable Disposition: PACU Indications for Procedure: This is a 69-year-old male with history of [place] 7 prostate cancer. Option of radiation therapy versus a robotic prostatectomy was discussed with him in detail. Risk benefit of each approach were discussed. He agreed to proceed with a robotic radical prostatectomy, aware the risk which includes but not limited to bleeding, infection, urinary incontinence, erectile dysfunction. Discussed also risk of injury to nearby organs, risk of cancer recurrence and the potential need for additional treatment was also discussed. Description of Procedure: After preoperative antibiotics were started, the patient was taken to the operating room. Anesthesia was induced and the patient was placed in a supine position, with adequate padding of the pressure points, shoulders, back, legs and arms. He was then prepped and draped in the standard fashion. A critical pause was performed using two patient identifiers. A 16F bates catheter was placed to gravity drainage. A pneumo-peritoneum was created with placement of a Veress needle to 20 mm Hg without complication, and a 8 Fr trocar was placed above the umbillicus. Under direct vision a 8mm robotic ports was placed lateral to each rectus slightly below the camera port. The left iliac fossa 8mm port was placed. The right retail store assistant right iliac fossa 12mm port and right paramedian 5mm portwere placed. After the patient was placed in the trendelenberg position, the robot was then docked to the 8mm robotic ports and then each robotic arm and tower was checked in relation to the patient's legs and hands to avoid inadvertent compression. The peritoneal cavity was inspected. An inverted U-shaped incision began laterally to the left medial umbilical ligament and extended high across the midline to the right umbilical ligament. The limbs of the "U" extended to the level of the vasa on both sides. We next developed the preperitoneal space and the space of Retzius. Cautery was used to dissected the bladder away from the prostate. After the anterior bladder neck was incised and the bladder entered the the posterior bladder neck was exposed and the ureteral orifces identified. The posterior bladder neck was then incised and dissected away from the prostate. The vas and the seminal vesicles were now exposed and dissected to their insertions into the prostate and were not spared. The posterior layer of the Denonvillier's fascia was incised to enter watson the plane between prostate and perirectal fat. Each lateral pedicle was controlled with vessel sealer. Partial nerve preservation was performed bilaterally. The puboprostatic ligament was incised where it inserted into the apex of the prostate and a plane between urethra and dorsal venous complex developed to expose the anterior urethral surface. The anterior wall of the urethra was transected with the cut setting a few millimeters distal to the apex of the prostate. The dorsal vein was ligated using 3-0 V lock The urethrovesical anastomosis was performed . the posterior denovillers was reapproximated using 3-0 V lock. A 6 and 6 inch 3-0 V-Lock suture was used to anastomose the urethra and bladder, starting at the 6:00 posterior position. Mucosa was secured in every stitch, to ensure a mucosa to mucosa anastomosis. The stitch was regularly cinched and the anastomosis tightened. Care was taken to not violate the ureteral orifices. The Bates catheter was advanced, the bladder filled, and the anastomosis was tested, as described above. Anastomsis was watertight at 150 mL The periumbilical fascia was closed with 1-0-PDS suture in figure of eight rfashion. All ports were closed with a subcuticular 4-0 monocryl and Dermabond. Sponge, instrument, and needle counts were correct at the end of the case x2. All specimens including prostate were sent to pathology for diagnosis and will be available in a week. The patient tolerated the surgery well and without complication. He awoke without difficulty and was taken to the recovery room in stable condition
[2024-06-17] MEDS: HYDROmorphone 0.5 MG/0.5 ML SYRINGE IVP PRN (16:35)
[2024-06-17] MEDS: KETOROLAC 15 MG/ML 1 ML VIAL IVP SCH (18:31)
[2024-06-17] MEDS: DEXTROSE 5%-0.45% NACL 1,000 ML IV SCH (18:34)
--- NOTE | 2024-06-17 19:29 | P.ANPRN ---
Procedure Note - Anesthesia - Nerve Block Performed Bilateral Erector Spinae Single Time Out Performed: Yes Date of Procedure: 06/17/24 Procedure Start Time: : Procedure Stop Time: Location of Patient: PreOp Indication: Acute Post-Operative Pain, Requested by Surgeon Sedation Type: Sedate with meaningful contact maintained Preparation: Sterile Prep Position: Prone Needle Types: Pajunk Needle Gauge: 21 Ultrasound used to visualize needle placement: Yes Ultrasound used to observe medication spread: Yes Blood Aspirated: No Pain Paresthesia on Injection Noted: No Resistance on Injection: Normal Image Stored and Saved: Yes Events: Uneventful and Well Tolerated (Ropivacaine 0.5% 15 cc plus normal saline 10 cc plus dexamethasone 4 mg given bilaterally at L1)
--- NOTE | 2024-06-17 19:34 | P.ANPRN ---
Procedure Note - Anesthesia - Invasive Line Right Arterial Line Time Out Performed: Yes Date of Procedure: 06/17/24 Time of Procedure: 13:04 Location of Patient: PreOp Preparation: Sterile Prep, Sterile Dressing Arterial Line Location: Radial Ultrasound Used: No Purpose - Visualization and Identification of Vasculature: No Narrative: Invasive line placement per sterile protocol utilized.
[2024-06-17] MEDS: GABAPENTIN 300 MG CAP PO SCH (20:20)
[2024-06-17] MEDS: METOPROLOL TARTRATE 25 MG TAB PO SCH (20:20)
[2024-06-17] MEDS: ISOSORBIDE MONONITRATE ER 60 MG TAB.ER.24H PO SCH (20:20)
[2024-06-17] MEDS: amLODIPine 5 MG TAB PO SCH (20:21)
[2024-06-17] MEDS: ATORVASTATIN 80 MG TAB PO SCH (20:21)
[2024-06-17] MEDS: HYDROmorphone 1 MG/ML 1 ML SYRINGE IVP PRN (20:21)
[2024-06-17] MEDS: methocarbamoL 750 MG TAB PO SCH (20:22)
[2024-06-17] MEDS: RANOLAZINE 500 MG TAB.ER.12H PO SCH (20:22)
[2024-06-17] MEDS: HEPARIN SODIUM,PORCINE 5,000 UNIT/ML 1 ML VIAL SQ SCH (23:43)
[2024-06-18 07:22] VITALS: BP 125/64; PULSE 71; RESP 18; TEMP 97.3
--- NOTE | 2024-06-18 08:15 | P.DS ---
Providers Attending physician: Ari Marques MD Primary care physician: [facility] Course: the patient is 69 with prostate cancer. He was admitted to the hospital 06/17 2024 by for a robotic-assisted radical prostatectomy. He underwent that and there were no problems. Postoperatively did well. His pain was controlled. He is tolerating his diet. His urine is clear. His abdomen is soft. He wishes to go home. He has Alborn at home. He will take Tylenol or Mot rin or Alborn for pain. He'll be instructed in catheter care. He'll follow-up with on 06/28/24 for postoperative care and biopsy report. Condition is good. Patient Condition at Discharge: Good Plan - Discharge Summary Discharge Rx Participant: No New Discharge Prescriptions: No Action Losartan [Cozaar] 50 mg PO QAM Rosuvastatin Calcium [Crestor] 40 mg PO HS Isosorbide Mononitrate [Imdur] 120 mg PO BID Aspirin EC [Ecotrin Low Dose] 81 mg PO DAILY #30 tablet. Nitroglycerin Sl Tabs [Nitrostat] 0.4 mg SUBLINGUAL Q5M PRN #25 tab PRN Reason: Chest Pain hydroCHLOROthiazide [Hydrodiuril] 12.5 mg PO DAILY Ranolazine [Ranexa] 1,000 mg PO BID amLODIPine [Norvasc] 5 mg PO BID Hydrocodone/Acetaminophen [Hydrocodone/Acetaminophen 10-325] 1 tab PO QID PRN PRN Reason: Pain methocarbamoL [Robaxin-750] 750 mg PO QID Lidocaine 5% Patch [Lidoderm 5% Patch] 1 patch TOPICAL DAILY Gabapentin 600 mg PO TID Metoprolol Tartrate [Lopressor] 25 mg PO BID Discharge Medication List Isosorbide Mononitrate [Imdur] 120 mg PO BID 02/23/14 [History] Losartan [Cozaar] 50 mg PO QAM 02/23/14 [History] Rosuvastatin Calcium [Crestor] 40 mg PO HS 02/23/14 [History] Aspirin EC [Ecotrin Low Dose] 81 mg PO DAILY #30 tablet. 08/16/15 [Rx] Nitroglycerin Sl Tabs [Nitrostat] 0.4 mg SUBLINGUAL Q5M PRN #25 tab 08/16/15 [Rx] hydroCHLOROthiazide [Hydrodiuril] 12.5 mg PO DAILY 02/03/17 [History] Ranolazine [Ranexa] 1,000 mg PO BID 09/10/17 [History] amLODIPine [Norvasc] 5 mg PO BID 09/10/17 [History] Hydrocodone/Acetaminophen [Hydrocodone/Acetaminophen 10-325] 1 tab PO QID PRN 01/14/18 [History] methocarbamoL [Robaxin-750] 750 mg PO QID 02/10/20 [History] Gabapentin 600 mg PO TID 08/23/20 [History] Lidocaine 5% Patch [Lidoderm 5% Patch] 1 patch TOPICAL DAILY 08/23/20 [History] Metoprolol Tartrate [Lopressor] 25 mg PO BID 04/04/23 [History] Follow up Appointment(s)/Referral(s): Ari Marques MD [STAFF PHYSICIAN] - 06/28/24 (home w bates, leg and bed bag) Discharge Disposition: HOME SELF-CARE
[2024-06-18] MEDS: hydroCHLOROthiazide 12.5 MG CAP PO SCH (08:45)
[2024-06-18] MEDS: LOSARTAN 50 MG TAB PO SCH (08:45)
[2024-06-18] MEDS: LIDOCAINE 4% PATCH TOPICAL SCH (08:46)
== END 2024-06-18 10:17 | disposition home or self-care (01) ==
LOC: OR 05:49 → 4SSUR 16:12 → OR 06-18 10:17
PROVIDERS: ATTEND Urology
DX: C61 Malignant neoplasm of prostate
CPT/HCPCS: 64999; 88309

== ENCOUNTER → 2024-07-15 | Outpatient (CLI) | payer MEDICARE, BC ==
--- NOTE | 2024-07-15 14:56 | CT ---
EXAMINATION TYPE: CT shoulder LT wo con DATE OF EXAM: 07/15/2024 COMPARISON: None HISTORY: pre op left shoulder sx. CT DLP: 512.90 mGycm Automated exposure control for dose reduction was used. FINDINGS: There is mild superior subluxation of the glenohumeral joint and hypertrophic spurring of the humeral head bony acetabulum. The AC joint is grossly intact . There is a small os acromiale IMPRESSION: 1. SMALL OS ACROMIALE. 2. DEGENERATIVE CHANGE OF THE GLENOHUMERAL JOINT WITH SUPERIOR SUBLUXATION DESCRIBED ABOVE. 3. NO ACUTE FRACTURE [facility], Workstation: [facility], 07/15/2024 12:19 PM
== END | disposition home or self-care (01) ==
LOC: RADCTMAIN 11:50
PROVIDERS: ATTEND Orthopaedic Surgery Sports Medicine

== ENCOUNTER → 2024-07-15 | Outpatient (CLI) | payer MEDICARE, BC ==
[2024-07-15 14:28] LABS: Partial Thromboplastin Time 23.6 sec (22.0-30.0); Prothrombin Time 10.7 sec (10.0-12.5)
[2024-07-15 18:39] LABS: Basophils # (A) 0.04 X 10*3/uL (0.00-0.10); Basophils % (A) 0.4 %; Eosinophils # (A) 0.04 X 10*3/uL (0.04-0.35); Eosinophils % (A) 0.4 %; HCT 34.3 % (39.6-50.0); HGB 11.5 g/dL (13.0-17.0); Lymphocytes # (A) 1.24 X 10*3/uL (0.90-5.00); Lymphocytes % (A) 12.7 %; MCH 35.4 pg (27.0-32.0); MCHC 33.5 g/dL (32.0-37.0); MCV 105.5 FL (80.0-97.0); Mean Platelet Volume 10.7 FL (9.5-12.2); Monocytes # (A) 1.16 X 10*3/uL (0.20-1.00); Monocytes % (A) 11.9 %; NRBC Per 100 WBC 0.02 X 10*3/uL (0.00-0.01); Neutrophils # (A) 7.21 X 10*3/uL (1.80-7.70); Neutrophils % (A) 73.9 %; Platelet Count 265 X 10*3/uL (140-440); RBC 3.25 X 10*6/uL (4.40-5.60); RDW 14.4 % (11.5-14.5); WBC 9.76 X 10*3/uL (4.50-10.00)
[2024-07-15 20:29] LABS: ALT 25 U/L (10-49); AST 22 U/L (14-35); Albumin 4.3 g/dL (3.8-4.9); Albumin/Globulin Ratio 1.95 Ratio (1.60-3.17); Alkaline Phosphatase 85 U/L (41-126); Blood Urea Nitrogen 16.5 mg/dL (9.0-27.0); Calcium 9.5 mg/dL (8.7-10.3); Carbon Dioxide 24.6 mmol/L (21.6-31.8); Chloride 102 mmol/L (96-109); Globulin 2.2 g/dL (1.6-3.3); Glucose 91 mg/dL (70-110); Potassium 4.8 mmol/L (3.5-5.5); Sodium 140 mmol/L (135-145); Total Bilirubin 0.5 mg/dL (0.3-1.2); Total Protein 6.5 g/dL (6.2-8.2)
== END | disposition home or self-care (01) ==
LOC: LABPAT 12:27
PROVIDERS: ATTEND Orthopaedic Surgery Sports Medicine
CPT/HCPCS: 80053; 85025; 85610; 85730; 87070

== ENCOUNTER 2024-08-12 06:44 | Day surgery (SDC) | payer MEDICARE, BC ==
[2024-08-06 10:33] VITALS: BMI 34.9
[~2024-08-12 06:44] MED LIST changes: +GABAPENTIN 300 MG CAP PO PRN; -HEPARIN SODIUM,PORCINE 5,000 UNIT/ML 1 ML VIAL SQ PRN; +LIDOCAINE 1% (10MG/ML) FOR IV START INTRADERMA PRN; +ONDANSETRON 4 MG/2 ML VIAL IVP PRN; +TRANEXAMIC 1,000 MG/100ML-NACL 1,000 MG in SALINE 1 100ML.BAG IVPB PRN
[2024-08-12] MEDS: MELOXICAM 7.5 MG TAB PO PRN (07:35)
[2024-08-12] MEDS: ACETAMINOPHEN TAB 500 MG TAB PO PRN (07:35)
[2024-08-12] MEDS: LACTATED RINGERS 1,000 ML IV SCH ×2 (07:47→19:37)
[2024-08-12] MEDS: ONDANSETRON 4 MG/2 ML VIAL IVP ONE (07:47)
[2024-08-12] MEDS: DEXAMETHASONE SOD PHOSPHATE 4 MG/ML 1 ML VIAL IVP STA (07:49)
[2024-08-12] MEDS: IV FLUID CONTINUATION 1,000 ML IV ONE (07:52)
[2024-08-12] MEDS: MIDAZOLAM 2 MG/2 ML VIAL IV ONE (08:14)
[2024-08-12] MEDS ORDERED: diphenhydrAMINE 25 MG CAP PO PRN (08:28)
[2024-08-12] MEDS ORDERED: HYDROmorphone 0.5 MG/0.5 ML SYRINGE IVP PRN ×2 (08:28)
[2024-08-12] MEDS ORDERED: ONDANSETRON 4 MG/2 ML VIAL IVP PRN (08:28)
[2024-08-12] MEDS ORDERED: oxyCODONE-APAP 7.5-325MG 1 EACH TAB PO PRN (08:38)
[2024-08-12] MEDS ORDERED: DEXAMETHASONE SOD PHOSPHATE 4 MG/ML 1 ML VIAL ONE (08:55)
[2024-08-12] MEDS ORDERED: LIDOCAINE 1% INJ 10MG/ML (20 ML MDV) ONE (08:55)
[2024-08-12] MEDS ORDERED: TRANEXAMIC 1,000 MG/100ML-NACL PREMIX BAG ONE (08:55)
[2024-08-12] MEDS ORDERED: GLYCOPYRROLATE 0.2 MG/ML 2 ML VIAL ONE (08:55)
[2024-08-12] MEDS ORDERED: PROPOFOL 10 MG/ML 20 ML VIAL IV ONE (08:55)
[2024-08-12] MEDS ORDERED: PHENYLEPHRINE 10 MG/ML VIAL ONE (08:55)
[2024-08-12] MEDS ORDERED: VASOPRESSIN 20 UNIT/ML 1 ML VIAL ONE (08:55)
[2024-08-12] MEDS ORDERED: fentaNYL (PF) 50 MCG/ML 2 ML AMP ONE (08:55)
[2024-08-12] MEDS ORDERED: SUCCINYLCHOLINE CHLORIDE 200 MG/10 ML VIAL IV ONE (08:55)
[2024-08-12] MEDS ORDERED: ROPIVACAINE 5 MG/ML 30 ML VIAL ONE (08:55)
[2024-08-12] MEDS ORDERED: ePHEDrine 50 MG/ML 1 ML VIAL ONE (08:55)
[2024-08-12] MEDS: ceFAZolin 1,000 MG in SODIUM CHLORIDE 0.9% 1,000 ML IRRIGATION ONE (09:33)
[2024-08-12] MEDS: VANCOMYCIN 1,000 MG VIAL MISCELLANE ONE (10:25)
--- NOTE | 2024-08-12 11:43 | XR ---
EXAMINATION TYPE: XR shoulder limited LT DATE OF EXAM: 08/12/2024 11:34 AM COMPARISON: None. CLINICAL INDICATION: Male, 69 years old with history of post op, TECHNIQUE: AP view(s) obtained. FINDINGS: There is placement of a left shoulder prosthesis. No acute fractures evident. Postsurgical soft tissu e changes are evident. IMPRESSION: 1. No acute osseous abnormality post left shoulder prosthesis. [facility], , 08/12/2024 11:40 AM
--- NOTE | 2024-08-12 11:50 | OP ---
OPERATIVE REPORT DATE OF SERVICE : 08/12/2024 FINANCIAL SERVICES AGENT: Spenser Gaitan PA-C. PREOPERATIVE DIAGNOSIS: Left shoulder osteoarthrosis. POSTOPERATIVE DIAGNOSES: 1. Left shoulder osteoarthrosis. 2. Left shoulder chronic rotator cuff tear. PROCEDURE PERFORMED: Left reverse total shoulder arthroplasty. ANESTHESIA: General endotracheal. ESTIMATED BLOOD LOSS: 100 mL. DRAINS: None. COMPLICATIONS: None apparent. DISPOSITION: Postanesthesia care unit. INDICATIONS: Evin is a very pleasant 69-year-old male with longstanding left shoulder pain. Workup including x-rays revealed advanced osteoarthrosis of the left shoulder. At this point, it is felt he has failed conservative management, and he would like to proceed with operative intervention. The risks of procedure were discussed with him in detail. These risks include, but are not limited to risk of infection, nerve damage, bleeding, pain, instability in the shoulder, loosening of the implants, and deep infection. There is also small risk of deep vein thrombosis, which could lead to fatal pulmonary embolism. The patient understood these risks. All of his questions with regard to the risks of procedure were answered to his satisfaction. Appropriate informed consent was obtained. DESCRIPTION OF PROCEDURE: The patient was identified in preoperative holding area. Surgical site was marked by both the patient and myself. He was given 2 g of Ancef IV for prophylactic purposes. He was then transported to the operative suite. He was placed supine on the operating room table. General anesthetic was then administered, dosed per the Anesthesia without apparent complication. An examination under anesthesia was then performed of the left shoulder. He had elevation of 120 degrees. External rotation to the side was 30 degrees. The patient was then placed in the beach chair position, well-padded in preparation for surgery. Great care was taken to ensure that the cervical spine was in neutral alignment, well-padded, and maintained that way throughout the operative procedure. Great care was also taken to ensure that his legs were appropriately padded as well. The patient's left upper extremity was then prepped and draped in usual sterile fashion. Standard surgical pause was undertaken to ensure that we were operating the correct site and appropriate preoperative antibiotics were given. All staff were in agreement, and we proceeded. The acromion, AC joint, clavicle, and coracoid were marked with a surgical pen. A planned incision starting above the clavicle and extending distally over the deltopectoral interval approximately 1 cm lateral to the coracoid was marked with a surgical pen. An incision was then made with a 10-blade scalpel. Dissection was carried down sharply to the deltoid fascia. The deltopectoral interval was then identified at the level of the clavicle. A small band retractor was then placed onto the proximal deltoid. I then released the deltoid fascia on the lateral aspect of the cephalic vein. The vein was then left in its bed medially. The cephalic vein was protected throughout the entire case. I then identified the clavipectoral fascia. This was incised proximally to the level of the coracoacromial ligament. The coracoacromial ligament was then left intact. We then used my finger to spread the interval between the conjoint tendon and the subscapularis. I felt for the axillary nerve, which was readily palpable. I then cleared the subacromial and subdeltoid spaces of bursal and scar tissue. I then utilized a Kumar retractor to hold the deltoid and expose the humeral head. I then proceeded to divide the rotator cuff. A fairly large chronic supraspinatus tear. The rotator interval was identified. The course of the biceps tendon was also identified. I then released the biceps and tenodesed it utilizing 0 Vicryl interrupted suture to the soft tissue and the proximal bicipital groove. I then released the rotator interval. It was released at the base of the coracoid and then out laterally. The subscapularis and capsule were then released intertendinously. The subscapularis and capsule release extended distally in a lazy-S fashion approximately 1 cm medial to the bicipital groove. I then continued to release the capsule along the inferior neck in a vertical fashion to approximately the 6 o'clock position. Great care was taken to ensure the capsule was always visualized as it was released as to avoid injuring the axillary nerve root. I then brought a Guzmán computer terminal operator with the arm externally rotated and abducted. I continued to release the capsule inferomedially to the 4 o'clock position. Inferior osteophytes were now removed as well. This was done with a rongeur. I then proceeded with preparation of the humerus. I removed all the goat's hartley osteophytes. I then removed the subchondral plate from the superior aspect of the humeral head utilizing a large rongeur. I then used a starting reamer to gain access to the humeral canal. This was approximately 1 cm medial to the rotator cuff insertion and 1 cm posterior to the bicipital groove. I then prepared the humeral canal with hand reaming. I started with a 6 mm reamer and incrementally increased until firm resistance was encountered. This was at 12 mm. The reamer handle was then left in place. Then, utilized a humeral resection guide, set at 30 degrees of retrotorsion. The cutting block was then set at the previous insertion of rotator cuff. I then proceeded to osteotomize the humeral head with an oscillating saw. I removed the resection guide and then completed the osteotomy. I then proceeded with trial stem placement. I broached starting with a 10 mm broach up to a size 12 mm broach. The 12 mm trial stem was then left in place. The joint was then inspected. No loose bodies noted. The arm was then placed onto the Guzmán computer terminal operator approximately 80 degrees of abduction and in slight flexion. The Bhattman retractor was then placed on the posterior glenoid rim. I then released the biceps tendon. This tenotomized at the level of superior labrum. I then excised the labrum circumferentially the glenoid fossa. I had the mini base plate guide. This was placed slightly inferior in the center of the glenoid. The pin was placed approximately 10 degrees of inferior tilt. I then proceeded to ream the glenoid. This was done with the mini base plate reamer. Minimal reaming was done as possible as to preserve as much subchondral bone as possible. Then, I placed the small augment mini baseplate guide. This seemed to give a nice fit. I then had the Clickslidemer outside sales account representative open a small augment mini baseplate. The augment was placed posterior superior. This was then impacted into the real glenoid. The guide pin was removed. I then measured for length, and a 30 mm central screw was placed. The screw had excellent purchase in bone. I was able to rotate the scapula through the screwdriver when it was fully seated. I then proceeded to place the peripheral locking screws. The inferior screw was 20 mm screw. The anterior, posterior, and superior screws were 15 mm locking screws. The wound was again thoroughly irrigated with sterile saline solution with antibiotic added via pulse lavage. I had the outside sales account representative open a 36 mm standard 36 mm glenosphere. It was slightly offset inferiorly. The Maldonado taper was dried, and the real glenosphere was impacted onto the baseplate. I then proceeded with trialing. We started with a standard tray and a standard poly. It was a mildly difficult reduction. It was very stable throughout a full range of motion. No impingement was noted. I then made a decision to proceed with the standard tray and standard poly. The shoulder was then very carefully re-dislocated. I had the outside sales account representative open a size 12 mini stem, a standard tray, and a standard poly. The stem was then impacted into the proximal humerus approximately in 30 degrees of retrotorsion. The baseplate and poly were assembled on the back table and then impacted onto a dry Maldonado taper. The shoulder was again reduced. Again, it was a mildly difficult reduction. It was stable throughout a full range of motion. There was no impingement noted. The conjoint tendon did not have any undue tension. I also felt for the axillary nerve at this point, which was readily palpable and intact. The wound was again thoroughly irrigated. We utilized the IrriSept antiseptic solution at this point in time. I then provisionally closed the deltopectoral interval with 0 Vicryl interrupted suture. Prior to that, approximately 500 mg of vancomycin powder was placed deep. The subcutaneous tissue was again thoroughly irrigated with sterile saline solution with antibiotic added via pulse lavage. The remaining 500 mg of vancomycin powder were then placed subcutaneously. Subcutaneous tissue was closed with 2-0 Vicryl interrupted suture. The subcuticular layer was closed with 3-0 Quill suture. Dermabond was applied to the incision. Sterile dressings were applied, and the patient's left upper extremity was placed into a standard sling. All sponge and needle counts were deemed correct prior to closure. The patient tolerated the procedure without apparent complication. He was transferred to the recovery room in stable condition. MMODL / IJN: [id number] /
[2024-08-12] MEDS: HYDROmorphone 0.5 MG/0.5 ML SYRINGE IVP PRN ×2 (14:17→17:35)
[2024-08-12] MEDS: droPERidol 5 MG/2 ML VIAL IVP ONE (16:27)
[2024-08-12] MEDS ORDERED: NITROGLYCERIN SL TABS 0.4 MG TAB SUBLINGUAL PRN (17:49)
[2024-08-12] MEDS ORDERED: diphenhydrAMINE 50 MG CAP PO PRN (17:49)
[2024-08-12] MEDS: ATORVASTATIN 80 MG TAB PO SCH (20:22)
[2024-08-12] MEDS: ISOSORBIDE MONONITRATE ER 60 MG TAB.ER.24H PO SCH (20:22)
[2024-08-12] MEDS: methocarbamoL 750 MG TAB PO SCH (20:23)
[2024-08-12] MEDS: oxyCODONE-APAP 7.5-325MG 1 EACH TAB PO PRN (20:31)
[2024-08-12] MEDS: METOPROLOL TARTRATE 25 MG TAB PO SCH (21:39)
[2024-08-12] MEDS: GABAPENTIN 300 MG CAP PO SCH (22:56)
--- NOTE | 2024-08-13 07:20 | P.ANPRN ---
Procedure Note - Anesthesia - Nerve Block Performed Left Interscalene Single Time Out Performed: Yes Date of Procedure: 08/12/24 Procedure Start Time: : Procedure Stop Time: :18 Location of Patient: PreOp Indication: Acute Post-Operative Pain, Requested by Surgeon Sedation Type: Sedate with meaningful contact maintained Preparation: Sterile Prep Position: Supine Needle Types: Pajunk Needle Gauge: 21 Ultrasound used to visualize needle placement: Yes Ultrasound used to observe medication spread: Yes Blood Aspirated: No Pain Paresthesia on Injection Noted: No Resistance on Injection: Normal Image Stored and Saved: Yes Events: Uneventful and Well Tolerated (Ropivacaine 0.5% 20 cc plus dexamethasone 4 mg)
[2024-08-13 08:01] VITALS: BP 131/54; PULSE 81; RESP 18; TEMP 98
[2024-08-13 08:51] LABS: Basophils # (A) 0.03 X 10*3/uL (0.00-0.10); Basophils % (A) 0.2 %; Eosinophils # (A) 0 X 10*3/uL (0.04-0.35); Eosinophils % (A) 0 %; HCT 30.6 % (39.6-50.0); HGB 9.7 g/dL (13.0-17.0); Lymphocytes # (A) 0.76 X 10*3/uL (0.90-5.00); Lymphocytes % (A) 4.6 %; MCH 33.9 pg (27.0-32.0); MCHC 31.7 g/dL (32.0-37.0); Mean Platelet Volume 10.9 FL (9.5-12.2); Monocytes # (A) 1.36 X 10*3/uL (0.20-1.00); Monocytes % (A) 8.3 %; NRBC Per 100 WBC 0 X 10*3/uL (0.00-0.01); Neutrophils # (A) 14.13 X 10*3/uL (1.80-7.70); Platelet Count 207 X 10*3/uL (140-440); RBC 2.86 X 10*6/uL (4.40-5.60); RDW 15.6 % (11.5-14.5); WBC 16.43 X 10*3/uL (4.50-10.00)
[2024-08-13] MEDS: SENNOSIDES-DOCUSATE SODIUM 1 EACH TAB PO PRN (09:46)
--- NOTE | 2024-08-13 14:09 | P.DS ---
Providers Expected date of discharge: 08/13/24 Attending physician: Varinder Song Consults: 08/12/24 08:28 Consult Physician Routine Consulting Provider: Moreno Malik Consult Reason/Comments: post op medical management Do you want consulting provider notified?: Yes Primary care physician: Elliot Grande - Discharge Diagnosis(es) (1) Primary osteoarthritis of left shoulder Patient was admitted to the OR on 08/12/24 to undergo a left total shoulder arthroplasty. He had failed conservative measures as an outpatient and desired to proceed with elective surgery after given informed consent. He underwent the above procedure which he tolerated well without complication. Postoperative hospital course has remained without complication. On day of discharge he is afebrile, vital signs stable, labs within acceptable ranges, tolerating by mouth meds and diet, voiding without difficulty, positive flatus, denies abdominal pain or calf pain, pain is controlled on oral pain medication and has no new complaints. Wound is benign, neurovascular status is intact, calves are soft and nontender, abdomen soft and nontender. Review of systems is negative for numbness, tingling, fever, chills, chest pain, shortness of breath, nausea, vomiting, dizziness, headaches, slurred speech or other. Status: Acute Priority: Medium Procedures: Reverse left TSA Patient Condition at Discharge: Good Plan - Discharge Summary Discharge Rx Participant: Yes New Discharge Prescriptions: New Docusate [Colace] 100 mg PO BID #60 capsule Doxycycline Hyclate 100 mg PO BID #10 tab Ondansetron [Zofran] 4 mg PO Q8HR PRN #21 tab PRN Reason: Nausea oxyCODONE-APAP 10-325MG [Percocet 10-325 mg] 1 tab PO Q4HR PRN #42 tab PRN Reason: Pain No Action Losartan [Cozaar] 50 mg PO QAM Rosuvastatin Calcium [Crestor] 40 mg PO HS Isosorbide Mononitrate [Imdur] 120 mg PO BID Nitroglycerin Sl Tabs [Nitrostat] 0.4 mg SUBLINGUAL Q5M PRN #25 tab PRN Reason: Chest Pain hydroCHLOROthiazide [Hydrodiuril] 12.5 mg PO QAM Ranolazine [Ranexa] 1,000 mg PO BID amLODIPine [Norvasc] 5 mg PO BID Hydrocodone/Acetaminophen [Hydrocodone/Acetaminophen 10-325] 1 tab PO QID PRN PRN Reason: Pain methocarbamoL [Robaxin-750] 750 mg PO QID Lidocaine 5% Patch [Lidoderm 5% Patch] 1 patch TOPICAL QAM Gabapentin 600 mg PO TID Metoprolol Tartrate [Lopressor] 25 mg PO BID Aspirin EC [Ecotrin Low Dose] 81 mg PO QAM Tart Cheery (Unknown Dose) 1 dose PO 1200 Indomethacin [Indocin] 25 mg PO QAM diphenhydrAMINE [Benadryl] 50 mg PO HS Folic Acid(Unknown Dose) 1 dose PO QAM Discharge Medication List Isosorbide Mononitrate [Imdur] 120 mg PO BID 02/23/14 [History] Losartan [Cozaar] 50 mg PO QAM 02/23/14 [History] Rosuvastatin Calcium [Crestor] 40 mg PO HS 02/23/14 [History] Nitroglycerin Sl Tabs [Nitrostat] 0.4 mg SUBLINGUAL Q5M PRN #25 tab 08/16/15 [Rx] hydroCHLOROthiazide [Hydrodiuril] 12.5 mg PO QAM 02/03/17 [History] Ranolazine [Ranexa] 1,000 mg PO BID 09/10/17 [History] amLODIPine [Norvasc] 5 mg PO BID 09/10/17 [History] Hydrocodone/Acetaminophen [Hydrocodone/Acetaminophen 10-325] 1 tab PO QID PRN 01/14/18 [History] methocarbamoL [Robaxin-750] 750 mg PO QID 02/10/20 [History] Gabapentin 600 mg PO TID 08/23/20 [History] Lidocaine 5% Patch [Lidoderm 5% Patch] 1 patch TOPICAL QAM 08/23/20 [History] Metoprolol Tartrate [Lopressor] 25 mg PO BID 04/04/23 [History] Aspirin EC [Ecotrin Low Dose] 81 mg PO QAM 08/06/24 [History] Folic Acid(Unknown Dose) 1 dose PO QAM 08/06/24 [History] Indomethacin [Indocin] 25 mg PO QAM 08/06/24 [History] Tart Cheery (Unknown Dose) 1 dose PO 1200 08/06/24 [History] diphenhydrAMINE [Benadryl] 50 mg PO HS 08/06/24 [History] Docusate [Colace] 100 mg PO BID #60 capsule 08/13/24 [Rx] Doxycycline Hyclate 100 mg PO BID #10 tab 08/13/24 [Rx] Ondansetron [Zofran] 4 mg PO Q8HR PRN #21 tab 08/13/24 [Rx] oxyCODONE-APAP 10-325MG [Percocet 10-325 mg] 1 tab PO Q4HR PRN #42 tab 08/13/24 [Rx] Follow up Appointment(s)/Referral(s): Varinder Song MD [STAFF PHYSICIAN] - 08/20/24 1:00 pm Patient Instructions/Handouts: Shoulder Arthroplasty (DC) Activity/Diet/Wound Care/Special Instructions: keep wound clean and dry take meds as directed maintain sling NWB Discharge Disposition: HOME SELF-CARE
--- NOTE | 2024-08-13 14:56 | P.CONS ---
History of Present Illness - Reason for Consult Consult date: 08/13/24 - History of Present Illness History of present illness: 69-year-old male patient with past medically significant for prostate cancer, history of non-Hodgkin lymphoma in remission, hypertension, hyperlipidemia, history of coronary artery disease was admitted to hospital for left total shoulder arthroplasty. Patient failed conservative measures as outpatient and underwent elective surgery. Patient tolerated surgery without complications. Internal medicine consulted for medical management. Patient denied any fever, c hills, sore throat, productive cough, shortness of breath, chest pain, palpitation, nausea vomiting diarrhea constipation abdominal pain dysuria urgency frequency weakness or numbness of extremities. Pain is controlled. Patient denied any bowel movement, passing flatus tolerating p.o. intake. Patient afebrile, heart rate 81, respiratory rate 18, blood pressure 131/54, saturating 94% room air. WBC 16.4, hemoglobin 9.7, platelet 207. REVIEW OF SYSTEMS: CONSTITUTIONAL: No fever, no malaise, no fatigue. HEENT: No recent visual problems or hearing problems. Denied any sore throat. CARDIOVASCULAR: No chest pain, orthopnea, PND, no palpitations, no syncope. PULMONARY: No shortness of breath, no cough, no hemoptysis. GASTROINTESTINAL: No diarrhea, no nausea, no vomiting, no abdominal pain. NEUROLOGICAL: No headaches, no weakness, no numbness. HEMATOLOGICAL: Denies any bleeding or petechiae. GENITOURINARY: Denies any burning micturition, frequency, or urgency. MUSCULOSKELETAL/RHEUMATOLOGICAL: Denies any joint pain, swelling, or any muscle pain. ENDOCRINE: Denies any polyuria or polydipsia. The rest of the 14-point review of systems is negative. PHYSICAL EXAMINATION: GENERAL: The patient is A&O x3, NAD HEENT: EOMI, Sclerae anicteric, Moist Mucous membranes Neck: Supple, Non tender, No JVD PULMONARY: Equal breath souds B/L, No wheezing, No crackles. CARDIOVASCULAR: S1, S2 present. No murmurs, rubs, or gallops. ABDOMEN: Soft, nontender, nondistended, normoactive bowel sounds. No guarding or rebound tenderness. MUSCULOSKELETAL: No edema, No cyanosis. No clubbing. Normal ROM. Intact peripheral pulses. NEUROLOGICAL: CN 2-12 grossly intact. No FND Assessment and plan: Status post left shoulder total arthroplasty: Was following orthopedic for left shoulder pain, underwent left total shoulder arthroplasty on 08/12/2024 Management per orthopedics Hypertension Hyperlipidemia History of CAD status post CABG and PCI Continue home meds aspirin, Imdur, losartan, Crestor, hydrochlorothiazide, Ranexa, Norvasc, metoprolol. History of non-Hodgkin's lymphoma History of prostate cancer: Dictation was produced using [employer]ah[employer] dictation software. please excuse any grammatical, word or spelling errors. 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 Last Myocardial Infarction Date:: 08/14/15 History of Any Multi-Drug Resistant Organisms: None Reported Past Surgical History: Coronary Bypass/CABG, Heart Catheterization With Stent, Joint Replacement, Orthopedic Surgery, Tonsillectomy Additional Past Surgical History / Comment(s): BILAT ROTATOR CUFF REPAIR, RT CLAVICAL SX, CABG X2 in 1993 and 1997, total 14 stents, RT EYE CATARACT REMOVED, rt wrist surgery, Rt knee replacement, 3 epidural back injections, total rt shoulder replacement. Hearth cath with stents-pt states total 14 stents, Prostatectomy May 2024. Hx cellulitis of lt groin area. Past Anesthesia/Blood Transfusion Reactions: No Reported Reaction Additional Past Anesthesia/Blood Transfusion Reaction / Comm: Hx of blood transfusion- no reaction. Date of Last Stent Placement:: January 14/2018 Past Psychological History: No Psychological Hx Reported Additional Psychological History / Comment(s): denies Smoking Status: Former smoker Past Alcohol Use History: Occasional Additional Past Alcohol Use History / Comment(s): QUIT SMOKING 1993, smoked for 15 yrs, 3 PPD. Drinks wine at night with dinner 3-4 times a week (1 or 2 drinks) occasional beer at lunch. Past Drug Use History: None Reported - Past Family History Mother Family Medical History: Cancer Additional Family Medical History / Comment(s): Breast cancer Father Family Medical History: Hypertension Brother(s) Family Medical History: Cancer Additional Family Medical History / Comment(s): Prostate cancer, mesothelioma Sister(s) Family Medical History: Cancer Additional Family Medical History / Comment(s): Lymphoma Medications and Allergies Home Medications Medication Instructions Recorded Confirmed Type Isosorbide Mononitrate [Imdur] 120 mg PO BID 02/23/14 08/12/24 History Losartan [Cozaar] 50 mg PO QAM 02/23/14 08/12/24 History Rosuvastatin Calcium [Crestor] 40 mg PO HS 02/23/14 08/12/24 History Nitroglycerin Sl Tabs [Nitrostat] 0.4 mg SUBLINGUAL Q5M PRN #25 tab 08/16/15 08/12/24 Rx hydroCHLOROthiazide [Hydrodiuril] 12.5 mg PO QAM 02/03/17 08/12/24 History Ranolazine [Ranexa] 1,000 mg PO BID 09/10/17 08/12/24 History amLODIPine [Norvasc] 5 mg PO BID 09/10/17 08/12/24 History Hydrocodone/Acetaminophen 1 tab PO QID PRN 01/14/18 08/12/24 History [Hydrocodone/Acetaminophen 10-325] methocarbamoL [Robaxin-750] 750 mg PO QID 02/10/20 08/12/24 History Gabapentin 600 mg PO TID 08/23/20 08/12/24 History Lidocaine 5% Patch [Lidoderm 5% 1 patch TOPICAL QAM 08/23/20 08/12/24 History Patch] Metoprolol Tartrate [Lopressor] 25 mg PO BID 04/04/23 08/12/24 History Aspirin EC [Ecotrin Low Dose] 81 mg PO QAM 08/06/24 08/12/24 History Folic Acid(Unknown Dose) 1 dose PO QAM 08/06/24 08/12/24 History Indomethacin [Indocin] 25 mg PO QAM 08/06/24 08/12/24 History Tart Cheery (Unknown Dose) 1 dose PO 1200 08/06/24 08/12/24 History diphenhydrAMINE [Benadryl] 50 mg PO HS 08/06/24 08/12/24 History Docusate [Colace] 100 mg PO BID #60 capsule 08/13/24 Rx Doxycycline Hyclate 100 mg PO BID #10 tab 08/13/24 Rx Ondansetron [Zofran] 4 mg PO Q8HR PRN #21 tab 08/13/24 Rx oxyCODONE-APAP 10-325MG [Percocet 1 tab PO Q4HR PRN #42 tab 08/13/24 Rx 10-325 mg] Allergies Allergy/AdvReac Type Severity Reaction Status Date / Time adhesive Allergy Rash/Hives, Verified 08/12/24 07:26 RED SKIN ezetimibe [From Zetia] Allergy "FELT Verified 08/12/24 07:26 WEIRD AND SICK" Physical Exam Vitals: Vital Signs Temp Pulse Resp BP Pulse Ox 08/13/24 07:04 98.0 F 81 18 131/54 94 L 08/13/24 01:01 97.6 F 65 17 125/70 91 L 08/12/24 19:20 97.9 F 95 17 145/65 91 L 08/12/24 16:40 76 110/66 93 L 08/12/24 16:26 80 123/68 95 08/12/24 15:58 78 105/61 94 L 08/12/24 15:40 74 118/63 93 L 08/12/24 15:25 79 120/67 93 L 08/12/24 15:10 86 134/62 93 L 08/12/24 14:55 97.4 F L 87 18 142/77 94 L Intake and Output 08/12/24 08/13/24 08/13/24 22:59 06:59 14:59 Other: Voiding Method Toilet # Voids 1 2 Results CBC & Chem 7: 08/13/24 03:54 Labs: Abnormal Lab Results - Last 24 Hours (Table) 08/13/24 Range/Units 03:54 WBC 16.43 H (4.50-10.00) X 10*3/uL RBC 2.86 L (4.40-5.60) X 10*6/uL Hgb 9.7 L (13.0-17.0) g/dL Hct 30.6 L (39.6-50.0) % MCV 107.0 H (80.0-97.0) FL MCH 33.9 H (27.0-32.0) pg MCHC 31.7 L (32.0-37.0) g/dL RDW 15.6 H (11.5-14.5) % Immature Gran # 0.15 H (0.00-0.04) X 10*3/uL Neutrophils # 14.13 H (1.80-7.70) X 10*3/uL Lymphocytes # 0.76 L (0.90-5.00) X 10*3/uL Monocytes # 1.36 H (0.20-1.00) X 10*3/uL Eosinophils # 0 L (0.04-0.35) X 10*3/uL
== END 2024-08-13 13:16 | disposition home or self-care (01) ==
LOC: OR 06:44 → 4SSUR 14:16 → OR 08-13 13:16
PROVIDERS: ATTEND Orthopaedic Surgery Sports Medicine
DX: M19.012 Primary osteoarthritis, left shoulder (principal); M75.102 Unspecified rotator cuff tear or rupture of left shoulder, not specified as traumatic
CPT/HCPCS: 64415; 85025; 73020; 23472; C1776; J2250; J3370; J1100; J0690 ×3; J2405; J1171 ×2

== ENCOUNTER → 2024-08-30 | Outpatient (CLI) | payer MEDICARE, BC ==
--- NOTE | 2024-08-31 13:53 | US ---
EXAMINATION TYPE: US groin RT DATE OF EXAM: 08/30/2024 COMPARISON: NONE CLINICAL INDICATION: Male, 69 years old with history of R10.2 PELVIC AND PERENEAL PAIN; Rt groin/ hip pain x several months. No palpable area TECHNIQUE: several images taken at area of concern FINDINGS: there are two benign appearing lymph nodes at patients area of concern. no discrete abnorm ality or hernia visualized IMPRESSION: Normal-appearing lymph nodes. [facility], , 08/31/2024 1:51 PM
== END | disposition home or self-care (01) ==
LOC: RADUSWWP 14:55
PROVIDERS: ATTEND Family Medicine
DX: R10.2 Pelvic and perineal pain (principal); M25.551 Pain in right hip